=== PATIENT | female | born 1985 | race Caucasian/White ===

== ENCOUNTER 2022-03-08 13:31 | Emergency (ER) | payer MEDICAID, SELFPAY ==
[2022-03-08 13:32] VITALS: BP 132/88; PULSE 105; RESP 14; TEMP 36.7; O2SAT 97; BMI 25.9
[2022-03-08 14:05] LABS: Bacteria 0 SEEN /hpf (None Seen); Mucous, Urine 0 SEEN /hpf (<or=2+); Red Blood Cells-Urine 0 SEEN /hpf (0-5); Squamous Epithelial Cells - UA 0 SEEN /hpf (5-10); White Blood Cells 0 SEEN /hpf (0-5)
[2022-03-08 14:08] LABS: Color, Urine Yellow (Yellow); Glucose, Dipstick Normal (Normal); Ketone-Dipstick Negative (Negative); Leukocyte Esterase-Dipstick Negative /ul (Negative); Nitrite-Dipstick Negative (Negative); Occult Blood-Urine Negative /ul (Negative); Protein-Dipstick Negative (Negative); Urine Bilirubin Dipstick Negative (Negative); Urine Clarity Clear (Clear); Urine Urobilinogen Normal (Normal); Urine pH 6.5 (5.0 - 8.0)
--- NOTE | 2022-03-08 14:16 | ED.RN ---
PT STATES THEY CAN'T WAIT THIS LONG AND ALREADY HAVE A APPT WITH THE PCP TOMORROW.
== END 2022-03-08 14:14 | disposition left against medical advice (07) ==
LOC: ED 14:23
PROVIDERS: PCP Internal Medicine
DX: Z53.21 Procedure and treatment not carried out due to patient leaving prior to being seen by health care provider (principal)
CPT/HCPCS: 81001; 87428

== ENCOUNTER → 2022-03-09 | Outpatient (CLI) | payer MEDICAID, SELFPAY ==
[2022-03-09 11:06] LABS: Bacteria 0 SEEN /hpf (None Seen); Mucous, Urine 0 SEEN /hpf (<or=2+); Red Blood Cells-Urine 0 SEEN /hpf (0-5); Squamous Epithelial Cells - UA 0 SEEN /hpf (5-10); White Blood Cells 0 SEEN /hpf (0-5)
[2022-03-09 12:52] LABS: Color, Urine Yellow (Yellow); Glucose, Dipstick Normal (Normal); Ketone-Dipstick Negative (Negative); Leukocyte Esterase-Dipstick Negative /ul (Negative); Nitrite-Dipstick Negative (Negative); Occult Blood-Urine Negative /ul (Negative); Protein-Dipstick Negative (Negative); Urine Bilirubin Dipstick Negative (Negative); Urine Clarity Clear (Clear); Urine Urobilinogen Normal (Normal)
[2022-03-09 12:57] LABS: Absolute Lymphocyte Count 2.18 X10^3/uL (0.83-4.51); Absolute Neutrophil Count 4.8 X10^3/uL (2.0-7.7); Basophil# 0.06 X10^3/uL; Basophil% 0.8 % (0-1); Eosinophil# 0.06 X10^3/uL; Eosinophils% 0.8 % (0-5); Hematocrit 40.8 % (37-47); Hemoglobin 12.9 g/dL (12.0-15.0); Lymphocyte # 2.18 X10^3/ul (0.83-4.51); Lymphocyte % 28.8 % (19-41); Mean Corp Hgb Conc 31.6 g/dL (32-36); Mean Corpuscular Hgb 29.5 pg (27.0-32.0); Mean Corpuscular Volume 93.2 fL (81-99); Mean Platelet Vol. 8.9 fl (6.2-12.0); Monocyte# 0.47 X10^3/uL; Monocyte% 6.2 % (0-10); NRBC Flagged by Analyzer 0 % (0-5); Neutrophil # 4.76 X10^3/uL (2.7-7.7); Platelet Count 430 K/mm3 (150-450); RBC Distribution Width CV 12.3 % (11.6-14.6); RBC Distribution Width SD 42.5 fl (35.1-43.9); Red Blood Count 4.38 M/mm3 (4.2-5.4); White Blood Count 7.6 K/mm3 (4.4-11.0)
[2022-03-09 13:34] LABS: AST(SGOT) 16 U/L (15-37); Alanine Aminotransfer ALT/SGPT 25 U/L (13-56); Albumin, Serum 3.7 g/dL (3.2-5.0); Alkaline Phosphatase 64 U/L (45-117); Anion Gap 6 (5-15); BUN 9 mg/dL (7-18); Calcium,Total 8.7 mg/dL (8.5-10.1); Chloride 104 mmol/L (98-107); Creatinine, Serum 0.56 mg/dL (0.55-1.02); EST Glomerular Filtration Rate 130 mL/min (>60); Est Glom Filt Rate - Afr Amer 157 mL/min (>60); Globulin 3.7 g/dL (2.2-4.2); Glucose 119 mg/dL (74-106); Potassium 3.9 mmol/L (3.5-5.1); Protein, Total 7.4 g/dL (6.4-8.2); Sodium Level 137 mmol/L (136-145)
== END | disposition home or self-care (01) ==
LOC: BIMLAB 10:14
PROVIDERS: PCP Internal Medicine; Referring Provider Physician Assistant; Visit Provider Physician Assistant
DX: K21.9 Gastro-esophageal reflux disease without esophagitis (principal); R30.0 Dysuria
CPT/HCPCS: 36415; 80053; 81001; 85025; 87086; 87088

== ENCOUNTER → 2022-06-02 | Outpatient (CLI) | payer MEDICAID, SELFPAY ==
[2022-06-02 12:42] LABS: Erythrocyte Sedimentation Rate 5 mm/hr (0-30)
[2022-06-02 12:43] LABS: Absolute Lymphocyte Count 2.52 X10^3/uL (0.83-4.51); Basophil# 0.07 X10^3/uL; Basophil% 1.1 % (0-1); Eosinophil# 0.13 X10^3/uL; Eosinophils% 2.1 % (0-5); Hematocrit 38.1 % (37-47); Hemoglobin 12.6 g/dL (12.0-15.0); Lymphocyte # 2.52 X10^3/ul (0.83-4.51); Lymphocyte % 40.7 % (19-41); Mean Corp Hgb Conc 33.1 g/dL (32-36); Mean Corpuscular Hgb 30.1 pg (27.0-32.0); Mean Corpuscular Volume 90.9 fL (81-99); Mean Platelet Vol. 9.5 fl (6.2-12.0); Monocyte# 0.44 X10^3/uL; Monocyte% 7.1 % (0-10); NRBC Flagged by Analyzer 0 % (0-5); Neutrophil # 3.02 X10^3/uL (2.7-7.7); Neutrophil % 48.8 % (47-70); Platelet Count 391 K/mm3 (150-450); RBC Distribution Width CV 12.9 % (11.6-14.6); RBC Distribution Width SD 42.5 fl (35.1-43.9); Red Blood Count 4.19 M/mm3 (4.2-5.4); White Blood Count 6.2 K/mm3 (4.4-11.0)
[2022-06-02 12:57] LABS: Vitamin D,25 Hydroxy 126.4 ng/mL
[2022-06-02 13:13] LABS: AST(SGOT) 17 U/L (15-37); Alanine Aminotransfer ALT/SGPT 39 U/L (13-56); Alkaline Phosphatase 69 U/L (45-117); Anion Gap 9 (5-15); BUN 9 mg/dL (7-18); BUN/Creat Ratio 18.6 RATIO (10-20); CRP 6.24 mg/L (0.0-3.0); Calcium,Total 9.1 mg/dL (8.5-10.1); Chloride 98 mmol/L (98-107); Creatinine, Serum 0.48 mg/dL (0.55-1.02); EST Glomerular Filtration Rate 154 mL/min (>60); Est Glom Filt Rate - Afr Amer 187 mL/min (>60); Glucose 86 mg/dL (74-106); Potassium 3.6 mmol/L (3.5-5.1); Sodium Level 133 mmol/L (136-145); Thyroid Stim Hormone (TSH) 0.85 uIU/mL (0.358-3.74)
[2022-06-02 13:28] LABS: Carbamazepine (Tegretol) 10.2 ug/mL (4.0-12.0)
[2022-06-03 13:08] LABS: Anti-Centromere B Ab <0.2 AI (0.0-0.9); Anti-Chromatin <0.2 AI (0.0-0.9); Anti-Jo <0.2 AI (0.0-0.9); Anti-Scleroderma-70 AB <0.2 AI (0.0-0.9); RNP Ab 0.2 AI (0.0-0.9); SJOGREN'S Anti-SS-A test < 0.2 AI (0.0-0.9); SJOGREN'S Anti-SS-B test < 0.2 AI (0.0-0.9); Smith Ab <0.2 AI (0.0-0.9)
[2022-06-03 14:58] LABS: ANTINUCLEAR ANTIBODIES DIRECT Negative (Negative); Anti-dsDNA Ab 8 IU/mL (0-9)
[2022-06-07 16:36] LABS: CCP IgG Antibodies 3 units (0-19)
== END | disposition home or self-care (01) ==
LOC: BIMLAB 10:43
PROVIDERS: PCP Internal Medicine; Visit Provider Internal Medicine
DX: Z51.81 Encounter for therapeutic drug level monitoring (principal); Z79.899 Other long term (current) drug therapy; E55.9 Vitamin D deficiency, unspecified; M25.9 Joint disorder, unspecified
CPT/HCPCS: 36415; 80053; 80156; 82306; 84443; 85025; 85652; 86038; 86140; 86200; 86225; 86235

== ENCOUNTER → 2022-06-20 | Outpatient (CLI) | payer MEDICAID, SELFPAY ==
[2022-06-23 05:07] LABS: Chlamydia By Nucleic Acid AMP Negative (Negative); Gonococcus By Nucleic Acid AMP Negative (Negative)
[2022-06-28 21:07] LABS: HPV APTIMA, High Risk Negative (Negative)
== END | disposition home or self-care (01) ==
PROVIDERS: PCP Internal Medicine; Referring Provider Registered Nurse; Visit Provider Registered Nurse
DX: Z12.4 Encounter for screening for malignant neoplasm of cervix (principal); N89.8 Other specified noninflammatory disorders of vagina
CPT/HCPCS: 87070; 87205; 87491; 87591; 87624; 88175; G0145

== ENCOUNTER 2022-08-09 15:00 | Outpatient (RCR) | payer MEDICAID, SELFPAY ==
--- NOTE | 2022-07-04 13:39 | HP.OTEVAL ---
Patient's Visit Information AMBER BARRETT is a 36 year old F, referred to Occupational Therapy by Dr. Marty Villanueva MD, with a diagnosis of left wrist pain. Date of Evaluation: 07/04/22 Occupational Therapist: ANA Vences/Stanton, CHT - Subjective This 36 year old female was seen for OT eval with dx of left wrist pain. Pt states May of 2021 she suffered a fall down her stairs and broke her left wrist. Pt states she went to ER and 5-6 days following was seen by Loc Ortiz and had soft splinting done. Pt states she was in soft splinting (not a cast 6 weeks). Pt states she had a young child and did not undergo any therapy following removal of soft splint. Pt states when she put weight on her left hand to push up from the floor or other surfaces/or support herself. pt states would like to know what she can do to prevent pain with getting up off the floor etc. pt does not work and has a 3 year old dtr. so if she can not do what she needs done it does not get done. pt is right handed. - ADLs Kitchen: Chop with knife, Open jars, Lift gallon of milk, Lift saucepan, Take dish out of oven, Load/unload zinc furnace charger Household: Vacuum, Sweep/mop, Laundry Yard: Mow lawn Comments: self propelled mower - sore Comments: pt states carrying groceries is the most difficult. when carrying her dtr left wrist does hurt as well. - Pain left wrist 2 Pain Intensity Range: 5, 6 - ROM Forearm: right/left WNL (reports pulling in left radial side of wrist with pron. Wrist: right 75/65 left 65/40 ROM Comments: right RD 15* UD 30*. left RD 15* UD 30* - Strength Wrist: right 50# left 55# Mushroom Sorter Grader: right 12# left 12# Lateral Pinch: right 10# left 10# Tripod Pinch: right 6# left 6# - Sensation Thumb: right 2.83 left 2.83 Index: right 2.83 left 2.83 Middle: right 2.83 left 2.83 Ring: right 2.83 left 2.83 Little: right 2.83 left 2.83 Sensation Comments: tingling due to positive CTS testing in the past 2018. today reports tingling at times LF and RF - Special Tests Quiles Scaphoid Shift: negative CMC Grind: negative Thumb/Index Pinch: negative - Quick DASH-Disab of Arm,Shoulder& Hand Quick DASH Score: 38.6350 - Goals Goal:: pt will demo left wrist ROM increase by 20* to increase pts ind. with ADLs and IADls by d/c Goal:: pt will report pain no greater than 2/10 with use of left hand with daily tasks by d.c Goal:: pt will demo understanding of wrist stabilization ex to avoid excessive stress on wrist ligament structures by D/C. pt will demo wrist ergo with lifting tasks to alleviate pain with ADls and IADls by d.c Goal:: pt will demo understanding on using brace at night while sleeping and during heavy lifting tasks by d/c - Rehabilitation General Assessment: pt demo with a decrease in left wrist ROM compared to unaffected side as well as pain with wt bearing. this therapists did not feel click or pop with ROM. noted pt did feel better with light traction. pt demo with pain and limited ROM limiting pts ind. with ADLs and IADLS. Pt would benefit from skilled OT services 2x week for 4 weeks. Therapy will ed. pt on dx, work ergo. and ROM to pts tolerance. pt demo understanding and agree to POC. Rehabilitation Potential: Good - Anticipated Interventions A/AAROM/PROM, Strengthening, Modalities, Joint Protection/Energy Conservation, Ergonomic Education, Education re assistive Equipment, Education re Diagnosis - Visit Plan Frequency: 1-2x /Week Duration: 4 Weeks General Plan: pt to initiate wearing wrist brace at night and with heavy lift tasks. Pt to initiate short arch ROM to prevent ligament stress. will initiate wrist stabilization ex. ed. pt on wrist ergo and adaptive means to prevent carpal pain. TEXT: Thank you for the opportunity to evaluate your patient. For Medicare and Medicare HMO plans, please review the plan of care and approve it. It will need to be FAXED BACK to us at [phone] for Medicare purposes. Please let me know if there are questions or concerns regarding this plan of care. Physician Signature: Date:
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
--- NOTE | 2022-10-27 10:42 | HP.OTDCNRP_ITS ---
Patient Information Patient Information: AMBER BARRETT was seen in my office for initial evaluation on 07/04/22. The following Plan of Care was established for this patient: POC Established Initial Frequency: 1-2x /Week Initial Duration: 4 Weeks Plan: Continue POC: Anticipated Interventions Anticipated Interventions: A/AAROM/PROM, Strengthening, Modalities, Joint Protec tion/Energy Conservation, Ergonomic Education, Education re assistive Equipment and Education re Diagnosis Last Seen Last Seen: This patient was last seen in our office 08/09/22. Pertinent comments regarding their Occupational therapy will appear below: pt was seen for 3/5 scheduled apts. one cancellation and one no show- No further apts are scheduled at this time and due to time lapse in services pt is d/c. At this point I will be discontinuing this patient from occupational therapy. I would be happy to see this patient again in the future if found appropriate by the physician. Thank you! Katalina Fischer, OTR/L, CHT
== END 2022-08-09 19:00 | disposition home or self-care (01) ==
LOC: OT 15:00
PROVIDERS: PCP Internal Medicine; Referring Provider Orthopaedic Surgery Sports Medicine; Visit Provider Orthopaedic Surgery Sports Medicine
DX: M25.532 Pain in left wrist (principal); M50.30 Other cervical disc degeneration, unspecified cervical region; M53.84 Other specified dorsopathies, thoracic region; Z87.828 Personal history of other (healed) physical injury and trauma
CPT/HCPCS: 97110; 97161; 97166

== ENCOUNTER → 2022-09-13 | Outpatient (CLI) | payer MEDICAID, SELFPAY ==
[2022-09-13 14:02] LABS: Bacteria 0 SEEN /hpf (None Seen); Mucous, Urine 0 SEEN /hpf (<or=2+); Red Blood Cells-Urine 0 SEEN /hpf (0-5); White Blood Cells 0 SEEN /hpf (0-5)
[2022-09-13 14:33] LABS: Color, Urine Yellow (Yellow); Glucose, Dipstick Normal (Normal); Ketone-Dipstick Negative (Negative); Leukocyte Esterase-Dipstick 25 /ul (Negative); Nitrite-Dipstick Negative (Negative); Occult Blood-Urine 10 /ul (Negative); Protein-Dipstick Negative (Negative); Urine Bilirubin Dipstick Negative (Negative); Urine Clarity Clear (Clear); Urine Urobilinogen Normal (Normal)
[2022-09-13 14:44] LABS: Squamous Epithelial Cells - UA 0-5 SEEN /hpf (5-10)
== END | disposition home or self-care (01) ==
LOC: LAB 13:55
PROVIDERS: PCP Internal Medicine; Referring Provider Registered Nurse; Visit Provider Registered Nurse
DX: R30.0 Dysuria (principal)
CPT/HCPCS: 81001; 87086; 87088

== ENCOUNTER 2022-10-01 12:13 | Emergency (ER) | payer MEDICAID, SELFPAY ==
[2022-10-01 12:14] VITALS: BP 124/80; PULSE 84; RESP 16; TEMP 36.9; O2SAT 98; BMI 25.0
--- NOTE | 2022-10-01 12:39 | EDS_ITS ---
HPI HPI - Female History of Present Illness Chief Complaint: Female C/O Informant: patient Pain Pain: Positive for Vaginal Pain Onset: Yesterday Context: Gradual Onset Narrative Narrative: Patient presents with vaginal pain and itching for the past 2 days. She has not noted significant discharge. She denies urinary symptoms. Patient was seen earlier this month by [facility] for annual pelvic exam. Although prescription for Loestrin was written at that time she has not yet started that medication. [facility] Medical History Hx of carpal tunnel syndrome Hx of gallstones Hx of gastroesophageal reflux (GERD) Hx of osteoarthritis Left wrist pain Unspecified mood [affective] disorder Home Medications coenzyme Q10 10 mg capsule 10 mg PO DAILY #30 caps 11/18/21 [Rx Last Taken Unknown] ferrous sulfate 325 mg (65 mg iron) tablet (Feosol) 325 mg PO DAILY 11/18/21 [History Last Taken Unknown] ascorbic acid (vitamin C) 1,000 mg tablet 1 g PO DAILY #30 tabs 03/02/22 [Rx Last Taken Unknown] Lactobacillus acidophilus-Bifidobac.animalis 15.5 billion cell capsule (Zelac) 1 cap PO DAILY #30 caps 03/23/22 [Rx Last Taken Unknown] transparent dressings 4 X 4 3/4 #50 ea 03/31/22 [Rx Last Taken Unknown] atomoxetine 40 mg capsule (Strattera) 40 mg PO BID 04/19/22 [History Last Taken Unknown] hydroxyzine HCl 50 mg tablet 50 mg PO QHS 04/19/22 [History Last Taken Unknown] lurasidone 80 mg tablet (Latuda) 80 mg PO DAILY 04/19/22 [History Last Taken Unknown] guaifenesin 600 mg tablet, extended release 12 hr 600 mg PO Q12H PRN cough #20 tabs 05/02/22 [Rx Last Taken Unknown] fluticasone propionate 50 mcg/actuation nasal spray,suspension (Flonase Allergy Relief) 1 spray intranasal QHS #16 grams 05/05/22 [Rx Last Taken Unknown] carbamazepine 400 mg tablet,extended release,12 hr (Tegretol XR) 400 mg PO TID 06/02/22 [History Last Taken Unknown] ergocalciferol (vitamin D2) 1,250 mcg (50,000 unit) capsule 50,000 unit PO QWEEK 06/02/22 [History Last Taken Unknown] paroxetine HCl 37.5 mg tablet,extended release 24 hr (Paxil CR) 25 mg PO DAILY 06/02/22 [History Last Taken Unknown] norethindrone acetate 1 mg-ethinyl estradiol 20 mcg tablet (Loestrin) 1 tab PO DAILY #63 tabs 06/20/22 [Rx Last Taken Unknown] ahnbturkhd-MK-pgnbeqryugyhc 6.25 mg-15 mg-325 mg capsule (Nighttime Cold-Flu) 1 cap PO QHS PRN cold symptoms #10 caps 06/28/22 [Rx Last Taken Unknown] omeprazole 20 mg capsule,delayed release 20 mg PO BID #60 caps 07/07/22 [Rx Last Taken Unknown] methylcellulose (laxative) 500 mg tablet (Fiber Laxative (methylcellulose)) 500 mg PO DAILY #30 tabs 07/11/22 [Rx Last Taken Unknown] lactic acid 1.8 %-citric ac 1 %-potassium bitartate 0.4 % vaginal gel (Phexxi) 1 appful vaginal PER PKG DIR #60 grams 07/14/22 [Rx Last Taken Unknown] promethazine 12.5 mg tablet 12.5 mg PO TID PRN nausea and vomiting #10 tabs 08/15/22 [Rx Last Taken Unknown] nicotine 14 mg/24 hr daily transdermal patch 1 patch transdermal DAILY #28 ea 08/26/22 [Rx Last Taken Unknown] calcium carbonate 200 mg calcium (500 mg) chewable tablet (Antacid (calcium carbonate)) 200 mg PO BID PRN dyspepsia #60 tabs 09/05/22 [Rx Last Taken Unknown] multivitamin with minerals-folic acid 200 mcg chewable tablet (Women's Multivitamin Gummies) 1 tab PO DAILY #30 tabs 09/07/22 [Rx Last Taken Unknown] acetaminophen 500 mg capsule 1,000 mg (2 x 500 mg) PO BID PRN pain #120 caps 09/12/22 [Rx Last Taken Unknown] phenazopyridine 100 mg tablet (Pyridium) 100 mg PO TID #14 tabs 09/14/22 [Rx Last Taken Unknown] fluconazole 150 mg tablet (Diflucan) 150 mg PO DAILY #1 TAB 10/01/22 [Rx Last Taken Unknown] metronidazole 500 mg tablet 500 mg PO BID 7 days #14 tabs 10/01/22 [Rx Last Taken Unknown] Allergy/AdvReac Type Severity Reaction Status Date / Time amoxicillin Allergy Other Verified 06/20/22 13:06 sulfamethoxazole Allergy Other Verified 06/20/22 13:06 [From Bactrim] Corticosteroids AdvReac Mild ANXIETY Verified 10/01/22 12:16 (Glucocorticoids) Quinolones AdvReac Mild FATIGUE Verified 10/01/22 12:18 Family History Grandmother Arthritis Mother Multiple sclerosis Surgical History History of carpal tunnel release Hx of cholecystectomy Social History household members: children housing: apartment current occupational status: unemployed sexually active: No Smoking Status: Current every day smoker tobacco type: cigarettes Electronic Cigarette Use: not used alcohol intake: never substance use type: does not use what type of physical activity do you participate in: none seatbelt use: always do you feel safe at home: Yes ROS ROS ED Constitutional Constitutional ED: Denies chills or fever(s) Eyes Eyes: Denies change in vision ENT ENT ED: Denies rhinorrhea or sore throat Cardiovascular Cardiovascular: Denies chest pain Respiratory/Chest Respiratory/Chest: Denies cough or dyspnea Gastrointestinal Gastrointestinal: Denies abdominal pain, diarrhea, nausea or vomiting Genitourinary Genitourinary ED: Reports other Details: Vaginal pain and itching ; Denies difficulty urinating or dysuria Musculoskeletal Musculoskeletal: Denies back pain or extremity pain Integumentary Denies Abrasions or rash Neurologic Neurologic: Denies headache(s) or weakness Allergic/Immunologic Allergic/Immunologic ED: Denies lip swelling or urticaria EXAM Physical Exam Const Vital Signs: 10/01/22 12:14 Temperature 98.4 F Temperature Source Temporal Pulse Rate 84 Respiratory Rate 16 Blood Pressure 124/80 H Blood Pressure Mean 94 Pulse Ox 98 Oxygen Delivery Method Room Air Positive well nourished and well developed General Appearance ED: well developed HEENT Reports normocephalic and head/scalp atraumatic Eyes PERRL and EOMs intact bilaterally Neck supple Chest Wall inspection of chest normal and palpation of chest normal Resp normal respiratory effort and clear to auscultation bilaterally Cardio regular rate and regular rhythm GI normal to inspection, nondistended, normoactive bowel sounds Palpation: soft Narrative: Examination reveals no external lesions. Speculum examination reveals thick yellow discharge. I do not see obvious yeast at this time. No significant tenderness of the cervix. Extremity normal to inspection Neuro oriented x3 and no sensory deficits noted Sensorium / Orientation: alert Motor Exam: strength 5/5 throughout Psych mental status grossly normal Skin no rashes or lesions noted MDM MDM MDM Narrative Medical decision making narrative: Patient is adamant that she does not have an STD. Urinalysis was sent along with urine test. Urinalysis reveals 10-25 white cells but 0 bacteria. test is negative. With pelvic examination revealing yellow discharge I will cover her with 7 days of Flagyl for bacterial vaginosis. She will then be given a dose of Diflucan following this. Return instructions were provided. Lab Data Labs: Laboratory Results - last 24 hr 10/01/22 12:48 Urine Color Yellow Urine Clarity Sl. Cloudy Urine pH 6.0 Ur Specific [place] 1.015 Urine Protein 15 H Urine Glucose (UA) Normal Urine Ketones 5 H Urine Occult Blood 10 H Urine Nitrite Negative Urine Bilirubin Negative Urine Urobilinogen Normal Ur Leukocyte Esterase 100 H Urine RBC 0-5 SEEN Urine WBC 10-25 SEEN Ur Squamous Epith Cells 0-5 SEEN Urine Bacteria 0 SEEN Urine Mucus 0 SEEN Urine Test Negative Discharge Plan Triage Chief Complaint: Female C/O ED Provider: Mirtha Rajan Dx/Rx/DC Orders Clinical Impression: Bacterial vaginosis Instructions: ED Bacterial Vaginosis (BV) Prescriptions: New metronidazole 500 mg tablet 500 mg PO BID 7 Days Qty: 14 0RF fluconazole [Diflucan] 150 mg tablet 150 mg PO DAILY Qty: 1 0RF Rx Instructions: Take at completion of antibiotic course No Action ferrous sulfate [Feosol] 325 mg (65 mg iron) tablet 325 mg PO DAILY coenzyme Q10 10 mg capsule 10 mg PO DAILY Qty: 30 0RF ascorbic acid (vitamin C) 1,000 mg tablet 1 g PO DAILY Qty: 30 5RF norethindrone ac-eth estradiol [Loestrin 03/25 (21)] 1-20 mg-mcg tablet 1 tab PO DAILY Qty: 63 4RF atomoxetine [Strattera] 40 mg capsule 40 mg PO BID hydroxyzine HCl 50 mg tablet 50 mg PO QHS lurasidone [Latuda] 80 mg tablet 80 mg PO DAILY Rx Instructions: must administer with food (at least 350 calories) carbamazepine [Tegretol XR] 400 mg tablet extended release 12 hr 400 mg PO TID paroxetine HCl [Paxil CR] 37.5 mg tablet extended release 24 hr 25 mg PO DAILY fluticasone propionate [Flonase Allergy Relief] 50 mcg/actuation spray,suspension 1 spray intranasal QHS Qty: 16 0RF Rx Instructions: administer into each nostril ergocalciferol (vitamin D2) 1,250 mcg (50,000 unit) capsule 50,000 unit PO QWEEK Zelac 15.5 billion cell capsule 1 cap PO DAILY Qty: 30 2RF (DME) transparent dressings 4 X 4 3/4 bandage See Rx Instructions .Route Qty: 50 2RF Rx Instructions: Change daily guaifenesin 600 mg tablet extended release 12hr 600 mg PO Q12H PRN (Reason: cough) Qty: 20 0RF Nighttime Cold-Flu 6.25-15-325 mg capsule 1 cap PO QHS PRN (Reason: cold symptoms) Qty: 10 0RF omeprazole 20 mg capsule,delayed release(DR/EC) 20 mg PO BID Qty: 60 2RF Fiber Laxative(methylcellulos) 500 mg tablet 500 mg PO DAILY Qty: 30 0RF Phexxi 1.8-1-0.4 % gel 1 appful vaginal PER PKG DIR Qty: 60 3RF Rx Instructions: insert 1 applicatorful vaginally within 1 hour before each act of vaginal intercourse promethazine 12.5 mg tablet 12.5 mg PO TID PRN (Reason: nausea and vomiting) Qty: 10 0RF Rx Instructions: 2 doses during day; last dose no later than 4 hr before bedtime nicotine 14 mg/24 hr patch 24 hour 1 patch transdermal DAILY Qty: 28 1RF calcium carbonate [Antacid (calcium carbonate)] 200 mg calcium (500 mg) tablet,chewable 200 mg PO BID PRN (Reason: dyspepsia) Qty: 60 0RF Women's Multivitamin Gummies 200 mcg tablet,chewable 1 tab PO DAILY Qty: 30 1RF acetaminophen 500 mg capsule 1,000 mg PO BID PRN (Reason: pain) Qty: 120 0RF phenazopyridine [Pyridium] 100 mg tablet 100 mg PO TID Qty: 14 0RF Primary Care Provider: More Denson Referrals: More Denson MD [Primary Care Provider] - Nida Burrell CNM [Med Staff - [facility]] - 10-14 Days if not better Disposition Disposition: Home, Self Care
[2022-10-01 12:52] LABS: Bacteria 0 SEEN /hpf (None Seen); Mucous, Urine 0 SEEN /hpf (<or=2+)
[2022-10-01 12:57] LABS: Color, Urine Yellow (Yellow); Glucose, Dipstick Normal (Normal); Ketone-Dipstick 5 mg/dl (Negative); Leukocyte Esterase-Dipstick 100 /ul (Negative); Nitrite-Dipstick Negative (Negative); Occult Blood-Urine 10 /ul (Negative); Protein-Dipstick 15 mg/dl (Negative); Specific Gravity, Urine 1.015 (1.002-1.030); Urine Bilirubin Dipstick Negative (Negative); Urine Clarity Sl. Cloudy (Clear); Urine Urobilinogen Normal (Normal)
[2022-10-01 13:06] LABS: Internal QC Validated? YES +Cl - CLEAR BKGD; Red Blood Cells-Urine 0-5 SEEN /hpf (0-5); Squamous Epithelial Cells - UA 0-5 SEEN /hpf (5-10); White Blood Cells 10-25 SEEN /hpf (0-5)
[2022-10-01 13:07] LABS: Pregnancy, Urine Negative Negative
[2022-10-01 13:27] VITALS: RESP 16
== END 2022-10-01 13:29 | disposition home or self-care (01) ==
PROVIDERS: Emergency Provider Emergency Medicine; PCP Internal Medicine; Visit Provider Emergency Medicine
DX: N76.0 Acute vaginitis (principal); F17.210 Nicotine dependence, cigarettes, uncomplicated
CPT/HCPCS: 81001; 81025; 99282

== ENCOUNTER → 2022-10-31 | Outpatient (CLI) | payer MEDICAID, SELFPAY ==
--- NOTE | 2022-10-31 12:54 | MRI_ITS ---
EXAM: MR Spine Cervical W/O Contrast HISTORY: pain, h/o fall down steps 1 yr ago TECHNIQUE: MR Spine Cervical W/O Contrast COMPARISON: XR cervical spine June 27, 2022. LIMITATIONS: None. FINDINGS: Slight anterior wedge deformity of C5 is similar to the prior exam. No acute fracture. No gross disc protrusion. No central canal stenosis. Signal within the spinal cord is normal. 4 mm nodule is suspected in the left lobe of the thyroid gland. MRI/Spine Cervical (Routine) IMPRESSION: No significant abnormality. Electronically Signed: Jordin Soriano MD at 6:02 EDT ,
--- NOTE | 2022-10-31 12:54 | MRI_ITS ---
EXAM: MR Spine Thoracic W/O Contrast HISTORY: pain, h/o fall down steps 1 yr ago TECHNIQUE: MR Spine Thoracic W/O Contrast COMPARISON: XR thoracic spine June 27, 2022. LIMITATIONS: None. FINDINGS: No acute fracture identified. No gross disc protrusion or central canal stenosis. Signal within the spinal cord is normal. Hemangioma in the T6 vertebral body. The common bile duct is mildly dilated measuring 6 to 7 mm. A 2 cm nodule in the left adrenal gland is suspected. MRI/Spine Thoracic (Routine) IMPRESSION: No significant abnormality of the thoracic spine. Suspected 2 cm left adrenal nodule. Mild dilatation of the common bile duct. Nonemergent CT abdomen and pelvis is recommended to evaluate the adrenal nodule and common bile duct. Electronically Signed: Jordin Soriano MD at 5:49 EDT ,
== END | disposition home or self-care (01) ==
PROVIDERS: PCP Internal Medicine; Referring Provider Orthopaedic Surgery; Visit Provider Orthopaedic Surgery
DX: M53.84 Other specified dorsopathies, thoracic region (principal); M50.30 Other cervical disc degeneration, unspecified cervical region
CPT/HCPCS: 72141; 72146

== ENCOUNTER → 2022-11-23 | Outpatient (CLI) | payer MEDICAID, SELFPAY ==
--- NOTE | 2022-11-23 12:33 | US_ITS ---
ACR Level 3 findings have been noted. An addendum which confirms receipt of the report will follow. EXAM: US SOFT TISSUES HEAD AND NECK, THYROID CLINICAL INDICATION: thyroid nodule TECHNIQUE: Greyscale and color doppler imaging was performed of the thyroid gland. COMPARISON: MRI cervical spine, 10/31/2022. FINDINGS: LEFT THYROID LOBE: 4 mm left thyroid nodule. This nodule is of uncertain composition due to calcification, is of indeterminate echogenicity, pqgcj-ajrg-npkz, ill-defined, contains microcalcifications and is peripherally calcified. TI-RADS points: 6. TI-RADS category: TR4. This nodule is moderately suspicious but no FNA or follow-up is necessary given the small size of this nodule. The left thyroid lobe measures 4.6 x 1.9 x 1.7 cm. 6 mm left thyroid nodule. This nodule is mixed cystic and solid, very hypoechoic, iorgj-utyc-xwvr, ill-defined and contains no echogenic foci. TI-RADS points: 4. TI-RADS category: TR4. This nodule is moderately suspicious but no FNA or follow-up is necessary given the small size of this nodule. 7 mm left thyroid nodule. This nodule is solid or almost completely solid, hyperechoic or isoechoic, elnsp-mmlp-epna, ill-defined and contains no echogenic foci. TI-RADS points: 3. TI-RADS category: TR3. This nodule is mildly suspicious but no FNA or follow-up is necessary given the small size of this nodule. RIGHT THYROID LOBE: There is a 1.6 cm right thyroid lobe nodule. It may be 2 adjacent nodules. This nodule is solid or almost completely solid, hyperechoic or isoechoic, tlree-rogt-fjeg, is lobulated or irregular, contains microcalcifications and contains punctate echogenic foci. TI-RADS points: 9. TI-RADS category: TR5. This nodule is highly suspicious. Recommend FNA evaluation. 5 mm right thyroid nodule. This nodule is of uncertain composition due to calcification, is of indeterminate echogenicity, bkfkz-iulq-tbdg, ill-defined, contains microcalcifications and is peripherally calcified. TI-RADS points: 6. TI-RADS category: TR4. This nodule is moderately suspicious but no FNA or follow-up is necessary given the small size of this nodule. There is a 6 mm nodule which is either exophytic from or distinct from the thyroid posteriorly in the right lobe. This nodule is solid or almost completely solid, hypoechoic, rslyp-xxao-vpee, smoothly marginated and contains no echogenic foci. TI-RADS points: 4. TI-RADS category: TR4. This nodule is moderately suspicious but no FNA or follow-up is necessary given the small size of this nodule. It is possible that this is a parathyroid adenoma. Correlate clinically and follow-up as necessary. The right thyroid lobe measures 4.9 x 1.7 x 1.9 cm. ISTHMUS: The thyroid isthmus measures 0.3 cm. No thyroid nodules are present. US/Thyroid IMPRESSION: 1. There is a 1.6 cm right thyroid lobe nodule. It may be 2 adjacent nodules. This nodule is solid or almost completely solid, hyperechoic or isoechoic, pwkkb-eder-vzjn, is lobulated or irregular, contains microcalcifications and contains punctate echogenic foci. TI-RADS points: 9. TI-RADS category: TR5. This nodule is highly suspicious. Recommend FNA evaluation. 2. There is a 6 mm nodule which is either exophytic from or distinct from the thyroid posteriorly in the right lobe. This nodule is solid or almost completely solid, hypoechoic, nwktr-kucg-kbur, smoothly marginated and contains no echogenic foci. TI-RADS points: 4. TI-RADS category: TR4. This nodule is moderately suspicious but no FNA or follow-up is necessary given the small size of this nodule. It is possible that this is a parathyroid adenoma. Correlate clinically and follow-up as necessary. 3. Other nodules including the body report with either based on size or characteristics do not require FNA or follow-up. Electronically Signed: Harvey Banda DO at 20:38 EDT ,
== END | disposition home or self-care (01) ==
PROVIDERS: PCP Internal Medicine; Referring Provider Internal Medicine; Visit Provider Internal Medicine
DX: E04.1 Nontoxic single thyroid nodule (principal)
CPT/HCPCS: 76536

== ENCOUNTER → 2022-11-29 | Outpatient (CLI) | payer MEDICAID, SELFPAY ==
--- NOTE | 2022-11-29 08:33 | CT_ITS ---
STUDY: CT ABDOMEN AND PELVIS WITH AND WITHOUT CONTRAST REASON FOR EXAM: Female, 37 years old. Adrenal nodule. RADIATION DOSAGE (If Supplied By Facility): CTDIvol = ( 21.23 ) mGy, DLP = ( 2489.93 ) mGycm TECHNIQUE: Transaxial images were obtained from the dome of the diaphragm to the symphysis pubis without oral contrast. 100ML ISOVUE 300 was administered. Sagittal and coronal images were reconstructed. Individualized dose optimization techniques were used for this CT. COMPARISON: None. FINDINGS: The visualized lung bases are unremarkable. The visualized portions of the heart are within normal limits. There is decreased attenuation of the liver consistent with steatosis. There are surgical clips in the gallbladder fossa consistent with a prior cholecystectomy. Normal spleen. Normal pancreas. There is a small, circumscribed, smooth, low attenuation left adrenal mass, consistent with an adrenal adenoma. This measures 1.7 cm. Normal right adrenal gland. Normal right kidney. Normal left kidney. Normal visualized stomach. Normal small intestine. Normal colon. The appendix is visualized and appears normal. Normal abdominal aorta. Normal inferior vena cava. Normal retroperitoneum. Normal urinary bladder. Normal abdominal wall. Normal osseous structures. CT/CT Abd/Pelvis W/WO Contrast IMPRESSION: Fatty infiltration of the liver. 1.7 cm well-defined hypodense nodule in the left adrenal gland suggestive of a adrenal adenoma. Status post cholecystectomy. Electronically Signed: Prasanna Braun MD at 12:57 EDT ,
== END | disposition home or self-care (01) ==
LOC: CT 08:26
PROVIDERS: PCP Internal Medicine; Referring Provider Internal Medicine; Visit Provider Internal Medicine
DX: E27.8 Other specified disorders of adrenal gland (principal)
CPT/HCPCS: 74178; Q9967

== ENCOUNTER → 2022-12-09 | Outpatient (CLI) | payer MEDICAID, SELFPAY ==
--- NOTE | 2022-12-09 | FLU_PTH ---
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 U#:[id number] AGE/SX: 37/F ROOM: RE12/09/[address]: Dr. Anastacio Alcala MD : 1985 BED: DIS: 12/09/2022 SPEC #: [id number] RECD: 12/09/22 17:03 STATUS: BRYAN CHICA #: [id number] THA: 12/09/22 00:[address]: Anastacio Alcala DEPT: CYTOLOGY RECD BY: Sandeep Henry ENTERED: 12/12/22 09:28 SP TYPE: Fluid OTHR DR: Dr. More Denson MD Tissues: A - Thyroid gland, NOS B - Thyroid gland, NOS C - Thyroid gland, NOS D - Thyroid gland, NOS Procedures: Special Stain Group II Surgery Specimen Level IV Cytospin Fluid HEADER OPERATION: Fine needle aspiration, isthmic and left mid pole thyroid nodule PRE-OP DIAGNOSIS: Left mid pole and isthmic nodule TISSUE SUBMITTED: A - FNA left thyroid nodule fluid, B - FNA left thyroid nodule x4 slides, C - FNA isthmic nodule fluid, D - FNA isthmic nodule x4 slides DIAGNOSIS CYTOLOGY A. Fine needle aspiration, left thyroid nodule (cytospin and cell block): Papillary thyroid carcinoma ([place] Category ). See comment. B. Fine needle aspiration, left thyroid nodule (smears): Papillary thyroid carcinoma ([place] Category ). See comment. C. Fine needle aspiration, isthmic nodule (cytospin and cell block): Papillary thyroid carcinoma ([place] Category ). See comment. D. Fine needle aspiration, isthmic nodule (smears): Papillary thyroid carcinoma ([place] Category ). See comment. AM:juana 12/13/2022 COMMENT A. Multi-gene next-generation sequencing panel ([facility]) is recommended for this lesion. This recommendation was communicated to the physician's office. The [place] System for thyroid diagnostic categorization was used in the evaluation of this case. CYTOLOGY STUDY Slides are reviewed. CYTOLOGY GROSS A - Received is 20 ml of red cloudy fluid labeled with the patient's name and and designated per the requisition as left thyroid nodule. Submitted for cytology preparation including cell block. B - Received are four smears labeled with the patient's name and designated per the requisition as left thyroid nodule. Submitted for staining. C - Received is 50 ml of red cloudy fluid labeled with the patient's name and and designated per the requisition as isthmic nodule. Submitted for cytology preparation including cell block. D - Received are four smears labeled with the patient's name and designated per the requisition as isthmic nodule. Submitted for staining. / juana 12/12/2022 TC:0 CPT: 24213 x6, 09663 x3
== END | disposition home or self-care (01) ==
PROVIDERS: PCP Internal Medicine; Visit Provider Surgery
DX: C73 Malignant neoplasm of thyroid gland (principal)
CPT/HCPCS: 88108; 88305; 88313

== ENCOUNTER → 2022-12-16 | Outpatient (CLI) | payer MEDICAID, SELFPAY ==
--- NOTE | 2022-12-16 12:24 | US_ITS ---
INDICATION: thryoid cancer -- looking for lymph node mets EXAMINATION: Ultrasound US Head/Neck Soft Tissue TECHNIQUE: Perkins scale and color doppler imaging was performed of the thyroid gland. COMPARISON: Prior study dated: 11/23/2022 FINDINGS: Left: There are 2.3 x 1.0 x 1.4 cm and 1.3 x 1.0 x 1.0 cm level Ib lymph nodes. There is a 1.0 x 0.5 x 0.4 cm zone 3 lymph node. There is a 0.9 x 0.5 x 0.3 cm zone 3 lymph node. Right: There is a 1.1 x 0.9 x 0.8 cm zone Ib lymph node. There are 1.6 x 1.3 x 0.5 cm and 1.4 x 0.4 x 1.3 cm zone 2 lymph nodes. US/Head/Neck Soft Tissue IMPRESSION: * Prominent left level Ib lymph node measuring 1.0 cm short axis. This lymph node would be amenable to ultrasound-guided FNA. * There is a borderline enlarged level 1B lymph node measuring 1.0 cm short axis with 0.4 cm cortex. Attention on follow-up. * There are additional lymph nodes not meeting size criteria for pathologic enlargement. Electronically Signed: Elie Brown MD at 16:33 EDT ,
== END | disposition home or self-care (01) ==
LOC: US 12:18
PROVIDERS: PCP Internal Medicine; Referring Provider Internal Medicine; Visit Provider Surgery
DX: C73 Malignant neoplasm of thyroid gland (principal)
CPT/HCPCS: 76536

== ENCOUNTER → 2022-12-28 | Outpatient (CLI) | payer MEDICAID, SELFPAY ==
--- NOTE | 2022-12-27 11:00 | FLU_PTH ---
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 Anastacio Alcala MD : 1985 BED: DIS: 12/28/2022 SPEC #: [id number] RECD: 12/28/22 12:34 STATUS: BRYAN RETasia #: [id number] THA: 12/27/22 11:[address]: Anastacio Alcala DEPT: CYTOLOGY RECD BY: Brittany Ramirez ENTERED: 12/29/22 06:08 SP TYPE: Fluid OTHR DR: Dr. More Denson MD Tissues: A - Lymph node, NOS B - Lymph node, NOS Procedures: Special Stain Group II Surgery Specimen Level IV Cytospin Fluid Cytology Other HEADER OPERATION: Fine needle aspiration left lymph node PRE-OP DIAGNOSIS: Left lymph node TISSUE SUBMITTED: A - Left lymph node fluid, B - Left lymph node x4 slides DIAGNOSIS CYTOLOGY A. Left lymph node fluid, fine needle aspiration (cytospin and cell block): Negative for malignant cells. See comment. B. Left lymph node, fine needle aspiration (smears): Negative for malignant cells. See comment. TIEN:juana 12/29/2022 COMMENT A & B. The specimens consist of predominantly small lymphocytes. Please make reference to previous specimen ([id number]) FNA, left thyroid nodule, FNA, isthmic nodule, FNA with diagnosis of papillary thyroid carcinoma. Correlation with clinical, radiologic findings and appropriate follow up are necessary. Case has been reviewed in consultation with Dr. Quick who concurs with the above diagnosis. IDC:AM CYTOLOGY STUDY Slides are reviewed. CYTOLOGY GROSS A - Received is 30 ml of red fluid labeled with the patient's name and and designated per the requisition as left lymph node. Submitted for cytology preparation including cell block. B - Received are four smears labeled with the patient's name and designated per the requisition as left lymph node. Submitted for staining. / juana 12/28/2022 TC:5 CPT: 61656 x2, 74396
== END | disposition home or self-care (01) ==
LOC: LABSPEC 12:49
PROVIDERS: PCP Internal Medicine; Referring Provider Surgery; Visit Provider Surgery
DX: R59.0 Localized enlarged lymph nodes (principal)
CPT/HCPCS: 88108; 88161; 88305; 88313

== ENCOUNTER → 2023-01-09 | Outpatient (CLI) | payer MEDICAID, SELFPAY ==
[2023-01-09 08:31] LABS: Mucous, Urine 0 SEEN /hpf (<or=2+)
[2023-01-09 12:31] LABS: Color, Urine Yellow (Yellow); Glucose, Dipstick Normal (Normal); Ketone-Dipstick Negative (Negative); Leukocyte Esterase-Dipstick 25 /ul (Negative); Nitrite-Dipstick Negative (Negative); Occult Blood-Urine 10 /ul (Negative); Protein-Dipstick Negative (Negative); Urine Bilirubin Dipstick Negative (Negative); Urine Clarity Sl. Cloudy (Clear); Urine Urobilinogen Normal (Normal); Urine pH 6.5 (5.0 - 8.0)
[2023-01-09 12:39] LABS: Bacteria 1+ /hpf (None Seen); Red Blood Cells-Urine 0-5 SEEN /hpf (0-5); Squamous Epithelial Cells - UA 0-5 SEEN /hpf (5-10); White Blood Cells 0-5 SEEN /hpf (0-5)
== END | disposition home or self-care (01) ==
LOC: LABSPEC 08:21
PROVIDERS: PCP Internal Medicine; Referring Provider Internal Medicine; Visit Provider Internal Medicine
DX: R30.0 Dysuria (principal)
CPT/HCPCS: 81001; 87086; 87088

== ENCOUNTER 2023-02-10 11:22 | Observation (INO) | payer MEDICAID, SELFPAY ==
[2023-02-10] VITALS (14 sets, daily range): BP systolic 86–135; BP diastolic 57–89; PULSE 90–126; RESP 14–20; TEMP 36.5–37.3; O2SAT 92–98; BMI 26.9
--- NOTE | 2023-02-10 | IMM_PTH ---
PATIENT: AMBER BARRETT LOC: [facility] U#:[id number] AGE/SX: 37/F ROOM: MA318 RE02/10/[address]: Dr. Anastacio Alcala MD : 1985 BED: 1 DIS: 02/11/2023 SPEC #: [id number] RECD: 02/13/23 14:17 STATUS: BRYAN REQ #: [id number] THA: 02/10/23 00:[address]: Anastacio Alcala DEPT: IMMUNOHISTOCHEMISTRY RECD BY: Lori Lopez ENTERED: 02/13/23 14:19 SP TYPE: IMMUNO OTHR DR: Dr. More Denson MD Tissues: Thyroid gland, NOS Procedures: HBME (initial) CD56 (add) CK19 (add) GAL-3 (add) HBME (add) PHYSICIAN & INSTITUTION [place] [id number] SPECIMEN INFORMATION: Tissue Source: Thyroid Clinical Info: Thyroid cancer, left cervical lymphadenopathy Specimen Number: [id number] #1, 4 & 7 CPT code: 14736, 22572 x12 METHODOLOGY: Deparaffinized sections of prefer/formalin-fixed tissue or PAP/DQ stained slides are incubated with monoclonal/polyclonal antibodies/oligonucleotide probes. Localization is made via biotin free immunoperoxidase method. Appropriate controls are performed and reacted as expected. Results on target cell population are indicated in the following table: RESULTS: ANTIBODY / CLONE RESULT Block 1 HBME1 (HBME-1) positive CK19 (A53-B/A2.26) positive GAL3 (9C4) negative CD56 (123C3.D5) positive Block 4 HBME1 (HBME-1) positive CK19 (A53-B/A2.26) positive GAL3 (9C4) positive CD56 (123C3.D5) negative Block 7 HBME1 (HBME-1) positive CK19 (A53-B/A2.26) positive GAL3 (9C4) positive CD56 (123C3.D5) negative These tests were developed and their performance characteristics determined by [facility]. They may not have been cleared or approved by the [place]. Food and Drug Administration. The FDA has determined that such clearance or approval is not necessary. The above immunohistochemical/dualISH markers are ordered and reviewed by the Pathologist. INTERPRETATION: Thyroid, total thyroidectomy: Papillary thyroid carcinoma (block 4 & 7). Adenomatoid nodules (block 1). Juan 02/14/2023 Case has been reviewed in consultation with Dr. Quick who concurs with the above diagnosis. IDC:AM
[2023-02-10 06:33] LABS: Internal QC Validated? YES +Cl - CLEAR BKGD; Pregnancy, Urine Negative Negative
[2023-02-10] MEDS: Lactated Ringers 1,000 ML 15 ML IV ×2 (07:01→11:10)
--- NOTE | 2023-02-10 07:01 | PCM.HP.BLA ---
History and Physical Date of Admission: 02/10/23 Date of Service: 12/28/22 MR#: [id number] Acct: [id number] Name: AMBER BARRETT Rep #: [id number] : 1985 Provider: Dr. Anastacio Alcala MD Age/Sex: 37/F Location: [facility] Status: Signed Intake Vital Signs 12/10/2307:45 Height 5 ft 4 in Weight: 156 lb BMI 26.7 BP 137/91 H Blood Pressure Location Lt brachial Position Sitting Respiration 17 Pulse 101 H Pulse Source Monitor Temp 97.5 F L Temp Source Temporal Pulse Oximetry (%) 100 Oxygen Delivery Method room air Intake Visit Reasons: REVIEW THYROID U/S Chief Complaint: thyroid nodules Allergies amoxicillin Allergy (Verified 12/28/22 10:43) Othersulfamethoxazole [From Bactrim] Allergy (Verified 12/28/22 10:43) OtherCorticosteroids (Glucocorticoids) Adverse Reaction (Mild, Verified 12/28/22 10:43) ANXIETYQuinolones Adverse Reaction (Mild, Verified 12/28/22 10:43) FATIGUE Medications coenzyme Q10 10 mg capsule 10 mg PO DAILY #30 caps 11/18/21 [Rx Confirmed 12/28/22] ferrous sulfate 325 mg (65 mg iron) tablet (Feosol) 325 mg PO DAILY 11/18/21 [History Confirmed 12/28/22] ascorbic acid (vitamin C) 1,000 mg tablet 1 g PO DAILY #30 tabs 03/02/22 [Rx Confirmed 12/28/22] Lactobacillus acidophilus-Bifidobac.animalis 15.5 billion cell capsule (Zelac) 1 cap PO DAILY #30 caps 03/23/22 [Rx Confirmed 12/28/22] transparent dressings 4 X 4 3/4 #50 ea 03/31/22 [Rx Confirmed 12/28/22] atomoxetine 40 mg capsule (Strattera) 40 mg PO BID 04/19/22 [History Confirmed 12/28/22] hydroxyzine HCl 50 mg tablet 50 mg PO QHS 04/19/22 [History Confirmed 12/28/22] lurasidone 80 mg tablet (Latuda) 80 mg PO DAILY 04/19/22 [History Confirmed 12/28/22] guaifenesin 600 mg tablet, extended release 12 hr 600 mg PO Q12H PRN cough #20 tabs 05/02/22 [Rx Confirmed 12/28/22] fluticasone propionate 50 mcg/actuation nasal spray,suspension (Flonase Allergy Relief) 1 spray intranasal QHS #16 grams 05/05/22 [Rx Confirmed 12/28/22] paroxetine HCl 37.5 mg tablet,extended release 24 hr (Paxil CR) 25 mg PO DAILY 06/02/22 [History Confirmed 12/28/22] methylcellulose (laxative) 500 mg tablet (Fiber Laxative (methylcellulose)) 500 mg PO DAILY #30 tabs 07/11/22 [Rx Confirmed 12/28/22] lactic acid 1.8 %-citric ac 1 %-potassium bitartate 0.4 % vaginal gel (Phexxi) 1 appful vaginal PER PKG DIR #60 grams 07/14/22 [Rx Confirmed 12/28/22] calcium carbonate 200 mg calcium (500 mg) chewable tablet (Antacid (calcium carbonate)) 200 mg PO BID PRN dyspepsia #60 tabs 09/05/22 [Rx Confirmed 12/28/22] multivitamin with minerals-folic acid 200 mcg chewable tablet (Women's Multivitamin Gummies) 1 tab PO DAILY #30 tabs 09/07/22 [Rx Confirmed 12/28/22] phenazopyridine 100 mg tablet (Pyridium) 100 mg PO TID #14 tabs 09/14/22 [Rx Confirmed 12/28/22] fluconazole 150 mg tablet (Diflucan) 150 mg PO DAILY #1 TAB 10/01/22 [Rx Confirmed 12/28/22] metronidazole 500 mg tablet 500 mg PO BID 7 days #14 tabs 10/01/22 [Rx Confirmed 12/28/22] omeprazole 20 mg capsule,delayed release 20 mg PO BID #60 caps 11/08/22 [Rx Confirmed 12/28/22] carbamazepine 400 mg tablet,extended release,12 hr (Tegretol XR) 200 mg PO TID 11/09/22 [History Confirmed 12/28/22] syhoxobpgn-QP-ckkkpdylqacbr 6.25 mg-15 mg-325 mg capsule (Nighttime Cold-Flu) 1 cap PO QHS PRN cold symptoms #10 caps 11/09/22 [Rx Confirmed 12/28/22] dexamethasone 1 mg tablet 1 mg PO ONCE #1 TAB 11/29/22 [Rx Confirmed 12/28/22] promethazine 12.5 mg tablet 12.5 mg PO TID PRN nausea and vomiting #90 tabs 12/05/22 [Rx Confirmed 12/28/22] acetaminophen 500 mg capsule 1,000 mg (2 x 500 mg) PO BID PRN pain #120 caps 12/20/22 [Rx Confirmed 12/28/22] nicotine 7 mg/24 hr daily transdermal patch 1 patch transdermal DAILY #14 ea 12/26/22 [Rx Confirmed 12/28/22] PFSH Medical History Hx of carpal tunnel syndrome Hx of gallstones Hx of gastroesophageal reflux (GERD) Hx of osteoarthritis Left wrist pain Thyroid cancer Unspecified mood [affective] disorder Surgical History History of carpal tunnel release Hx of cholecystectomy Family History Grandmother ArthritisMother Multiple sclerosis Social History household members: children housing: apartment current occupational status: unemployed sexually active: No Smoking Status: Former smoker Electronic Cigarette Use: not used alcohol intake: never substance use type: does not use what type of physical activity do you participate in: none seatbelt use: always do you feel safe at home: Yes Female Reproductive History Menstrual Ab induced: 1 HPI HPI HPI: Patient is a 37-year-old female who presents for evaluation of newly diagnosed thyroid nodules and diagnosis of thyroid cancer after initial consultation visit 12/09/2022. They are referred for surgical consultation from Dr. Denson. In the interim patient completed a soft tissue ultrasound at my request for lymph node mapping purposes and I telephoned her the results that show a prominent level 1B lymph node on the left side which radiology recommended for biopsy. Following patient's last biopsy she had some significant tenderness, but states that this improved with time. She denies any other health issues but complains of progressive fatigue and declares that she would like her thyroid dealt with this soon as possible. Below is recapitulated from patient's initial consultation visit for ease of review: This was discovered incidentally for work-up of chronic pain during a cervical MRI and was followed up formally with thyroid ultrasound. She does remark of some awareness of a enlarged lymph node in her left upper neck and confirms some recent upper respiratory tract infections. They do not experience difficulty with swallowing. They do not complain of a new cough. They do not appreciate new voice changes. They do not have a history of snoring/sleep apnea. Additionally, their weight has been slightly increasing, but they readily admit to eating more as they are trying to deal with the stress of the recent relationship break-up. There is a history of recent fatigue which patient describes as terrible. She states this has been attributed to her diagnosis of fibromyalgia and she also attributes the role to her ingestion of sugar which leaves her feeling poorly. They do have a history of both heat and cold intolerance which she states seems to be somewhat new as of the last couple months. Other symptoms include: Some sweating that seems to go along with her heat intolerance and she questions may be related to some of her psych medications. They do not have a family history of thyroid disorders or endocrinopathies. There is no history of prior radiation exposure. Previous work-up has included thyroid ultrasound. This study was performed on 11/23/2022 and showed a right thyroid lobe measuring 4.9 x 1.7 x 1.9 cm. Within this lobe radiology identified a nodule measuring 1.6 cm in greatest dimension and was rated a TI-RADS 5 highly suspicious. The left thyroid lobe measured 4.6 x 1.9 x 1.7 cm. Within this lobe radiology identified multiple subcentimeter nodules generally rated TI-RADS 3 or 4. An FNA has not been performed. Other tests include: [TSH, T3, T4,etc ] Exam Const General: cooperative and anxious Orientation: alert, awake and oriented x3 Neck Other: Patient with stable neck exam on palpation. With ultrasound I identify patient's prominent left level 1B lymph node, however, the dimensions on the structure are somewhat smaller than that obtained with radiology. Still in the sonographic picture appeared indisputable based on the features of the lymph node as well as the surrounding anatomy. Office Procedures Fine Needle Aspiration Provider Documentation Details: Indication: Left suspicious cervical lymph node (level 1B) After obtaining patient consent and conducting a timeout amongst those present, the procedure was commenced by locating the suspicious node in the submandibular region of the left upper neck using ultrasound. Careful planning was made as patient's lymph node was flanked on both sides by vascular structures as confirmed by color Doppler. Superficially, the skin was cleaned with an alcohol swab and a wheal of local anesthetic was created after instilling 2 ml 1% lidocaine. Then, under ultrasound guidance, multiple passes were made into the lymph node using a 25-gauge needle. Once an adequate specimen was detected within the hub of the needle and bottom of the syringe, this was handed off the field. A second pass was made in a similar manner using a 22-gauge needle. This specimen, also, was passed off the field for cytopathologic evaluation. External pressure was applied to the neck to assist with hemostasis. A quick examination was made with ultrasound to exclude any evidence of extravasation or hematoma formation. Then the surface of the neck was cleaned, dried, and a bandage was applied. Patient was gradually returned to the sitting position and after short period of monitoring was dismissed. Wound care instructions and expectations regarding pathologic processing were discussed prior to dismissal. 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 Soft tissue ultrasound was obtained for lymph node mapping purposes and radiology identified a prominent 2.3 cm level 1B lymph node on the left. I shared with patient that this would seem to be highly atypical and considered a skip metastasis given that radiology did not identify anything suspicious for levels 2 through 4 or level 6. It was also patient's left-sided nodule that was smaller of the 2 nodules identified and biopsied at the last visit. She does have a recent history of some upper respiratory illness and flu. In my independent review of patient's imaging the lymph node in question has an oblong appearance with a fatty hilum, but since radiology indicated that they had a suspicion for this lymph node and patient was recently diagnosed with thyroid cancer, I did recommend proceeding with biopsy of this lymph node using an FNA technique. Patient was receptive of this recommendation and the procedure proceeded in an uncomplicated fashion during today's visit. Additionally, I took some time to describe the procedure for a total thyroidectomy and the procedure?specific risks of recurrent laryngeal nerve injury and postoperative hypoparathyroidism. This discussion was facilitated by hand drawings of these structures. Lastly, I did share with patient that if her lymph node or to return is positive then I would recommend referral to a tertiary facility that routinely performs lateral and more complex neck dissections. She expressed understanding of all this information and simply states she wishes to be underway as soon as possible. Plan: Follow-up cytopathology for lymph node biopsy below for final treatment plans are made (2) Left cervical lymphadenopathy: Status: Acute Comment: Patient with prominent left level 1B which radiology marked for consideration of biopsy on recent soft tissue ultrasound. They also noted a nearby lymph node with a prominent cortical layer but did not recommend biopsy. Both of these lymph nodes were identified in my independent ultrasound exam, however, the final dimensions of the former lesion did not exactly match those obtained by radiology. Still, I was confident in the identification of this node based on the leak sonographic features of the lymph node as well as the surrounding anatomy and extended the recommendation to pursue biopsy to the patient and patient consented. Thus the procedure was undertaken in uncomplicated fashion during today's visit. As above, patient is aware that if this ends up being positive I will recommend referral to a tertiary center routinely doing neck dissections, however, if negative I would look for an expeditious route to the operating room for total thyroidectomy with intraoperative nerve monitoring. Plan: Follow-up cytopathology and discuss implications with patient once resulted I have examined the patient and the H&P has been reviewed. There are no clinical changes since date of exam. Procedure and post procedure expectations were reviewed. Specifically we discussed needing to provide her with a couple of short prescriptions for thyroid hormone and supplemental calcium. Otherwise Ms. Barrett denies any questions related today's procedure. Consents were signed. Will plan to proceed to the operating room for total thyroidectomy with indication multifocal papillary thyroid carcinoma.
--- NOTE | 2023-02-10 07:30 | THYROID_PTH ---
PATIENT: AMBER BARRETT LOC: [facility] U#:[id number] AGE/SX: 37/F ROOM: IA318 RE02/10/[address]: Dr. Anastacio Alcala MD : 1985 BED: 1 DIS: 02/11/2023 SPEC #: [id number] RECD: 02/10/23 11:37 STATUS: BRYAN RETasia #: [id number] THA: 02/10/23 07:[address]: Anastacio Alcala DEPT: SURGICAL PATHOLOGY RECD BY: Natasha Muhammad ENTERED: 02/10/23 12:26 SP TYPE: THYROID OTHR DR: Dr. More Denson MD Tissues: Thyroid gland, NOS Procedures: Surgery Specimen Level V HEADER OPERATION: Thyroidectomy with IONM PRE-OP DIAGNOSIS: Thyroid cancer, left cervical lymphadenopathy TISSUE SUBMITTED: Thyroid - stitch kolb right superior pole MICROSCOPIC DIAGNOSIS Thyroid, total thyroidectomy: Papillary thyroid carcinoma x2. See cancer summary in the comment section. SJ:juana 02/13/2023 COMMENT THYROID CANCER SUMMARY Procedure: Total thyroidectomy Tumor Focality: Multifocal Tumor Site: left lobe and isthmus Tumor Size: Isthmus 1.5 x 1.0 cm left lobe and 0.7 cm in greatest dimension (measured microscopically). Histologic Type: Isthmus: Papillary carcinoma, classic (usual, conventional) Left lobe: Papillary carcinoma, mixed papillary and follicular variant. Margins: Margins are uninvolved by invasive carcinoma. Angioinvasion: Not identified Lymphatic Invasion: Not identified Perineural Invasion: Not identified Extrathyroidal Extension: Not identified Regional Lymph Nodes: No lymph nodes submitted or found. Ancillary Studies: Please see IHC ([id number]) Additional Pathologic Findings: - Multinodular goiter with adenomatoid nodules and with focal calcifications. - Chronic inflammation. Clinical History: Please make reference to previous specimens ([id number]) FNA, left thyroid nodule and FNA, isthmic nodule with diagnosis of papillary thyroid carcinoma and ([id number]) left lymph node fluid, FNA with diagnosis of negative for malignant cells. PATHOLOGIC STAGE: pT1b(m) pNx pMx The above summary is in compliance with [employer] [place] [employer] (CAP) Cancer Protocols Checklist and [place] [employer] Committee on Cancer (AJCC), Staging Manual, 8th Ed. . Case has been reviewed in consultation with Dr. Quick who concurs with the above diagnosis. IDC:AM MICROSCOPIC DESCRIPTION Slides are reviewed. GROSS DESCRIPTION Received in fixative is one container labeled with the patient's name and designated thyroid. The specimen consists of a thyroidectomy specimen weighing 16 gm. The right lobe measures 4.5 x 3.0 x 1.2 cm. The isthmus measures 2.0 x 1.5 x 1.0 cm. The left lobe measures 4.3 x 2.0 x 1.3 cm. The specimen is differentially inked as follows: right lobe - blue, left lobe - green, isthmus - red and entire posterior surface of the gland - black. Serial sections of the right lobe reveal a single white-schulz nodule measuring 0.3 cm in greatest dimension. Serial sections of the left lobe reveal a light schulz-white nodule measuring 0.6 cm in greatest dimension. Serial sections of isthmus reveal schulz nodule measuring 1.0 cm in the greatest dimension. The remainder of the cut surfaces of the thyroid gland reveal a beefy, red cut appearance. The specimen is totally submitted in ten cassettes as follows: 1-4 - right lobe with right lobe nodule represented in cassette 1, 5 & 6 - isthmus with isthmic nodule represented in cassette 5, 710??left lobe of thyroid with left lobe nodule represented in cassette 7. / AM:juana 02/10/2023 TC:0 [facility]: [id number]
[2023-02-10] MEDS: Bupivacaine 0.25% 30 ML Vial (11:05)
--- NOTE | 2023-02-10 11:16 | OP.PCM_ITS ---
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 Post-Operative Diagnosis: Same Surgery/Procedure Performed:: Total thyroidectomy with intraoperative nerve monitoring Description of Surgical Findings:: - grossly-intact right inferior, and left superior and inferior parathyroid glands - visually and audibly-intact recurrent laryngeal nerves bilaterally Surgeon: Anastacio Alcala affiliate manager: Zion Montenegro Type of Anesthesia: General/Supplemental Anesthesiologist: Andres Espinosa Specimen's removed: Total thyroid with stitch marking right superior pole Estimated Blood Loss (mL): 20 Description of Procedure: After appropriate identification in the preoperative holding area, the patient was brought to the operating room where she was positioned supine with arms tucked taking care to pad the ulnar nerve bilaterally. Induction of general endotracheal anesthetic was begun and a NIMS tube was placed under glidescope view to confirm coaptation with the vocal cords anteriorly. Tube was then secured and the patient was positioned with a shoulder roll so that her head was in extension but supported. The Nims electrodes were placed and connected to the monitor. We had appropriate resistance showing on the monitor and tapping at the level of the cricoid produce a graphical representation of the impulse on the monitor. Patient's neck was then prepped and draped in usual sterile fashion and a formal timeout was conducted with those present. The lowest skin fold to the sternal notch was selected for incision site (this resided approximately 2.5 fingerbreadths cephalad to the notch). Local anesthetic was instilled and a incision was extended for 2 cm on either side of midline. Electrocautery was used to deepen this incision through the level of the platysma. Subplatysmal flaps were raised with the use of electrocautery and blunt dissection. The strap muscles were then divided along the medial raphe bringing us down to the level of the thyroid. Capsular attachments to the thyroid were divided with the use of LigaSure or bluntly dissected. Retractors were placed providing visualization of the superior pole of the right lobe of the thyroid. The vessels of the superior pole were sequentially ligated with the use of the LigaSure device. As we moved towards the thyroid gland away from the pole vessels, we remained vigilant for, but did not visualize the superior parathyroid gland. We then moved inferiorly and divided those polar vessels with LigaSure. Here the patient's cancer was rather obvious as it appeared like a firm whitish nodule in the lower pole. Some of the strap muscles remained adherent to the capsule and given the patient's diagnosis I elected to leave these adherent rather than try to tease them away with dissection. These fibers were divided with the use of LigaSure. The inferior parathyroid gland was grossly visualized and preserved with division of the inferior pole vessels. With the poles freed, the thyroid was mobilized medially by bluntly the remaining strap muscle fibers from the thyroid capsule and using LigaSure to divide the middle thyroid vein. Blunt dissection parallel to the presumed course of the recurrent laryngeal nerve was used to expose the tracheoesophageal groove. Here I encountered a positive signal for the right recurrent laryngeal nerve. However, I was not able to readily visualize the nerve secondary to a number of small vessels in the region of the ligament of Purcell as well as some fibrofatty tissue that appear to be covering the nerve. I made several attempts at trying to gently, bluntly dissect within this fibrofatty tissue, but the proximity to the abundant minute vasculature led to oozing that interfered with visualization. Therefore I resolved to simply map the course of the nerve with our monitor/probe and then dissect the thyroid attachments to the trachea, inferiorly, and the thyroid cartilage, superiorly, so that the thyroid remained attached only in the region of the nerves insertion within the cricothyroid joint. I then determine the maximal anterior extent of the nerve signal and was able to dissect several attachments of the thyroid to the thyroid cartilage and placed these within a 4-0 silk ligature. After tying this ligature the nerve signal was rechecked and found to be intact. Therefore the tissue was sharply divided. Once the right thyroid lobe was elevated at least 2 to 3 mm anterior to the insertion point, electrocautery was used to remove the isthmus from the anterior surface of the trachea. There was a slight cephalad extension of what appeared to be a small pyramidal lobe when the isthmus was examined superiorly so this was dissected from the anterior surface of the thyroid cartilage using electrocautery and divided with LigaSure. We then moved to removal of the left thyroid lobe with a similar technique taking care to remove the strap muscles from their capsular attachments to the lobe. The superior pole vessels were taken in like fashion with use of LigaSure energy. The inferior pole vessels and middle thyroid vein were also divided in this fashion. Along the posterior aspect of the superior pole there was some adherent adipose tissue and a schulz structure that appeared to represent the left superior pole parathyroid. Based on this gross identification, this packet of tissue-including the parathyroid was removed from the superior pole capsule with fine blunt dissection. The parathyroid appeared well vascularized following the separation. As the thyroid was medialized and removed from the surgical bed, vasa nervosa were seen along recurrent laryngeal nerve and it provided us with an excellent signal on our nerve monitor. Additional fine blunt dissection was used to remove the remaining thyroid attachments to the trachea at the ligament of Purcell and this thyroid tissue was divided with the use of LigaSure energy device. Again, once we were 2 to 3 mm away from the area of the nerve insertion, the gland was removed from the trachea with the use of electrocautery. Our final specimen was marked with a 3-0 Vicryl stitch through the right upper pole. It was inspected for any inadvertent inclusion of parathyroid tissue, but finding none, it was passed off the field for pathologic processing. Both surgical cavities were inspected for hemostasis. Closer to the nerve on the left there was some additional oozing and Surgicel hemostatic agent was placed bilaterally while pressure was applied. Once this pressure was relieved, the surgical cavity was again inspected and still there was bleeding so I carefully traced the course of the nerve and was able to confirm that its insertion point was disparate enough from the source of bleeding to apply a second silk ligature which was done using a fine right angle clamp. With this complete we found hemostasis to be intact. Additionally, I confirmed that the right recurrent laryngeal nerve was visually and audibly intact with our monitor. I grossly confirmed the presence of a right inferior, left inferior, and left superior parathyroid gland. Small swatches of Surgicel were left adjacent the trachea bilaterally. Satisfied with this result, the strap muscles were closed with a running 3-0 Vicryl stitch leaving a small gap at the inferior aspect of the suture line. The platysmal flaps were closed with interrupted 3-0 Vicryl. Some additional local anesthetic was infiltrated throughout the dermis and the skin was closed in a subcuticular fashion using 4-0 Monocryl. Steri-Strips were applied. Telfa and Tegaderm were used as a dressing. The patient was then awakened from anesthetic without event and was taken to PACU for ongoing recovery. Complications none Admit VTE Documentation VTE Mechan Device Prophylaxis: SCD's Procedures Endocrine CF Procedures [id number]: [id number] Removal of thyroid
[2023-02-10 12:20] LABS: PTHIN 65.4 pg/mL (18.4-80.1)
[2023-02-10] MEDS: 0.9% Normal Saline (1000mL) 1,000 ML 125 ML IV ×2 (14:08→21:43)
[2023-02-10] MEDS: Acetaminophen 500 MG Tablet PO ×2 (14:11→22:09)
[2023-02-10] MEDS: Calcium Carb/Vitamin D 1 TABLET Tablet PO ×2 (14:12→16:22)
[2023-02-10] MEDS: BENZOCAINE/MENTHOL 1 LOZENGE MUCOUS MEM (14:15)
[2023-02-10] MEDS: HYDROmorphone 0.5 MG/0.5 ML SYRINGE IV ×2 (16:22→21:40)
[2023-02-10] MEDS: Ketorolac 15 MG/ML Vial IV (17:35)
[2023-02-10] MEDS: carBAMazepine 200 MG TAB.SR.12H PO (21:42)
[2023-02-10] MEDS: hydrOXYzine PAM 25 MG Capsule 50 MG PO (21:43)
[2023-02-10] MEDS: Fluticasone 0.05% 1 SPRAY NASAL.SRY NASAL (21:46)
[2023-02-10] MEDS: ATOMOXETINE HCL 40 MG CAPSULE PO (21:48)
[2023-02-10] MEDS: Ondansetron 4 MG/2 ML Vial IV (22:08)
[2023-02-10] MEDS: MELATONIN 10 MG TABLET PO (22:09)
[2023-02-10] MEDS: Mirtazapine 15 MG Tablet PO (22:09)
[2023-02-10] MEDS: Omeprazole 20 MG Capsule PO (22:10)
[2023-02-10] MEDS: LURASIDONE HCL 60 MG TABLET PO (22:22)
[2023-02-11 02:59] VITALS: BP 110/71; PULSE 98; RESP 16; TEMP 36.9; O2SAT 98
[2023-02-11] MEDS: HYDROmorphone 0.5 MG/0.5 ML SYRINGE IV ×2 (03:02→06:12)
[2023-02-11] MEDS: BENZOCAINE/MENTHOL 1 LOZENGE MUCOUS MEM (03:03)
[2023-02-11] MEDS: Levothyroxine 112 MCG Tablet PO (05:53)
[2023-02-11] MEDS: 0.9% Normal Saline (1000mL) 1,000 ML 125 ML IV (05:53)
[2023-02-11] MEDS: Acetaminophen 500 MG Tablet PO (05:53)
[2023-02-11 05:57] VITALS: BP 111/74; PULSE 99; RESP 18; TEMP 36.9; O2SAT 92
--- NOTE | 2023-02-11 08:21 | DS.PCM_ITS ---
Providers Date of Admission: 02/10/23 Primary Care Physician: Dr. More Denson MD Reason For Visit: Thyroidectomy with IONM Medications at Discharge Home Medications coenzyme Q10 10 mg capsule 10 mg PO DAILY #30 caps 11/18/21 ferrous sulfate 325 mg (65 mg iron) tablet (Feosol) 325 mg PO DAILY 11/18/21 ascorbic acid (vitamin C) 1,000 mg tablet 1 g PO DAILY #30 tabs 03/02/22 Lactobacillus acidophilus-Bifidobac.animalis 15.5 billion cell capsule (Zelac) 1 cap PO DAILY #30 caps 03/23/22 atomoxetine 40 mg capsule (Strattera) 40 mg PO BID 04/19/22 hydroxyzine HCl 50 mg tablet 50 mg PO QHS 04/19/22 lurasidone 80 mg tablet (Latuda) 60 mg PO DAILY 04/19/22 guaifenesin 600 mg tablet, extended release 12 hr 600 mg PO Q12H PRN cough #20 tabs 05/02/22 fluticasone propionate 50 mcg/actuation nasal spray,suspension (Flonase Allergy Relief) 1 spray intranasal QHS #16 grams 05/05/22 paroxetine HCl 37.5 mg tablet,extended release 24 hr (Paxil CR) 25 mg PO DAILY 06/02/22 lactic acid 1.8 %-citric ac 1 %-potassium bitartate 0.4 % vaginal gel (Phexxi) 1 appful vaginal PER PKG DIR #60 grams 07/14/22 calcium carbonate 200 mg calcium (500 mg) chewable tablet (Antacid (calcium carbonate)) 200 mg PO BID PRN dyspepsia #60 tabs 09/05/22 multivitamin with minerals-folic acid 200 mcg chewable tablet (Women's Multivitamin Gummies) 1 tab PO DAILY #30 tabs 09/07/22 fluconazole 150 mg tablet (Diflucan) 150 mg PO DAILY #1 TAB 10/01/22 omeprazole 20 mg capsule,delayed release 20 mg PO BID #60 caps 11/08/22 carbamazepine 400 mg tablet,extended release,12 hr (Tegretol XR) 200 mg PO TID 11/09/22 dexamethasone 1 mg tablet 1 mg PO ONCE #1 TAB 11/29/22 lactobacillus combo #5 150 mg (2 billion cell) tablet,delayed release (Provella) 150 mg PO PRN 01/27/23 lamotrigine 100 mg tablet,extended release 24 hr (Lamictal XR) 100 mg PO DAILY 01/27/23 methylcellulose (laxative) 500 mg tablet (Fiber Laxative (methylcellulose)) 500 mg PO PRN 01/27/23 mirtazapine 15 mg tablet 15 mg PO QHS 01/27/23 naltrexone 50 mg tablet 50 mg PO BID 01/27/23 tizanidine 4 mg tablet 4 mg PO QHS 01/27/23 nicotine 7 mg/24 hr daily transdermal patch 1 patch transdermal DAILY #14 ea 01/30/23 melatonin 10 mg capsule 10 mg PO QHS 02/02/23 ondansetron 4 mg disintegrating tablet 4 mg PO 1500 nausea and vomiting 02/02/23 acetaminophen 500 mg capsule 1,000 mg (2 x 500 mg) PO BID PRN pain #120 caps 02/08/23 calcium carbonate 500 mg-vitamin D3 5 mcg (200 unit) tablet (Oyster Shell Calcium-Vitamin D3) 1 tab PO TIDCM 30 days #90 tabs 02/11/23 levothyroxine 112 mcg tablet 112 mcg PO DAILY 5 weeks #35 tabs 02/11/23 oxycodone 5 mg tablet 5 mg PO Q6H PRN PRN Pain Score 6-10 3 days #14 tabs 02/11/23 Hospital Course Operations - (Total thyroidectomy 15 Jul 2022) Summary of Care Provided Hospital Course: Patient is a 37-year-old female who was preoperatively diagnosed with multifocal papillary thyroid carcinoma and recommended total thyroidectomy. Procedure was undertaken in uncomplicated fashion on 02/10/2023. She was admitted routinely for observational stay and monitoring of her calcium. She had some difficulty with pain control postoperatively as well?likely owing to her pre-existing diagnoses and her pre-existing use of opioid antagonists for GI?related issues. Postoperative day 1 patient states that she has had some improvements in her somatic pain complaints and has done well with that and initial diet advance. She denies any evidence of paresthesias. Labs this morning demonstrate some hypocalcemia so we will continue her current calcium supplementation from home as well as add 1 tablet of Os-Demetrius 3 times daily. She is instructed to take a Tums if she experiences paresthesias at home and notify us immediately. She is also being counseled on the proper use of levothyroxine. Lastly, due to her persistent pain complaints we will prescribe a short course of oxycodone and patient is instructed to hold off her naltrexone use while she requires this additional pain medication. Additional instructions revolving around wound care and follow-up were reviewed. Patient expresses comfort with these instructions. Therefore she is discharged to home in improved condition on postoperative day 1. Physical Exam Const alert, oriented x3 and no apparent distress General Appearance: cooperative Neck Neck Narrative: Postoperative dressing is clean dry and intact. Wound is appropriate and liz- incisional soft tissues remain soft without evidence of underlying hematoma formation. Patient does have some tenderness with palpation. Weight / BMI Weight Weight: 157 lb 3.033 oz Body Mass Index (BMI) 26.9 ABG / Lab / Microbiology Data Laboratory: Laboratory Results - last 24 hr 02/10/23 11:33: PTH Intact 65.4 Meaningful Use Info Meaningful Use Diagnoses (Choose all that apply): None applicable Discharge Plan Admission Admit Date/Time: 02/10/23 11:22 Primary Reason for Your Visit: Thyroid cancer Attending Provider: Anastacio Alcala Primary Care Provider: More Denson Discharge Orders/Prescriptions Prescriptions: New calcium carbonate-vitamin D3 [Oyster Shell Calcium-Vit D3] 500 mg-5 mcg (200 unit) Tablet 1 tab PO TIDCM 30 Days Qty: 90 0RF levothyroxine 112 mcg Tablet 112 mcg PO DAILY 35 Days Qty: 35 0RF oxycodone 5 mg Tablet 5 mg PO Q6H PRN PRN (Reason: Pain Score 6-10) 3 Days Qty: 14 0RF Rx Instructions: remind pt to hold naltrexone while taking Continued ferrous sulfate [Feosol] 325 mg (65 mg iron) tablet 325 mg PO DAILY coenzyme Q10 10 mg capsule 10 mg PO DAILY Qty: 30 0RF ascorbic acid (vitamin C) 1,000 mg tablet 1 g PO DAILY Qty: 30 5RF atomoxetine [Strattera] 40 mg capsule 40 mg PO BID Patient Comments: Name Brand Only hydroxyzine HCl 50 mg tablet 50 mg PO QHS lurasidone [Latuda] 80 mg tablet 60 mg PO DAILY Patient Comments: Brand Name only Rx Instructions: must administer with food (at least 350 calories) paroxetine HCl [Paxil CR] 37.5 mg tablet extended release 24 hr 25 mg PO DAILY carbamazepine [Tegretol XR] 400 mg tablet extended release 12 hr 200 mg PO TID Patient Comments: Name Brand only fluticasone propionate [Flonase Allergy Relief] 50 mcg/actuation spray,suspension 1 spray intranasal QHS Qty: 16 0RF Rx Instructions: administer into each nostril lamotrigine [Lamictal XR] 100 mg tablet extended release 24hr 100 mg PO DAILY Patient Comments: Brand name only naltrexone 50 mg tablet 50 mg PO BID Patient Comments: Take 1 tablet by mouth twice a day tizanidine 4 mg tablet 4 mg PO QHS Patient Comments: TAKE ONE TABLET BY MOUTH NIGHTLY AT BEDTIME mirtazapine 15 mg tablet 15 mg PO QHS Fiber Laxative(methylcellulos) 500 mg tablet 500 mg PO PRN Provella 150 mg (2 billion cell) tablet,delayed release (DR/EC) 150 mg PO PRN melatonin 10 mg capsule 10 mg PO QHS ondansetron 4 mg tablet,disintegrating 4 mg PO 1500 fluconazole [Diflucan] 150 mg tablet 150 mg PO DAILY Qty: 1 0RF Rx Instructions: Take at completion of antibiotic course Zelac 15.5 billion cell capsule 1 cap PO DAILY Qty: 30 2RF guaifenesin 600 mg tablet extended release 12hr 600 mg PO Q12H PRN (Reason: cough) Qty: 20 0RF Patient Comments: as needed Phexxi 1.8-1-0.4 % gel 1 appful vaginal PER PKG DIR Qty: 60 3RF Rx Instructions: insert 1 applicatorful vaginally within 1 hour before each act of vaginal intercourse calcium carbonate [Antacid (calcium carbonate)] 200 mg calcium (500 mg) tablet,chewable 200 mg PO BID PRN (Reason: dyspepsia) Qty: 60 0RF Women's Multivitamin Gummies 200 mcg tablet,chewable 1 tab PO DAILY Qty: 30 1RF omeprazole 20 mg capsule,delayed release(DR/EC) 20 mg PO BID Qty: 60 2RF dexamethasone 1 mg tablet 1 mg PO ONCE Qty: 1 0RF Rx Instructions: take between 11pm-12am the night prior to labs. nicotine 7 mg/24 hr patch 24 hour 1 patch transdermal DAILY Qty: 14 1RF acetaminophen 500 mg capsule 1,000 mg PO BID PRN (Reason: pain) Qty: 120 0RF Referrals / Follow Up: More Denson MD [Primary Care Provider] - Anastacio Alcala MD [Med Staff - Active Staff] - Disposition Disposition (needs filled in before D/C Order can be placed): Home, Self Care
--- NOTE | 2023-02-11 08:21 | DCINST_ITS ---
Discharge Instructions Diet Discharge Diet: No restrictions (Will recommend a soft diet) Activity Discharge Activity: May Not Drive (While it remains difficult to check blind spots quickly) May shower in (days): 1 Ice area for (Minutes): 20 Lifting Restrictions: No lifting greater than 15 pounds for 2 weeks after surgery Dressing / Incision Call your doctor if your incision/area has: Continuous Slow Oozing, Sudden Increased Bleeding, Increased Pain/ Swelling, Increased Redness and Swelling at the incision site Call your doctor if you observe: Numbness or Tingling (If experiencing the surrounding fingertips or mouth please take a regular strength Tums and notify surgery) Remove Dressing in: 1 day (Please leave Steri-Strips intact until they fall off spontaneously or are taken off at your follow-up visit) Cleanse incision/area with: Soap & Water Follow Up Care Please Follow Up With: Anastacio Alcala MD When: 10-14 days postop Test Results: Test results from this visit will be discussed in further detail at your follow- up appointment, if applicable. Discharge Plan Admission Admit Date/Time: 02/10/23 11:22 Primary Reason for Your Visit: Thyroid cancer Attending Provider: Anastacio Alcala Primary Care Provider: More Denson Discharge Orders/Prescriptions Prescriptions: New calcium carbonate-vitamin D3 [Oyster Shell Calcium-Vit D3] 500 mg-5 mcg (200 unit) Tablet 1 tab PO TIDCM 30 Days Qty: 90 0RF levothyroxine 112 mcg Tablet 112 mcg PO DAILY 35 Days Qty: 35 0RF oxycodone 5 mg Tablet 5 mg PO Q6H PRN PRN (Reason: Pain Score 6-10) 3 Days Qty: 14 0RF Rx Instructions: remind pt to hold naltrexone while taking Continued ferrous sulfate [Feosol] 325 mg (65 mg iron) tablet 325 mg PO DAILY coenzyme Q10 10 mg capsule 10 mg PO DAILY Qty: 30 0RF ascorbic acid (vitamin C) 1,000 mg tablet 1 g PO DAILY Qty: 30 5RF atomoxetine [Strattera] 40 mg capsule 40 mg PO BID Patient Comments: Name Brand Only hydroxyzine HCl 50 mg tablet 50 mg PO QHS lurasidone [Latuda] 80 mg tablet 60 mg PO DAILY Patient Comments: Brand Name only Rx Instructions: must administer with food (at least 350 calories) paroxetine HCl [Paxil CR] 37.5 mg tablet extended release 24 hr 25 mg PO DAILY carbamazepine [Tegretol XR] 400 mg tablet extended release 12 hr 200 mg PO TID Patient Comments: Name Brand only fluticasone propionate [Flonase Allergy Relief] 50 mcg/actuation spray,suspension 1 spray intranasal QHS Qty: 16 0RF Rx Instructions: administer into each nostril lamotrigine [Lamictal XR] 100 mg tablet extended release 24hr 100 mg PO DAILY Patient Comments: Brand name only naltrexone 50 mg tablet 50 mg PO BID Patient Comments: Take 1 tablet by mouth twice a day tizanidine 4 mg tablet 4 mg PO QHS Patient Comments: TAKE ONE TABLET BY MOUTH NIGHTLY AT BEDTIME mirtazapine 15 mg tablet 15 mg PO QHS Fiber Laxative(methylcellulos) 500 mg tablet 500 mg PO PRN Provella 150 mg (2 billion cell) tablet,delayed release (DR/EC) 150 mg PO PRN melatonin 10 mg capsule 10 mg PO QHS ondansetron 4 mg tablet,disintegrating 4 mg PO 1500 fluconazole [Diflucan] 150 mg tablet 150 mg PO DAILY Qty: 1 0RF Rx Instructions: Take at completion of antibiotic course Zelac 15.5 billion cell capsule 1 cap PO DAILY Qty: 30 2RF guaifenesin 600 mg tablet extended release 12hr 600 mg PO Q12H PRN (Reason: cough) Qty: 20 0RF Patient Comments: as needed Phexxi 1.8-1-0.4 % gel 1 appful vaginal PER PKG DIR Qty: 60 3RF Rx Instructions: insert 1 applicatorful vaginally within 1 hour before each act of vaginal intercourse calcium carbonate [Antacid (calcium carbonate)] 200 mg calcium (500 mg) tablet,chewable 200 mg PO BID PRN (Reason: dyspepsia) Qty: 60 0RF Women's Multivitamin Gummies 200 mcg tablet,chewable 1 tab PO DAILY Qty: 30 1RF omeprazole 20 mg capsule,delayed release(DR/EC) 20 mg PO BID Qty: 60 2RF dexamethasone 1 mg tablet 1 mg PO ONCE Qty: 1 0RF Rx Instructions: take between 11pm-12am the night prior to labs. nicotine 7 mg/24 hr patch 24 hour 1 patch transdermal DAILY Qty: 14 1RF acetaminophen 500 mg capsule 1,000 mg PO BID PRN (Reason: pain) Qty: 120 0RF Referrals / Follow Up: More Denson MD [Primary Care Provider] - Anastacio Alcala MD [Med Staff - Active Staff] - Disposition Disposition (needs filled in before D/C Order can be placed): Home, Self Care
[2023-02-11 08:30] LABS: Calcium,Total 7.6 mg/dL (8.5-10.1)
[2023-02-11] MEDS: oxyCODONE 5 MG Tablet PO (09:28)
[2023-02-11] MEDS: Calcium Carb/Vitamin D 1 TABLET Tablet PO ×2 (09:28→11:26)
[2023-02-11 09:47] VITALS: BP 113/75; PULSE 103; RESP 14; TEMP 36.7; O2SAT 98
[2023-02-13 08:49] LABS: PTHIN 59.8 pg/mL (18.4-80.1)
== END 2023-02-11 12:41 | disposition home or self-care (01) ==
LOC: SDC 11:42 → MS3 02-11 10:18
PROVIDERS: Anesthesiology; Admitting Provider Surgery; PCP Internal Medicine; Referring Provider Surgery; Visit Provider Surgery
PROC: (CPT 60252; principal; 2023-02-10 07:15)
DX: C73 Malignant neoplasm of thyroid gland (principal); M79.7 Fibromyalgia; R59.0 Localized enlarged lymph nodes; Z87.891 Personal history of nicotine dependence; Z79.899 Other long term (current) drug therapy; K21.9 Gastro-esophageal reflux disease without esophagitis; R06.02 Shortness of breath; Z86.14 Personal history of Methicillin resistant Staphylococcus aureus infection; F41.9 Anxiety disorder, unspecified; F32.A Depression, unspecified
CPT/HCPCS: 60252; 00320; 81025; 82310; 83970; 88307; 88341; 88342; 96361; 96374; 96375; 96376; 99221; A4648; J7030; J7120; G0378; J2405

== ENCOUNTER → 2023-02-28 | Outpatient (CLI) | payer MEDICAID, SELFPAY ==
[2023-02-28 16:03] LABS: Calcium,Total 9.2 mg/dL (8.5-10.1)
[2023-03-01 09:26] LABS: PTHIN 32.2 pg/mL (18.4-80.1)
== END | disposition home or self-care (01) ==
PROVIDERS: PCP Internal Medicine; Referring Provider Surgery; Visit Provider Surgery
DX: E89.0 Postprocedural hypothyroidism (principal)
CPT/HCPCS: 36415; 82310; 83970

== ENCOUNTER → 2023-03-14 | Outpatient (CLI) | payer MEDICAID, SELFPAY ==
--- OUTSIDE RECORDS SUMMARY | 2023-03-14 11:28 | XMS RPT_ITS | CCD ---
Author Name Unknown Address [address] [place] [address] Organization [facility] Team Providers Care Surgical Technologist Name Role Phone NED PERRY Attending Unavailable Laurie Jaffe MD Unavailable [phone] Moga NEON SIGN SERVICER-DISK SHARPENER, Crystal Unavailable Suman ROBERSON, Shahzad Unavailable Ellen Rodas MD Unavailable Pron NEON SIGN SERVICER-DISK SHARPENER, Consuelo Unavailable [phone] Bill Ambriz MD Unavailable [phone] Alice ROBERSON, Christiano Tucker Unavailable Protano OTR/L, Yolis Unavailable [phone] Lasha Carias MD Unavailable [phone] Oneal ROBERSON, Donna Unavailable Lambert TREVINO, Elaine Unavailable [phone] Charanjit Richter MD Unavailable [phone] Eleuterio ROBERSON, Tigre Unavailable PHYSICIAN, NONE Primary Care Physician Unavailab Laurie Espana MD Unavailable [phone] Moga NEON SIGN SERVICER-DISK SHARPENER, Crystal Unavailable Suman ROBERSON, Shahzad Unavailable Ellen Rodas MD Unavailable Pron NEON SIGN SERVICER-DISK SHARPENER, Consuelo Unavailable [phone] Katina ROBERSON, Bill Unavailable [phone] Alice ROBERSON, Christiano Tucker Unavailable Protano OTR/L, Yolis Unavailable Aretha ROBERSON, Lasha PizanoRaudel Unavailable Oneal ROBERSON, Donna Unavailable Lambert BHATTIW, Elaine Unavailable Neelam ROBERSON, Charanjit Unavailable Eleuterio ROBERSON, Tigre Unavailable Ike ROBERSON, Yessica Primary Care Provider Ike ROBERSON, Yessica Primary Care Provider Ike ROBERSON, Yessica Primary Care Provider PROVIDER, UNKNOWN Attending Unavailable PROVIDER, UNKNOWN Admitting Unavailable PATIENT, SELF Referring Unavailable Ike ROBERSON, Yessica Primary Care Provider IKE YESSICA Attending Unavailable IKE YESSICA Primary Care Unavailable IKE, YESSICA Attending Unavailable IKE, YESSICA Attending Unavailable IKE YESSICA Primary Care Unavailable Allergies Allergy Classification Reported Allergen(s) Allergy Type Date of Onset Reaction(s) Facility (6 sources) Benzodiazepines; Translations: [BENZODIAZEPINES ] Propensity to adverse reactions to drug (disorder) 7 Headache [facility] Repository (1 source) Corticosteroids; Translations: [CORTICOSTEROIDS (GLUCOCORTICOIDS )] Propensity to adverse reactions to drug (disorder) 7 [facility] (1 source) Fluconazole; Translations: [FLUCONAZOLE] Drug Allergy 7 [facility] (13 sources) Quinolones (Antibiotic); Translations: [QUINOLONES] Propensity to adverse reactions to drug (disorder) 7 [facility] (12 sources) Corticosteroids; Translations: [CORTICOSTEROIDS ] Propensity to adverse reactions to drug 7 Headache [facility] (5 sources) Other (Review Comments!); Translations: [OTHER (REVIEW COMMENTS!)] Propensity to adverse reactions to drug [address] [facility] (7 sources) Amoxicillin Drug Allergy 3 [facility] Medications Current Medications Medication Drug Class(es) Dates Sig (Normalized) Sig (Original) acetaminophen 500 mg oral tablet (12 sources) Start: 06-23-2022 take 1 tablet by mouth every six hours as needed for pain and pain and headache and fever Acetaminophen Extra Strength 500 MG tablet Take 1 tablet (500 mg) by mouth every 6 hours as needed for mild pain (1-3), moderate pain (4-6), headaches or fever. 90 tablet 1 06/23/2022 Active Completed/Discontinued Medications Medication Drug Class(es) Dates Sig (Normalized) Sig (Original) acetaminophen 325 mg / phenylephrine hydrochloride 5 mg oral tablet (10 sources) alpha-1 Adrenergic Agonist Start: 07-29-2022 End: 01-11-2023 take 1 tablet by mouth twice daily as needed for headache Phenylephrine-Acet aminophen 5-325 MG tablet One tablet po bid prn headache 60 tablet 1 07/29/2022 01/11/2023 Discontinued (Therapy completed) benzonatate 100 mg oral capsule (6 sources) Non-narcotic Antitussive Start: 04-01-2022 End: 01-10-2023 take 2 capsules by mouth three times daily as needed for cough benzonatate (Tessalon) 100 MG capsule TAKE TWO CAPSULES BY MOUTH THREE TIMES DAILY NEEDED FOR cough 0 04/01/2022 01/10/2023 Discontinued (Therapy completed) cephalexin 500 mg oral capsule (6 sources) Cephalosporin Antibacterial Start: 06-08-2022 End: 01-10-2023 take 1 capsule by mouth twice daily cephalexin (Keflex) 500 MG capsule Take 500 mg by mouth 2 times daily. 0 06/08/2022 01/10/2023 Discontinued (Ineffective) famotidine 20 mg oral tablet (1 source) Histamine-2 Receptor Antagonist Start: 07-13-2021 End: 06-16-2022 take 1 tablet by mouth every twenty-four hours as needed famotidine (Pepcid) 20 MG tablet Take 20 mg by mouth Daily as needed. 0 07/13/2021 06/16/2022 Discontinued (Ineffective) 12 hr guaiFENesin 600 mg extended release oral tablet (6 sources) Start: 05-04-2022 End: 01-10-2023 take 1 tablet by mouth every twelve hours as needed for cough Mucinex 600 MG 12 hr tablet TAKE ONE TABLET BY MOUTH EVERY 12 HOURS NEEDED for cough 0 05/04/2022 01/10/2023 Discontinued (Ineffective) lansoprazole 30 mg delayed release oral capsule (5 sources) Proton Pump Inhibitor Start: 02-15-2021 End: 06-16-2022 lansoprazole (Prevacid) [address] capsule Take by mouth daily. 0 02/15/2021 06/16/2022 Discontinued (Ineffective) pantoprazole 40 mg delayed release oral tablet (1 source) Proton Pump Inhibitor Start: 04-19-2022 End: 06-16-2022 take 1 tablet by mouth once daily pantoprazole (ProtoNix) 40 MG EC tablet Take 40 mg by mouth daily. 0 04/19/2022 06/16/2022 Discontinued (Ineffective) petrolatum 0.41 mg/mg topical ointment (7 sources) Start: 04-08-2022 End: 01-11-2023 mineral oil-hydrophilic petrolatum (Aquaphor) ointment apply topically TO bilateral HANDS AND fingers DAILY 0 04/08/2022 01/11/2023 Discontinued (Therapy completed) varenicline 1 mg oral tablet (5 sources) Partial Cholinergic Nicotinic Agonist Start: 07-19-2022 End: 01-11-2023 take 1 tablet by mouth twice daily varenicline (Chantix) 1 MG tablet Take 1 tablet (1 mg) by mouth 2 times daily. Take with full glass of water. 60 tablet 1 07/19/2022 01/11/2023 Discontinued (Ineffective) zinc gluconate 50 mg oral tablet (1 source) Start: 03-02-2022 End: 06-16-2022 zinc gluconate 50 MG tablet Take 50 mg by mouth. 0 03/02/2022 06/16/2022 Discontinued (Therapy completed) Problems Active Problems Problem Classification Problem Date Documented Date Episodic/Chronic Adjustment disorders (12 sources) Reactive depression (situational); Translations: [Adjustment disorder with depressed mood] Onset: 09-26-2017 09-26-2017 Chronic Anxiety disorders (6 sources) Other specified anxiety disorders; Translations: [Anxiety] Onset: 08-26-2017 02-11-2019 Chronic Attention-deficit, conduct, and disruptive behavior disorders (4 sources) Attention deficit hyperactivity disorder, combined type; Translations: [Attention-deficit hyperactivity disorder, combined type] Onset: 12-04-2020 12-04-2020 Chronic Esophageal disorders (11 sources) Gastroesophageal reflux disease without esophagitis; Translations: [Gastro-esophageal reflux disease without esophagitis] Onset: 09-20-2018 02-18-2019 Chronic Fracture of upper limb (2 sources) Closed fracture of distal end of radius; Translations: [Unspecified fracture of the lower end of unspecified radius, initial encounter for closed fracture] Onset: 05-28-2021 Episodic Hemorrhage during ; abruptio placenta; placenta previa (1 source) Threatened ; Translations: [Threatened ] Onset: 06-09-2018 Episodic Nausea and vomiting (2 sources) Nausea; Translations: [Nausea] Onset: 08-26-2017 01-11-2023 Episodic Other connective tissue disease (1 source) Fibromyalgia; Translations: [Fibromyalgia] 11-16-2022 Episodic Other nervous system disorders (4 sources) Median neuropathy; 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, bilateral upper limbs] Onset: 12-27-2019 12-27-2019 Chronic Other non-traumatic joint disorders (1 source) Multiple joint pain; Translations: [Pain in unspecified joint] 11-16-2022 Episodic Other non-traumatic joint disorders (2 sources) Pain in unspecified ankle and joints of unspecified foot; Translations: [Pain in unspecified ankle and joints of unspecified foot] Onset: 11-16-2022 Episodic Residual codes; unclassified (1 source) Less than 8 weeks gestation of ; Translations: [Less than 8 weeks gestation of ] Onset: 06-09-2018 Unclassified (1 source) NO SHOW Past or Other Problems Problem Classification Problem Date Documented Da te Episodic/Chronic Cardiac dysrhythmias (4 sources) Tachycardia; Translations: [Tachycardia, unspecified] Onset: 12-27-2019 12-27-2019 Episodic Deficiency and other anemia (4 sources) Iron deficiency anemia; Translations: [Iron deficiency anemia, unspecified] Onset: 04-17-2018 04-17-2018 Episodic Esophageal disorders (4 sources) Pain in esophagus; Translations: [Esophageal pain] Onset: 05-14-2018 05-14-2018 Episodic Malaise and fatigue (5 sources) Weakness; Translations: [Fatigue] Onset: 08-26-2017 09-12-2017 Episodic Other complications of ; puerperium affecting management of mother (4 sources) Third stage hemorrhage; Translations: [Third-stage hemorrhage] Onset: 02-11-2019 02-11-2019 Episodic Other complications of (4 sources) High risk ; Translations: [Supervision of high risk , unspecified, unspecified trimester] Onset: 07-02-2018 09-18-2018 Episodic Other connective tissue disease (4 sources) Tendonitis of left wrist; Translations: [Other enthesopathies, not elsewhere classified] Onset: 10-30-2018 10-30-2018 Episodic Other connective tissue disease (4 sources) Tendonitis of right wrist; Translations: [Other enthesopathies, not elsewhere classified] Onset: 11-15-2019 11-15-2019 Episodic Other non-traumatic joint disorders (4 sources) Bilateral wrist pain; Translations: [Pain in right wrist] Onset: 09-20-2018 09-20-2018 Episodic Other and delivery including normal (8 sources) Patient encounter status; Translations: [Encounter for supervision of normal , unspecified, unspecified trimester] Onset: 10-25-2018 02-03-2019 Episodic Polyhydramnios and other problems of amniotic cavity (4 sources) Chorioamnionitis; Translations: [Chorioamnionitis, unspecified trimester, not applicable or unspecified] Onset: 02-11-2019 02-11-2019 Episodic Results Test Name Value Interpretation Reference Range Facil ity Vital Signs Date Time Vital Sign Value Performing Clinician Greeri lity 06-16-2022 10:54-0400 Body height 162.6 cm Yessica Ramires MD Work Phone: [facility] [employer] 06-16-2022 10:54-0400 Body mass index (BMI) [Ratio] 24.72 kg/m2 Yessica Ramires MD Work Phone: [employer] 06-16-2022 10:54-0400 Body weight 65.32 kg Yessica Ramires MD Work Phone: [facility] [employer] 06-16-2022 10:54-0400 Diastolic blood pressure 60 mm[Hg] Yessica Ramires MD Work Phone: [facility] [employer] 06-16-2022 10:54-0400 Heart rate 109 /min Yessica Ramires MD Work Phone: [facility] [employer] 06-16-2022 10:54-0400 SaO2% (BldA) [Mass fraction] 98 % Yessica Ramires MD Work Phone: [facility] [employer] 06-16-2022 10:54-0400 Systolic blood pressure 112 mm[Hg] Yessica Ramires MD Work Phone: [facility] [employer] 05-28-2021 20:43-0400 Body height 162.[address] KAVITA VAUGHAN MD [facility] 05-28-2021 20:43-0400 Body temperature 97.88 [degF] DR KAVITA VAUGHAN MD [facility] 05-28-2021 20:43-0400 Body weight 81.[address] KAVITA VAUGHAN MD [facility] 05-28-2021 20:43-0400 Diastolic blood pressure 77 mm[Hg] DR KAVITA VAUGHAN MD [facility] 05-28-2021 20:43-0400 Heart rate 87 /min DR KAVITA VAUGHAN MD [facility] 05-28-2021 20:43-0400 Respiratory rate 18 /min DR KAVITA VAUGHAN MD [facility] 05-28-2021 20:43-0400 Systolic blood pressure 131 mm[Hg] DR KAVITA VAUGHAN MD [facility] Encounters Encounter Date Encounter Type Care Provider Facility Start: 01-11-2023 End: 01-11-2023 ambulatory YESSICA RAMIRES [facility] Start: 01-11-2023 End: 01-11-2023 Office outpatient visit 15 minutes Yessica Ramires MD Work Phone: [facility] Procedures Date Procedure Procedure Detail Performing Clinician Start: 03-11-2019 Microscopic observat ion [Identifier] in Cervix by Cyto stain Hanna Qureshi NEON SIGN SERVICER-DISK SHARPENER Work Phone: Start: 06-09-2018 Antibody screen NED LIRIANO Plan of Treatment Date Care Activity Detail Author Start: 2036 Shingles (RZV) Vaccine (1 of 2) Shingles (RZV) Vaccine (1 of 2) [facility] Start: 11-15-2028 DTaP/Tdap/Td Vaccines (2 - Td or Tdap) DTaP/Tdap/Td Vaccines (2 - Td or Tdap) [facility] Start: 11-15-2028 [facility] Start: 01-11-2023 End: 01-12-2024 CBC W Auto Differential panel - Blood CBC auto differential Lab Routine Nausea Expected: 01/11/2023 (Approximate), Expires: 01/12/2024 [facility] Work Phone: Immunizations Immunization Date Immunization Notes Care Provider Jov[facility] 02-17-2022 influenza virus vacc ine, unspecified formulation Yessica Ramires MD Work Phone: [facility] 12-06-2018 influenza, injectabl e, quadrivalent, preservative free Hanna Qureshi NEON SIGN SERVICER-DISK SHARPENER Work Phone: [facility] 12-06-2018 influenza virus vacc ine, unspecified formulation Hanna Qureshi NEON SIGN SERVICER-DISK SHARPENER Work Phone: [facility] 11-15-2018 tetanus toxoid, redu evelyn diphtheria toxoid, and acellular pertussis vaccine, adsorbed Hanna Qureshi NEON SIGN SERVICER-DISK SHARPENER Work Phone: [facility] Payers Date Payer Category Payer Medicaid [id number] 2021 Medicaid [id number] 2021 Medicaid [id number] 1985 Unknown [id number] Social History Date Type Detail Facility Start: 07-02-2018 End: 06-16-2022 Tobacco smoking status [facility] Work Phone: Start: 07-02-2018 Tobacco use and exposure Former smokeless tobacco user [facility] End: 05-03-2017 History of tobacco use User of smokeless tobacco [facility] Start: 03-18-2021 End: 06-16-2022 Alcohol intake Ex-drinker (finding) [facility] Start: 09-18-2018 History SDOH Alcohol Comment sober since 06/19/15 [facility] Start: 02-15-2021 History SDOH Housing Unable to Pay 3 [facility] Start: 02-15-2021 History SDOH Housing Places Lived 1 [facility] Start: 1985 Sex Assigned At Not on file [facility] Start: 05-28-2021 Never smoked t obacco (finding) [facility] Sex Assigned At Female [facility] End: 02-03-2022 History of tobacco use Current smoker [facility] End: 02-03-2022 History of tobacco use Cigarette Smoker [facility] Start: 06-16-2022 Cigarettes smoked current (pack per day) - Reported 0.5 [facility] Start: 06-16-2022 Tobacco use and exposure Smokeless tobacco non-user [facility] Start: 06-06-2022 End: 06-16-2022 Exposure to SARS-CoV-2 (event) Not sure [facility] Start: 06-16-2022 Tobacco use panel [facility] Clinical Notes 02-14-2021 to 01-11-2023 Yessica Ramires MD - 01/11/2023 11:40 AM Francis Ramires MD - 11/16/2022 11:40 AM EDTTelephone Encounter - Yessica Ramires MD - 08/02/2022 1:20 PM EDT Note Date & Type Note Facility 01-11-2023 History of Present illness Narrative Images from the original note were not included. [facility] [address] [facility] [address] Dept: [phone] Dept Loc: [phone] Reason for Visit: nausea Assessment and Plan 1. Nausea - CBC auto differential - Comprehensive metabolic panel - TSH I advised patient that I do recommend blood work to be done. Patient states that this time she will most likely be changing providers due to her location and her not being able to come in for appointments or getting blood work I advised patient that I do recommend she get blood work doing checkup. As well as she takes medications but need to be monitored. I did go ahead and write her prescription for Zofran to be used as needed. I do not advise to be taken every day. I do recommend further work-up at this time patient does decline she states she wants to see another provider current treatment plan is effective, no change in therapy, orders and follow up as documented in EMR, lab results reviewed with patient, repeat labs ordered prior to next appointment, reviewed compliance with lifestyle measures, reviewed diet, exercise and weight control, reviewed medications and side effects in detail Return visit in 3 months. Subjective HPI this is a 37-year-old female patient who has a history of nausea she states from taking carbamazepine as well as Latuda. She states she gets nausea every day since she takes the medication and her psychiatrist told her to talk to her primary care regarding this. She has not had any recent blood work she states she lives very far away from the hospital and she is unable to get any blood work done at this time she would like to possibly see a provider closer to where she lives that she is able to get more testing. She has nausea she states long-term with vomiting as soon as she takes her carbamazepine. No diarrhea. No specific abdominal pain fever chills that she is complaining about. Review of Systems Constitutional: Negative. Negative for activity change, appetite change and fever. HENT: Negative. Negative for congestion. Eyes: Negative. Negative for discharge. Respiratory: Negative. Negative for chest tightness. Cardiovascular: Negative. Gastrointestinal: Positive for nausea. Endocrine: Negative. Negative for cold intolerance. Genitourinary: Negative for difficulty urinating. Musculoskeletal: Negative. Neurological: Negative. Negative for dizziness, facial asymmetry and headaches. Hematological: Negative. Allergies Allergen Reactions Corticosteroids Headache Anxiety Amoxicillin Quinolones Anxiety Outpatient Medications Prior to Visit Medication Sig Dispense Refill Acetaminophen Extra Strength 500 MG tablet Take 1 tablet (500 mg) by mouth every 6 hours as needed for mild pain (1-3), moderate pain (4-6), headaches or fever. 90 tablet 1 Ascorbic Acid (vitamin C) 1000 MG tablet Take 1,000 mg by mouth daily. azelaic acid (Finacea) 15 % gel Apply thin layer to full face TWICE DAILY carBAMazepine XR (TEGretol XR) 400 MG 12 hr tablet Take 400 mg by mouth 3 times daily. cefdinir (Omnicef) 300 MG capsule TAKE ONE CAPSULE BY MOUTH TWICE DAILY FOR 5 DAYS coenzyme Q-10 (Q-SORB) 100 MG capsule Take 1 capsule by mouth daily. emollient (Vanicream) cream Apply a thin layer to hands and body if needed FeroSul 325 (65 Fe) MG tablet Take 1 tablet by mouth daily. fluticasone (Cutivate) 0.05 % cream Apply to hands twice daily if needed for itching Hyaluronate Sodium (Sodium Hyaluronate) powder hydrOXYzine pamoate (Vistaril) 50 MG capsule TAKE ONE CAPSULE BY MOUTH ONCE DAILY NEEDED ibuprofen 400 MG tablet take 1 tablet by mouth three times a day with food if needed Lactobacillus (Acidophilus Probiotic) 100 MG capsule Take 1 capsule by mouth daily. Latuda 40 MG tablet Take 1 tablet by mouth in the morning and 1 tablet in the evening. loratadine (Claritin) 10 MG tablet Take 1 tablet (10 mg) by mouth daily. 90 tablet 0 Magnesium Citrate 100 MG tablet Take 1 tablet by mouth in the morning. 90 tablet 1 Melatonin Maximum Strength 5 MG tablet TAKE 1 OR 2 TABLETS BY MOUTH AT BEDTIME meloxicam (Mobic) 7.5 MG tablet Take 7.5 mg by mouth 2 times daily. Miconazole 3 200 MG vaginal suppository insert 1 suppository vaginally once daily at bedtime for 3 days Multiple Vitamins-Minerals (Multivitamin Gummies Womens) chewable tablet Chew 1 each daily. 90 tablet 3 naproxen (Naprosyn) 500 MG tablet Take 500 mg by mouth 2 times daily as needed. nicotine (Nicoderm, Step 3) 7 MG/24HR patch Apply 1 patch to skin daily as directed omeprazole (PriLOSEC) [address] capsule Take 20 mg by mouth 2 times daily. PARoxetine CR (Paxil-CR) 25 MG 24 hr tablet Take 25 mg by mouth daily. Probiotic Product capsule Soap & Cleansers (cetaphil) facial cleanser Apply 10 mL topically in the morning. Strattera 40 MG capsule Take 40 mg by mouth 2 times daily. sucralfate (Carafate) 1 g tablet Take 1 g by mouth Daily as needed. sulfacetamide sodium-sulfur (Avar) 10-5 % liquid cleanser Wash face every other day sulfacetamide suspension (Klaron) 10 % lotion topical Cleanse face thoroughly daily tacrolimus (Protopic) 0.1 % ointment triamcinolone (Kenalog) 0.1 % cream Triple Antibiotic Plus 1 % ointment apply to HEELS twice a day urea (Carmol) 40 % cream Apply topically daily. to affected area mineral oil-hydrophilic petrolatum (Aquaphor) ointment apply topically TO bilateral HANDS AND fingers DAILY ondansetron ODT (Zofran-ODT) 4 MG disintegrating tablet TAKE ONE TABLET BY MOUTH EVERY 8 HOURS NEEDED FOR NAUSEA AND VOMITING Phenylephrine-Acetaminophen (Tylenol Sinus+Headache) 5-325 MG tablet One po bid for 10 days 20 tablet 0 Phenylephrine-Acetaminophen 5-325 MG tablet One tablet po bid prn headache 60 tablet 1 varenicline (Chantix) 1 MG tablet Take 1 tablet (1 mg) by mouth 2 times daily. Take with full glass of water. 60 tablet 1 No facility-administered medications prior to visit. There is no problem list on file for this patient. Past Medical History: Diagnosis Date Acid reflux ADHD Complex posttraumatic stress disorder Fibromyalgia Social History Tobacco Use Smoking status: Former Packs/day: 0.50 Years: 15.00 Additional pack years: 0.00 Total pack years: 7.50 Types: Cigarettes Quit date: 02/2022 Years since quittin.9 Smokeless tobacco: Never Substance Use Topics Alcohol use: Not Currently Past Surgical History: Procedure Laterality Date CHOLECYSTECTOMY 2012 No family history on file. Health Maintenance Topic Date Due Hepatitis B Vaccines (1 of 3 - 3-dose series) Never done HIV Screening Never done MMR Vaccines (1 of 1 - Standard series) Never done Varicella Vaccines (1 of 2 - 2-dose childhood series) Never done COVID-19 Vaccine (1) Never done Pneumococcal Vaccine: Pediatrics (0 to 5 Years) and At-Risk Patients (6 to 64 Years) (1 - PCV) Never done Depression Screening Never done Hepatitis C Screening Never done Zoster Vaccines (1 of 2) Never done Cervical Cancer Screening Never done Influenza Vaccine (1) 11/04/2022 DTaP/Tdap/Td Vaccines (2 - Td or Tdap) 11/15/2028 HIB Vaccines Aged Out IPV Vaccines Aged Out Hepatitis A Vaccines Aged Out Meningococcal Vaccine Aged Out Rotavirus Vaccines Aged Out HPV Vaccines Aged Out Objective There were no vitals taken for this visit. Physical Exam Data Reviewed and Summarized Labs: No results found for: WBC , HGB , HCT , PLT , TSH , PSA , INR , GLUF No results found for: NA , K , CL , CO2 , BUN , CREATININE , GLUCOSE , CALCIUM , PROT , BILITOT , ALKPHOS , AST , ALT , LABGLOM , AGRATIO , GLOB @GLUCOSELAB@ No results found for: CHLPL , CHOL No results found for: TRIG No results found for: HDL No results found for: LDLCALC No results found for: VLDL No results found for: CHOLHDLRATIO Imaging/Testing: No image results found. Yessica Ramires MD documented in this encounter [facility] 11-16-2022 History of Present illness Narrative Images from the original note were not included. [facility] [address] [place] [address] [address] [facility] [address] Dept: [phone] Dept Loc: [phone] Reason for Visit: arthralgia Patient was seen today via Telehealth by agreement and consent. I used the following Telehealth technology: Audio and video capabilities. Patient location: Patient Location: Home. This patient encounter is appropriate and reasonable under the circumstances: . The patient has been advised of the potential risks and limitations of this mode of treatment (including but not limited to the absence of in-person examination) and has agreed to be treated in a remote fashion in spite of them. Any and all of the patient's/patient's family's questions on this issue have been answered and I have made no promises or guarantees to the patient. The patient has also been advised to contact this office for worsening conditions or problems, and seek emergency medical treatment and/or call 911 if the patient deems either necessary. The patient stated that they are currently in the [facility]. If the patient is a minor, permission has been obtained by the parent or guardian for the patient to receive medical care at this visit. Assessment and Plan 1. Fibromyalgia - EIT[facility] - Sedimentation rate, automated - Rheumatoid factor - CBC auto differential - Comprehensive metabolic panel - [facility] Rheumatology 2. Arthralgia of multiple sites, bilateral - [facility] - Sedimentation rate, automated - Rheumatoid factor - CBC auto differential - Comprehensive metabolic panel - [facility] Rheumatology current treatment plan is effective, no change in therapy, orders and follow up as documented in EMR, lab results reviewed with patient, repeat labs ordered prior to next appointment, reviewed compliance with lifestyle measures, reviewed diet, exercise and weight control, reviewed medications and side effects in detail Return visit in 3 months. Subjective HPI this is a 37-year-old female patient with multiple medical problems. Patient has a history of arthralgias. She currently was diagnosed she states at 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 She states that she gets joint pain in multiple joints. She has had years of neck shoulder arm pains. Review of Systems Constitutional: Negative. Negative for activity change, appetite change and fever. HENT: Negative. Negative for congestion. Eyes: Negative. Negative for discharge. Respiratory: Negative. Negative for chest tightness. Cardiovascular: Negative. Gastrointestinal: Negative. Endocrine: Negative. Negative for cold intolerance. Genitourinary: Negative for difficulty urinating. Musculoskeletal: Positive for arthralgias. Neurological: Negative. Negative for dizziness, facial asymmetry and headaches. Hematological: Negative. Allergies Allergen Reactions Corticosteroids Headache Anxiety Amoxicillin Quinolones Anxiety Outpatient Medications Prior to Visit Medication Sig Dispense Refill Acetaminophen Extra Strength 500 MG tablet Take 1 tablet (500 mg) by mouth every 6 hours as needed for mild pain (1-3), moderate pain (4-6), headaches or fever. 90 tablet 1 Ascorbic Acid (vitamin C) 1000 MG tablet Take 1,000 mg by mouth daily. azelaic acid (Finacea) 15 % gel Apply thin layer to full face TWICE DAILY benzonatate (Tessalon) 100 MG capsule TAKE TWO CAPSULES BY MOUTH THREE TIMES DAILY NEEDED FOR cough carBAMazepine XR (TEGretol XR) 400 MG 12 hr tablet Take 400 mg by mouth 3 times daily. cefdinir (Omnicef) 300 MG capsule TAKE ONE CAPSULE BY MOUTH TWICE DAILY FOR 5 DAYS cephalexin (Keflex) 500 MG capsule Take 500 mg by mouth 2 times daily. coenzyme Q-10 (Q-SORB) 100 MG capsule Take 1 capsule by mouth daily. emollient (Vanicream) cream Apply a thin layer to hands and body if needed FeroSul 325 (65 Fe) MG tablet Take 1 tablet by mouth daily. fluticasone (Cutivate) 0.05 % cream Apply to hands twice daily if needed for itching Hyaluronate Sodium (Sodium Hyaluronate) powder hydrOXYzine pamoate (Vistaril) 50 MG capsule TAKE ONE CAPSULE BY MOUTH ONCE DAILY NEEDED ibuprofen 400 MG tablet take 1 tablet by mouth three times a day with food if needed Lactobacillus (Acidophilus Probiotic) 100 MG capsule Take 1 capsule by mouth daily. Latuda 40 MG tablet Take 1 tablet by mouth in the morning and 1 tablet in the evening. loratadine (Claritin) 10 MG tablet Take 1 tablet (10 mg) by mouth daily. 90 tablet 0 Magnesium Citrate 100 MG tablet Take 1 tablet by mouth in the morning. 90 tablet 1 Melatonin Maximum Strength 5 MG tablet TAKE 1 OR 2 TABLETS BY MOUTH AT BEDTIME meloxicam (Mobic) 7.5 MG tablet Take 7.5 mg by mouth 2 times daily. Miconazole 3 200 MG vaginal suppository insert 1 suppository vaginally once daily at bedtime for 3 days mineral oil-hydrophilic petrolatum (Aquaphor) ointment apply topically TO bilateral HANDS AND fingers DAILY Mucinex 600 MG 12 hr tablet TAKE ONE TABLET BY MOUTH EVERY 12 HOURS NEEDED for cough Multiple Vitamins-Minerals (Multivitamin Gummies Womens) chewable tablet Chew 1 each daily. 90 tablet 3 naproxen (Naprosyn) 500 MG tablet Take 500 mg by mouth 2 times daily as needed. nicotine (Nicoderm, Step 3) 7 MG/24HR patch Apply 1 patch to skin daily as directed omeprazole (PriLOSEC) [address] capsule Take 20 mg by mouth 2 times daily. ondansetron ODT (Zofran-ODT) 4 MG disintegrating tablet TAKE ONE TABLET BY MOUTH EVERY 8 HOURS NEEDED FOR NAUSEA AND VOMITING PARoxetine CR (Paxil-CR) 25 MG 24 hr tablet Take 25 mg by mouth daily. Phenylephrine-Acetaminophen (Tylenol Sinus+Headache) 5-325 MG tablet One po bid for 10 days 20 tablet 0 Phenylephrine-Acetaminophen 5-325 MG tablet One tablet po bid prn headache 60 tablet 1 Probiotic Product capsule Soap & Cleansers (cetaphil) facial cleanser Apply 10 mL topically in the morning. Strattera 40 MG capsule Take 40 mg by mouth 2 times daily. sucralfate (Carafate) 1 g tablet Take 1 g by mouth Daily as needed. sulfacetamide sodium-sulfur (Avar) 10-5 % liquid cleanser Wash face every other day sulfacetamide suspension (Klaron) 10 % lotion topical Cleanse face thoroughly daily tacrolimus (Protopic) 0.1 % ointment triamcinolone (Kenalog) 0.1 % cream Triple Antibiotic Plus 1 % ointment apply to HEELS twice a day urea (Carmol) 40 % cream Apply topically daily. to affected area varenicline (Chantix) 1 MG tablet Take 1 tablet (1 mg) by mouth 2 times daily. Take with full glass of water. 60 tablet 1 No facility-administered medications prior to visit. There is no problem list on file for this patient. Past Medical History: Diagnosis Date Acid reflux ADHD Complex posttraumatic stress disorder Fibromyalgia Social History Tobacco Use Smoking status: Former Packs/day: 0.50 Years: 15.00 Pack years: 7.50 Types: Cigarettes Quit date: 02/2022 Years since quittin.7 Smokeless tobacco: Never Substance Use Topics Alcohol use: Not Currently Past Surgical History: Procedure Laterality Date CHOLECYSTECTOMY 2012 No family history on file. Health Maintenance Topic Date Due Hepatitis B Vaccines (1 of 3 - 3-dose series) Never done HIV Screening Never done COVID-19 Vaccine (1) Never done MMR Vaccines (1 of 1 - Standard series) Never done Varicella Vaccines (1 of 2 - 2-dose childhood series) Never done Pneumococcal Vaccine: Pediatrics (0 to 5 Years) and At-Risk Patients (6 to 64 Years) (1 - PCV) Never done Depression Screening Never done Hepatitis C Screening Never done Zoster Vaccines (1 of 2) Never done Cervical Cancer Screening Never done Influenza Vaccine (1) 11/04/2022 DTaP/Tdap/Td Vaccines (2 - Td or Tdap) 11/15/2028 HIB Vaccines Aged Out IPV Vaccines Aged Out Hepatitis A Vaccines Aged Out Meningococcal Vaccine Aged Out Rotavirus Vaccines Aged Out HPV Vaccines Aged Out Objective There were no vitals taken for this visit. Physical Exam Data Reviewed and Summarized Labs: No results found for: WBC, HGB, HCT, PLT, TSH, PSA, INR, GLUF No results found for: NA, K, CL, CO2, BUN, CREATININE, GLUCOSE, CALCIUM, PROT, BILITOT, ALKPHOS, AST, ALT, LABGLOM, AGRATIO, GLOB @GLUCOSELAB@ No results found for: CHLPL, CHOL No results found for: TRIG No results found for: HDL No results found for: LDLCALC No results found for: VLDL No results found for: CHOLHDLRATIO Imaging/Testing: No image results found. Yessica Ramires MD documented in this encounter [facility] 08-02-2022 Telephone encounter Note Yes I agree that is fine. Thank you [facility] 08-02-2022 Miscellaneous Notes Yes I agree that is fine. Thank you Images from the original note were not included. S: Pharmacist Janae Berumen spoke with CAC nurse regarding new order of Phenylephrine-Acetaminophen (Tylenol Sinus+Headache) 5-325 MG tablet B: The pharmacist said it was ordered earlier today then canceled and is now reordered. The pharmacist wanted to to be sure she should fill the 2nd order. A: I looked into the patient messages from today. At 1146 there is a message from Dr Ramires: Yessica Ramires MD 11:46 AM Note I spoke to the patient. She states her sinuses are full green nasal discharge. She is getting green nasal discharge. I went ahead sent in Tylenol sinus as well add Zithromax however if she is not feeling any better she will need to schedule appointment.patient aware R: I advised Janae of this message and yes she did order the medication again and is ok to fill. The pharmacist said they come in packs of 24 not 20. I advised her I will make Dr Ramires aware and it should be okay to fill as it comes in a 24 pack. Reason for Disposition Pharmacy calling with prescription question and triager answers question Protocols used: Medication Question [id number] documented in this encounter [facility] 07-29-2022 Telephone encounter Note Images from the original note were not included. S: Pharmacist Janae Berumen spoke with CAC nurse regarding new order of Phenylephrine-Acetaminophen (Tylenol Sinus+Headache) 5-325 MG tablet B: The pharmacist said it was ordered earlier today then canceled and is now reordered. The pharmacist wanted to to be sure she should fill the 2nd order. A: I looked into the patient messages from today. At [address] there is a message from Dr Ramires: Yessica Ramires MD 11:46 AM Note I spoke to the patient. She states her sinuses are full green nasal discharge. She is getting green nasal discharge. I went ahead sent in Tylenol sinus as well add Zithromax however if she is not feeling any better she will need to schedule appointment.patient aware R: I advised Janae of this message and yes she did order the medication again and is ok to fill. The pharmacist said they come in packs of 24 not 20. I advised her I will make Dr Ramires aware and it should be okay to fill as it comes in a 24 pack. Reason for Disposition Pharmacy calling with prescription question and triager answers question Protocols used: Medication Question [id number] [facility] 06-23-2022 Telephone encounter Note Last seen:06/16/22 Scheduled:n/a [facility] 06-23-2022 Miscellaneous Notes Last seen:06/16/22 Scheduled:n/a documented in this encounter [facility] 06-16-2022 History of Present illness Narrative Images from the original note were not included. [facility] [address] [id number] Dept: [phone] Dept Loc: [phone] Reason for Visit: New Patient Assessment and Plan 1. Chronic GERD continue omeprazole 20 mg twice daily I do recommend patient get a scope to further evaluate this. Patient also states she uses Maalox [id number] would like a prescription for this. I would recommend she only take this as needed. - [facility] Gastroenterology 2. Anxiety Patient currently seeing psychiatrist. Who is prescribing medications for patient. Patient and I discussed blood work. Patient states she just got blood work done from another provider. . Medical provider. Patient states she will get the records and give to me for review. current treatment plan is effective, no change in therapy, orders and follow up as documented in EMR, lab results reviewed with patient, repeat labs ordered prior to next appointment, reviewed compliance with lifestyle measures, reviewed diet, exercise and weight control, reviewed medications and side effects in detail Return visit in 3 months. Subjective HPI 36-year-old female patient who is here with her daughter. She states she recently moved. She came for a new physician. Recently she from her daughter's father. She was living with her parent. Now she has moved again. We discussed getting records but at this time she would like us to hold off as she does not want people to know her address. She sees a psychiatrist she states she sees them online. They are currently treating her. She has had no issues with any She states she was recently at the dentist for an infection she is on antibiotics currently for that. She has been having issues with chronic GERD. She has been on multiple medications in the past Prevacid Pepcid. Has never been scoped. Right now she is taking omeprazole she feels like it was working. She has a lot of stress in her life. Review of Systems Constitutional: Negative for activity change, appetite change and chills. HENT: Negative. Respiratory: Negative. Cardiovascular: Negative for chest pain, palpitations and leg swelling. Gastrointestinal: Heart burn Endocrine: Negative. Psychiatric/Behavioral: Negative for agitation, behavioral problems, confusion, decreased concentration and dysphoric mood. The patient is nervous/anxious. Allergies Allergen Reactions Corticosteroids Headache Anxiety Amoxicillin Quinolones Anxiety Outpatient Medications Prior to Visit Medication Sig Dispense Refill Acetaminophen Extra Strength 500 MG tablet TAKE TWO TABLETS BY MOUTH EVERY 8 HOURS NEEDED FOR PAIN Ascorbic Acid (vitamin C) 1000 MG tablet Take 1,000 mg by mouth daily. azelaic acid (Finacea) 15 % gel Apply thin layer to full face TWICE DAILY benzonatate (Tessalon) 100 MG capsule TAKE TWO CAPSULES BY MOUTH THREE TIMES DAILY NEEDED FOR cough carBAMazepine XR (TEGretol XR) 400 MG 12 hr tablet Take 400 mg by mouth 3 times daily. cefdinir (Omnicef) 300 MG capsule TAKE ONE CAPSULE BY MOUTH TWICE DAILY FOR 5 DAYS cephalexin (Keflex) 500 MG capsule Take 500 mg by mouth 2 times daily. coenzyme Q-10 (Q-SORB) 100 MG capsule Take 1 capsule by mouth daily. Cold & Flu Relief Daytime 10-5-325 MG capsule TAKE ONE CAPSULE BY MOUTH EVERY 12 HOURS NEEDED FOR COLD symptoms Cold & Flu Relief Nighttime 15-6.25-325 MG capsule TAKE ONE CAPSULE BY MOUTH AT BEDTIME NEEDED for cold symptoms emollient (Vanicream) cream Apply a thin layer to hands and body if needed FeroSul 325 (65 Fe) MG tablet Take 1 tablet by mouth daily. fexofenadine (Judy) 60 MG tablet Take by mouth every 12 hours. fluticasone (Cutivate) 0.05 % cream Apply to hands twice daily if needed for itching Hyaluronate Sodium (Sodium Hyaluronate) powder hydrOXYzine pamoate (Vistaril) 50 MG capsule TAKE ONE CAPSULE BY MOUTH ONCE DAILY NEEDED ibuprofen 400 MG tablet take 1 tablet by mouth three times a day with food if needed Lactobacillus (Acidophilus Probiotic) 100 MG capsule Take 1 capsule by mouth daily. Latuda 40 MG tablet Take 1 tablet by mouth in the morning and 1 tablet in the evening. loratadine (Claritin) 10 MG tablet Take 10 mg by mouth daily. Magnesium Citrate 100 MG tablet Take by mouth daily. Melatonin Maximum Strength 5 MG tablet TAKE 1 OR 2 TABLETS BY MOUTH AT BEDTIME meloxicam (Mobic) 7.5 MG tablet Take 7.5 mg by mouth 2 times daily. Miconazole 3 200 MG vaginal suppository insert 1 suppository vaginally once daily at bedtime for 3 days mineral oil-hydrophilic petrolatum (Aquaphor) ointment apply topically TO bilateral HANDS AND fingers DAILY Mucinex 600 MG 12 hr tablet TAKE ONE TABLET BY MOUTH EVERY 12 HOURS NEEDED for cough naproxen (Naprosyn) 500 MG tablet Take 500 mg by mouth 2 times daily as needed. nicotine (Nicoderm, Step 3) 7 MG/24HR patch Apply 1 patch to skin daily as directed omeprazole (PriLOSEC) [address] capsule Take 20 mg by mouth 2 times daily. ondansetron ODT (Zofran-ODT) 4 MG disintegrating tablet TAKE ONE TABLET BY MOUTH EVERY 8 HOURS NEEDED FOR NAUSEA AND VOMITING PARoxetine CR (Paxil-CR) 25 MG 24 hr tablet Take 25 mg by mouth daily. Probiotic Product capsule Soap & Cleansers (cetaphil) facial cleanser Apply 10 mL topically in the morning. Strattera 40 MG capsule Take 40 mg by mouth 2 times daily. sucralfate (Carafate) 1 g tablet Take 1 g by mouth Daily as needed. sulfacetamide sodium-sulfur (Avar) 10-5 % liquid cleanser Wash face every other day sulfacetamide suspension (Klaron) 10 % lotion topical Cleanse face thoroughly daily tacrolimus (Protopic) 0.1 % ointment triamcinolone (Kenalog) 0.1 % cream Triple Antibiotic Plus 1 % ointment apply to HEELS twice a day urea (Carmol) 40 % cream Apply topically daily. to affected area famotidine (Pepcid) 20 MG tablet Take 20 mg by mouth Daily as needed. lansoprazole (Prevacid) [address] capsule Take by mouth daily. pantoprazole (ProtoNix) 40 MG EC tablet Take 40 mg by mouth daily. zinc gluconate 50 MG tablet Take 50 mg by mouth. No facility-administered medications prior to visit. There is no problem list on file for this patient. Past Medical History: Diagnosis Date Acid reflux ADHD Complex posttraumatic stress disorder Fibromyalgia Social History Tobacco Use Smoking status: Former Packs/day: 0.50 Years: 15.00 Pack years: 7.50 Types: Cigarettes Quit date: 02/2022 Years since quittin.3 Smokeless tobacco: Never Substance Use Topics Alcohol use: Not Currently Past Surgical History: Procedure Laterality Date CHOLECYSTECTOMY 2012 No family history on file. Health Maintenance Topic Date Due Hepatitis B Vaccines (1 of 3 - 3-dose series) Never done HIV Screening Never done COVID-19 Vaccine (1) Never done MMR Vaccines (1 of 1 - Standard series) Never done Varicella Vaccines (1 of 2 - 2-dose childhood series) Never done Pneumococcal Vaccine: Pediatrics (0 to 5 Years) and At-Risk Patients (6 to 64 Years) (1 - PCV) Never done Hepatitis C Screening Never done Zoster Vaccines (1 of 2) Never done Cervical Cancer Screening Never done DTaP/Tdap/Td Vaccines (2 - Td or Tdap) 11/15/2028 Influenza Vaccine Completed HIB Vaccines Aged Out IPV Vaccines Aged Out Hepatitis A Vaccines Aged Out Meningococcal Vaccine Aged Out Rotavirus Vaccines Aged Out HPV Vaccines Aged Out Objective BP 112/60 Pulse 109 Ht 5' 4 (1.626 m) Wt 144 lb (65.3 kg) SpO2 98% BMI 24.72 kg/m Physical Exam Constitutional: Appearance: Normal appearance. HENT: Head: Normocephalic and atraumatic. Musculoskeletal: Comments: No problems with ambulation Neurological: Mental Status: She is alert and oriented to person, place, and time. Psychiatric: Mood and Affect: Mood normal. Behavior: Behavior normal. Thought Content: Thought content normal. Judgment: Judgment normal. Data Reviewed and Summarized Labs: No results found for: WBC, HGB, HCT, PLT, TSH, PSA, INR, GLUF No results found for: NA, K, CL, CO2, BUN, CREATININE, GLUCOSE, CALCIUM, PROT, BILITOT, ALKPHOS, AST, ALT, LABGLOM, AGRATIO, GLOB @GLUCOSELAB@ No results found for: CHLPL, CHOL No results found for: TRIG No results found for: HDL No results found for: LDLCALC No results found for: VLDL No results found for: CHOLHDLRATIO Imaging/Testing: No image results found. Yessica Ramires MD documented in this encounter [facility] 10-09-2021 Note HNO ID: [id number] Author: Annia Balbuena APRN.[employer] Service: ? Author Type: Nurse Practitioner Type: Progress Notes Filed: 10/09/2021 3:16 PM Note Text: Subjective The history is provided by the patient. No language assistant was used. HPI Aminah Mallory is a 35 year old female who presents today for CC of burning urgency and frequency Positive for Dysuria, Increase in frequency of urination, Urgency, and Vaginal itch or discharge, Negative for Sense of incomplete void, Fevers, Vomiting, Diarrhea, Abdominal pain , Back/Flank pain, and Blood in urine Chance of : No Last intercourse: not sexually active for 3 years declines STD testing Any self-treatment attempted: No Number of previous UTI's in last 6 months:0 Number of previous UTI's in last 12 months: 0 Aggravating Factors: none Alleviating Factors include none with no relief in symptoms. BP 122/80 Pulse 110 Temp 36.5 ?C (97.7 ?F) (Tympanic) Resp 16 Wt 82.6 kg (182 lb 3.2 oz) LMP 02/22/2021 SpO2 99% BMI 31.27 kg/m? Social History Tobacco Use Smoking status: Former Packs/day: 0.10 Years: 15.00 Pack years: 1.50 Types: Cigarettes Smokeless tobacco: Never Vaping Use Vaping Use: Never used Substance Use Topics Alcohol use: No Comment: none Drug use: No PAST MEDICAL HISTORY Diagnosis Date Anxiety 03/15/2006 Back pain Fibromyalgia RELL (generalized anxiety disorder) 06/22/2015 GERD (gastroesophageal reflux disease) Hypertension Insomnia PTSD (post-traumatic stress disorder) 06/22/2015 Tachycardia I have confirmed and edited as necessary, the [facility] Review of Systems Constitutional: Negative for chills and fever. Gastrointestinal: Negative for abdominal pain. Genitourinary: Positive for dysuria and urgency. Negative for flank pain, frequency and hematuria. Vaginal discharge Objective Physical Exam Vitals and nursing note reviewed. Constitutional: Appearance: Normal appearance. Abdominal: General: Bowel sounds are normal. There is no abdominal bruit. Palpations: Abdomen is not rigid. There is no mass or pulsatile mass. Tenderness: There is no abdominal tenderness. There is no guarding or rebound. Negative signs include Jade's sign and McBurney's sign. Neurological: Mental Status: She is alert and oriented to person, place, and time. Psychiatric: Mood and Affect: Affect normal. ASSESSMENT/PLAN: 1. Urinary frequency - ICD9: 788.41, ICD10: R35.0 (primary diagnosis) acute - UA positive for diony esterase and hematuria - Send urine for culture - Begin treatment with Macrobid 100 mg BID for 5 days - Patient education for prevention given - UA DIP, URINE (POC) - URINE CULTURE 2. Acute vaginitis - ICD9: 616.10, ICD10: N76.0 Patient self swab, declined exam, denies exposure to STD's Will call if treatment needed - NATALI / TRICHOMONAS AMPLIFICATION - BACTERIAL VAGINOSIS AMPLIFICATION Diagnosis and treatment plan were discussed and questions were answered to the patient's satisfaction. Pt acknowledged understanding of concepts and follow up plan. Specific signs and symptoms that would indicate the need for higher level of care were discussed in detail warranting prompt ER evaluation. Annia Balbuena APRN.[facility] 06-21-2021 History of Present illness Narrative Rheumatology Note CC: CTS, FMS RecalI: Aminah Mallory is a 35 year old female w FMS, CTS, restless leg 10 years of neck, shoulders, arms; some pains in legs but minor. Tylenol- helps somewhat. Motrin Lyrica and jess in the past helped. Not on now. Dr Carias was giving injections wrists for CTS and dequervain's initially helped but not recently. OSH EMG in past w CTS. Presents w daugther infant Isaac 2 months w her today. Fiance does night feedings. Not working now. Anxiety/deprssion well controlled on paxil. Improved after stopped breast feeding. HPI: Called twice, no answer, unable to leave VM. Has to be rescheduled. As discussed in last mychart, I can't keep refilling her meds without yearly appt. Laurie Jaffe MD Documentation: Mode: Telephone Patient Patient Work Phone: Patient Cell Phone: Preferred phone: [phone] Consent: I confirmed patient understanding of the risks and benefits of telehealth visits and obtained consent to proceed with the telehealth visit. Location of Patient: Home of patient documented in this encounter [facility] 06-16-2021 Miscellaneous Notes This is already approved, cancelling the PA request. PA Approved til November 2021 it is in the media tab Received PA request via [employer]. Scanned into POW. Initiated PA using [employer]. Routing to PA pool. documented in this encounter [facility] 05-29-2021 Hospital Discharge instructions Patient Education 05/28/2021 22:08:16 Radius And Ulna Fracture, No Reduction Required Forearm Fracture You have a break or fracture of both bones in the forearm. The bones are not out of place and will not need to be set. This fracture usually takes 6 to 12 weeks to heal completely. Initial treatment is with a splint or cast. Home care Keep your arm raised to reduce pain and swelling. When sitting or lying down, raise your arm above heart level. You can do this by placing your arm on a pillow that rests on your chest or on a pillow at your side. This is most important during the first 48 hours after injury. Apply an ice pack over the injured area for 15 to 20 minutes every 3 to 6 hours. You should do this for the first 24 to 48 hours. To make a cold pack, put ice cubes in a plastic bag that seals at the top. Wrap the bag in a clean, thin towel or cloth. Never put ice or an ice pack directly on the skin. As the ice melts, be careful that the cast or splint doesn t get wet. You can place the ice pack inside the sling and directly over the splint or cast. Keep using ice packs as needed to ease pain and swelling. Keep the cast or splint completely dry at all times. Bathe with your cast or splint out of the water. Protect it with 2 large plastic bags, one outside of the other, each taped with duct tape at the top end or use rubber bands. If a fiberglass splint or cast gets wet, you can dry it with a inspector hairspring truing on a cool setting. You may use [id number] pain medicine to control pain, unless another pain medicine was prescribed. If you have chronic liver or kidney disease or ever had a stomach ulcer or GI bleeding, talk with your healthcare provider before using these medicines. Follow-up care Follow up with your healthcare provider, or as advised. If a splint was applied, it may be changed to a cast during your follow-up visit. If X-rays were taken, you will be told of any new findings that may affect your care. When to seek medical advice Call your healthcare provider right away if any of the following occur: The plaster cast or splint becomes wet or soft The fiberglass cast or splint remains wet for more than 24 hours Increased tightness, looseness, or pain occurs under the cast or splint Fingers become swollen, cold, blue, numb or tingly The cast or splint develops a bad odor [id number] [employer]. [address] [place] [address]. All rights reserved. This information is not intended as a substitute for professional medical care. Always follow your healthcare professional's instructions. Follow Up Care 05/28/2021 20:43:03 With:LULU COE Address: [address] [place] [address], [address] [place] [address]- [phone] Business (1) When:3-5 days Comments:Keep arm in splint, you may use sling for comfort. Use Tylenol ibuprofen ice for pain. Oxycodone as needed for breakthrough pain. Follow closely with orthopedics. Return if worsening severe pain numbness weakness in the hand or other concerning symptoms. [facility] 03-10-2021 Note HNO ID: [id number] Author: Fátima Cyr PA-C Service: ? Author Type: Physician Concrete Pointer Type: Progress Notes Filed: 03/17/2021 5:56 PM Note Text: Aminah Mallory is a 35 year old who presents with her toddler for her annual gynecologic exam. 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 Possibly began after of her daughter, 3 yr ago she believes. Currently mild pain, can become severe sharp pain - doubled over. Happening nearly daily. Also c/o pain and cramping related to periods and ovulation. Never stopped lactating after giving - self expresses in shower ~ once a week. Tried to breast feed for ~3-4 mos with difficulty, then stopped but still producing milk. Gets breast fullness. Seeing endocrinology. 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 Menses: cycles every 28-30 days and 3 days of flow. cyclic symptoms: breast tenderness, bloating/abdominal swelling, irritability, moodiness, anxiety, pelvic pain Cramping: Yes, moderate Contraception: not currently sexually active (for about 2+ years)- not interested in starting HPV vaccine: No Last Pap: 2019 normal HPV: 2020 negative History of abnormal pap: Yes Last mammogram: never Perform monthly Self Breast Exam: no Family History of Uterine or Ovarian Cancer: no Family History of Breast Cancer: no Sexually active: not currently, History of STDS: HPV, Patient concerns for STD exposure: No., Exercise: physical active but not regularly exercising Calcium/Vitamin D intake: diet sufficient Past medical, surgical, social history, medications and allergies reviewed and updated. PAST MEDICAL HISTORY Diagnosis Date - Anxiety 03/15/2006 - Back pain - Fibromyalgia - RELL (generalized anxiety disorder) 06/22/2015 - GERD (gastroesophageal reflux disease) - Hypertension - Insomnia - PTSD (post-traumatic stress disorder) 06/22/2015 - Tachycardia PAST SURGICAL HISTORY Procedure Laterality Date - CHOLECYSTECTOMY HX - REMOVAL CYST HYGROMA right bicep and neck cyst removed Social History Tobacco Use - Smoking status: Former Smoker Packs/day: 0.10 Years: 15.00 Pack years: 1.50 Types: Cigarettes - Smokeless tobacco: Never Used Vaping Use - Vaping Use: Never used Substance Use Topics - Alcohol use: No Comment: none - Drug use: No Current Outpatient Medications Medication Sig Dispense Refill - pregabalin 165 mg Tb24 Take 3 tablets by mouth once daily. - PARoxetine (PAXIL) 20 mg tablet Take 20 mg by mouth once daily. - buPROPion XL (WELLBUTRIN XL) 150 mg 24 hr tablet Take 150 mg by mouth once daily. - escitalopram oxalate (LEXAPRO) 10 mg tablet Take 10 mg by mouth once daily. (Patient not taking: Reported on 03/10/2021 ) No current facility-administered medications for this visit. ALLERGIES Allergen Reactions - Benzodiazepines Unknown Increase anxiety - Diflucan [Fluconazo* Mental Status Change - Quinolones Mental Status Change - Steroids [Corticost* Other: See Comments Panic attack REVIEW OF SYSTEMS Abdomen: No abdominal pain, vomiting, diarrhea, or constipation. No bloating, early satiety, indigestion, or increased flatulence. (+) frequent nausea, no clear precipitating factors. Bladder: No dysuria, gross hematuria, urinary frequency, urinary urgency; (+) stress incontinence. Breast: No breast lumps, overlying skin changes, redness or skin retraction. (+) galactorrhea EXAM: BP 118/74 Ht 5' 4 (1.626 m) Wt 184 lb (83.5 kg) LMP 02/22/2021 BMI 31.58 kg/m? GENERAL: pleasant, female in no apparent distress HEENT: Normocephalic, atraumatic, mucus membranes moist and no lesions NECK: Supple, full range of motion, no adenopathy and thyroid normal DERMATOLOGY: Normal, non-icteric and non-hirsute, + hyperpigmented symmetric mole noted left side mons- no change per pt BREAST: soft, symmetric, no dominant mass, normal nipple-areolar complex, no lymphadenopathy and no nipple discharge; + tenderness bilaterally CHEST: Clear to auscultation, Normal inspiratory effort, Regular rate and rhythm, No murmurs, clicks, rubs or gallops ABDOMEN: soft and no masses, + mild subjective generalized tenderness PELVIC: external genitalia normal, normal Bartholin's glands, urethra, Bonaparte's glands, no vulvar lesions, no cervical lesions, good vaginal support, physiologic discharge present, normal appearing perineal body and perianal region BIMANUAL: uterus normal size, shape and consistency and no adnexal masses, + mild subjective generalized tenderness uterus, not of adnexa b/l RECTOVAGINAL: deferred. NEURO: alert and oriented x3,exam grossly non-focal EXTREMITIES: normal ASSESSMENT/PLAN: Encounter Diagnosis ICD-10-CM 1. Women's annual routine gynecological examination Z01.419 2. Chronic pelvic pain in female R10.2 CONSULT TO GEARMAN PELVIC PAIN G89.29 US FEMALE PELVIS TRANSVAG 3. Nipple discharge N64.52 Common and less common etiologie (more content not included)... [facility] 02-14-2021 Note PROCEDURE: US BREAST COMPLETE UNILATERAL dated 02/14/2021 3:40 PM ORNAMENTAL PAINTER CLINICAL HISTORY: Female 35 years of age. Right breast pain, rule out abscess;BREAST MASS TECHNIQUE: Ultrasound was performed of the right breast. PREVIOUS STUDIES: None Available FINDINGS: There is no fluid collection. IMPRESSION: No abscess. Electronically signed by: Leonarda Kapadia MD 02/14/2021 7:22 PM ORNAMENTAL PAINTER Technologist: BB Dictated By: LEONARDA KAPADIA MD Signed By: LEONARDA KAPADIA MD Signed Out: 02/14/21 20:22:37 [facility] Evaluation + Plan note No data available for this section [facility] Diagnosis Chronic GERD- Primary Anxiety Anxiety state, unspecified [facility] Diagnosis Fibromyalgia- Primary Unspecified myalgia and myositis Arthralgia of multiple sites, bilateral [facility] Diagnosis Nausea- Primary Nausea alone [facility] Consultation (Routine) - Pending Review Specialty Diagnoses / Procedures Referred By Talon cabezas Referred To Contact Gastroenterology Diagnoses Chronic GERD Procedures [place] OFFICE/OUTPATIENT [facility] 60-74 MINUTES Yessica Ramires MD [address] [place] [id number] [facility] [address] [facility] [address] [place] [address] Referral ID Status Reason Start Date Expiration Date Visits Requested Visits Authorized [id number] Pending Review Specialty Services Required 06/16/2022 06/16/2023 1 1 [facility] Consultation (Routine) - Pending Review Specialty Diagnoses / Procedures Referred By Contfernando cabezas Referred To Contact Rheumatology Diagnoses Fibromyalgia Arthralgia of multiple sites, bilateral Procedures [place] OFFICE/OUTPATIENT [facility] 60-74 MINUTES Yessica Ramires MD [address] [place] [address] [facility] [address] [place] [address] Referral ID Status Reason Start Date Expiration Date Visits Requested Visits Authorized [id number] Pending Review Specialty Services Required 11/16/2022 11/16/2023 1 1 [facility] Summary Purpose Family History No Family History Records FoundNo Family History Records FoundNo Family History Records FoundNo Family History Records FoundNo Family History Records FoundNo Family History Records FoundNo Family History Records Found Advance Directives No Advanced Directives Records FoundLatest Code Status on File Code Status Date Activated Date Inactivated Comments Full Code 02/01/2019 4:58 AM 02/03/2019 2:23 PM Full Code 01/30/2019 8:08 PM 02/01/2019 4:58 AM Additional Source Comments INFORMATION SOURCE (unrecogn ized section and content) DATE CREATED AUTHOR AUTHOR'S ORGANIZ ATION 02/20/2019 [facility] DATE CREATED AUTHOR AUTHOR'S ORGANIZ ATION 02/20/2021 [facility] DATE CREATED AUTHOR AUTHOR'S ORGANIZ ATION 06/13/2021 [facility] DATE CREATED AUTHOR AUTHOR'S ORGANIZ ATION 10/13/2021 [facility] DATE CREATED AUTHOR AUTHOR'S ORGANIZ ATION 11/18/2022 [employer] [facility] DATE CREATED AUTHOR AUTHOR'S ORGANIZ ATION 02/05/2023 [facility] [facility] Care Teams (unrecognized sec tion and content) Surgical Technologist Relationship Specialty Start Date End Date Laurie Jaffe MD [address] [place] [address] Physician Rheumatology 12/10/19 Salena Emmanuel, NEON SIGN SERVICER-DISK SHARPENER [address] [place] [address] [place] [address] TITLE VEHICLE SERVICE ATTENDANT Anesthesiology 12/10/19 Shahzad Will MD [address] [place] [address] [place] [address] Physician Gastroenterology 12/10/19 Ellen Rodas MD [address] [place] [address] Physician Maternal/ Medicine 12/10/19 Consuelo Puente NEON SIGN SERVICER-DISK SHARPENER [address] [place] [address] [place] [address] TITLE VEHICLE SERVICE ATTENDANT Psychiatry 12/10/19 Bill Ambriz MD [address] [place] [address] [place] [address] Physician Neurology 12/10/19 Christiano Jenkins MD [address] [place] [address] Physician Obstetrics/Gynecology 12/10/19 Yolis Fonseca, OTR/L [address] [place] [address] Occupational Therapist Physical Medicine & Rehab/PM&R 12/10/19 Lasha Carias MD [address] [place] [phone] Physician Orthopaedic Hand Service 12/10/19 Donna No MD [address] [place] [address] [place] [address] Physician Neurology 12/10/19 Elaine Verdin LSW [address] [place] [address] [place] [address] Scalp Treatment Specialist Social Work 02/07/20 Charanjit Richter MD [address] [place] [address] [place] [address] Physician Neurology 04/10/20 Tigre Mcclellan MD [address] [place] [address] [place] [address] Physician Endocrinology/Medicine 03/06/21 Surgical Technologist Relationship Specialty Start Date End Date Laurie Jaffe MD [address] [place] [address] Physician Rheumatology 12/10/19 Salena Emmanuel NEON SIGN SERVICER-DISK SHARPENER [address] [place] [address] [place] [address] TITLE VEHICLE SERVICE ATTENDANT Anesthesiology 12/10/19 Shahzad Will MD [address] [place] [address] [place] [address] Physician Gastroenterology 12/10/19 Ellen Rodas MD [address] [place] [address] Physician Maternal/ Medicine 12/10/19 Consuelo Puente NEON SIGN SERVICER-DISK SHARPENER [address] [place] [address] [place] [address] TITLE VEHICLE SERVICE ATTENDANT Psychiatry 12/10/19 Bill Ambriz MD [address] [place] [address] [place] [address] Physician Neurology 12/10/19 Christiano Jenkins MD [address] [place] [address] Physician Obstetrics/Gynecology 12/10/19 Yolis Fonseca, OTR/L [address] [place] [address] Occupational Therapist Physical Medicine & Rehab/PM&R 12/10/19 Lasha Carias MD [address] [place] [phone] Physician Orthopaedic Hand Service 12/10/19 Donna No MD [address] [place] [address] [place] [address] Physician Neurology 12/10/19 Elaine Verdin LSW [address] [place] [address] [place] [address] Scalp Treatment Specialist Social Work 02/07/20 Charanjit Richter MD [address] [place] [address] [place] [address] Physician Neurology 04/10/20 Tigre Mcclellan MD [address] [place] [address] [place] [address] Physician Endocrinology/Medicine 03/06/21 Surgical Technologist Relationship Specialty Start Date End Date Laurie Jaffe MD [address] [place] [address] Physician Rheumatology 12/10/19 Salena Emmanuel, GEOVANNY-DISK SHARPENER [address] [place] [address] [place] [address] TITLE VEHICLE SERVICE ATTENDANT Anesthesiology 12/10/19 Shahzad Will MD [address] [place] [address] [place] [address] Physician Gastroenterology 12/10/19 Ellen Rodas MD [address] [place] [address] Physician Maternal/ Medicine 12/10/19 Consuelo Puente APRN-DISK SHARPENER [address] [place] [address] [place] [address] TITLE VEHICLE SERVICE ATTENDANT Psychiatry 12/10/19 Bill Ambriz MD [address] [place] [address] [place] [address] Physician Neurology 12/10/19 Christiano Jenkins MD [address] [place] [address] Physician Obstetrics/Gynecology 12/10/19 Yolis Fonseca, OTR/L [address] [place] [address] Occupational Therapist Physical Medicine & Rehab/PM&R 12/10/19 Lasha Carias MD [address] [place] [phone] Physician Orthopaedic Hand Service 12/10/19 Donna No MD [address] [place] [address] [place] [address] Physician Neurology 12/10/19 Elaine Verdin LSW [address] [place] [address] [place] [address] Scalp Treatment Specialist Social Work 02/07/20 Charanjit Richter MD [address] [place] [address] [place] [address] Physician Neurology 04/10/20 Tigre Mcclellan MD [address] [place] [address] [place] [address] Physician Endocrinology/Medicine 03/06/21 Surgical Technologist Relationship Specialty Start Date End Date Yessica Ramires MD [address] [place] [address] PCP - General Family Medicine 06/16/22 Surgical Technologist Relationship Specialty Start Date End Date Yessica Ramires MD [address] [place] [address] PCP - General Family Medicine 06/16/22 Surgical Technologist Relationship Specialty Start Date End Date Yessica Ramires MD PCP - General Family Medicine 06/16/22 Surgical Technologist Relationship Specialty Start Date End Date Yessica Ramires MD [address] [place] [address] PCP - General Family Medicine 11/16/22 Surgical Technologist Relationship Specialty Start Date End Date Yessica Ramires MD [address] [place] [address] [address] [place] [address] PCP - General Family Medicine 11/16/22 Surgical Technologist Relationship Specialty Start Date End Date Yessica Ramires MD [address] [facility] [address] [place] [address] PCP - General Family Medicine 11/16/22 Reason for Visit (unrecogniz ed section and content) Reason Comments New Patient Reason Onset Date Comments Med Refill 06/22/2022 Reason Onset Date Comments Medication Question 07/29/2022 FOR RECORDS PERTAINING TO PATIENTS WHO ARE OR HAVE BEEN ENROLLED IN A CHEMICAL DEPENDENCY/SUBSTANCEABUSE PROGRAM, SOME INFORMATION MAY BE OMITTED. This clinical summary was aggregated from multiple sources. Caution should be exercised in using it in the provision of clinical care. This summary normalizes information from multiple sources, and as a consequence, information in this document may materially change the coding, format and clinical context of patient data. In addition, data may be omitted in some cases. CLINICAL DECISIONS SHOULD BE BASED ON THE PRIMARY CLINICAL RECORDS. [facility] [employer] [facility]. provides no warranty or guarantee of the accuracy or completeness of information in this document.
[2023-03-14 11:49] LABS: Free T3 1.1 pg/mL (2.18-3.98)
[2023-03-22 15:07] LABS: Anti-Thyroglobulin AB 3.1 IU/mL (0.0-0.9); Thyroglobulin RIA < 2.0 ng/mL (.)
== END | disposition home or self-care (01) ==
LOC: LAB 10:20
PROVIDERS: Internal Medicine Endocrinology, Diabetes & Metabolism; Surgery; PCP Internal Medicine; Referring Provider Internal Medicine; Visit Provider Internal Medicine
DX: E89.0 Postprocedural hypothyroidism (principal); D35.00 Benign neoplasm of unspecified adrenal gland
CPT/HCPCS: 36415; 82310; 82533; 82627; 84432; 84439; 84443; 84481; 86800; 82626

== ENCOUNTER → 2023-03-29 | Outpatient (CLI) | payer MEDICAID, SELFPAY ==
[2023-03-29 15:18] LABS: T4 Free Direct 0.96 ng/dL (0.76-1.46)
== END | disposition home or self-care (01) ==
LOC: LAB 13:40
PROVIDERS: PCP Internal Medicine; Referring Provider Internal Medicine Endocrinology, Diabetes & Metabolism; Visit Provider Internal Medicine Endocrinology, Diabetes & Metabolism
DX: E89.0 Postprocedural hypothyroidism (principal)
CPT/HCPCS: 36415; 82310; 84439; 84443

== ENCOUNTER → 2023-05-03 | Outpatient (CLI) | payer MEDICAID, SELFPAY ==
--- OUTSIDE RECORDS SUMMARY | 2023-05-03 11:06 | XMS RPT_ITS | CCD ---
Author Name Unknown Address [address] [place] [address] Organization [facility] Care Team Providers Care Catering Staff Member Name Role Phone NED PERRY Attending Unavailable Laurie Jaffe MD Unavailable [phone] Moga SIGN ERECTOR AND REPAIRER-SKATING CARHOP, Crystal Unavailable Suman ROBERSON, Shahzad Unavailable Ellen Rodas MD Unavailable Pron SIGN ERECTOR AND REPAIRER-SKATING CARHOP, Consuelo Unavailable [phone] Bill Ambriz MD Unavailable [phone] Alice ROBERSON, Christiano Tucker Unavailable Protano OTR/L, Yolis Unavailable [phone] Lasha Carias MD Unavailable [phone] Oneal ROBERSON, Donna Unavailable Lambert TREVINO, Elaine Unavailable [phone] Charanjit Richter MD Unavailable [phone] Eleuterio ROBERSON, Tigre Unavailable [phone] PHYSICIAN, NONE Primary Care Physician Unavailab Laurie Espana MD Unavailable [phone] Moga SIGN ERECTOR AND REPAIRER-SKATING CARHOP, Crystal Unavailable [phone] Suman ROBERSON, Shahzad Unavailable Ellen Rodas MD Unavailable Pron SIGN ERECTOR AND REPAIRER-SKATING CARHOP, Consuelo Unavailable [phone] Katina ROBERSON, Bill Unavailable Alice ROBERSON, Christiano Tucker Unavailable Protano OTR/L, Yolis Unavailable Aretha ROBERSON, Lasha PizanoRaudel Unavailable Oneal ROBERSON, Donna Unavailable Lambert BHATTIW, Elaine Unavailable Neelam ROBERSON, Charanjit Unavailable [phone] Eleuterio ROBERSON, Tigre Unavailable Ike ROBERSON, Yessica [...] adverse reactions to drug (disorder) [address] [facility] Repository (1 source) Corticosteroids; Translations: [CORTICOSTEROIDS (GLUCOCORTICOIDS )] Propensity to adverse reactions to drug (disorder) [address] [facility] (1 source) Fluconazole; Translations: [FLUCONAZOLE] Drug Allergy [address] [facility] (13 sources) Quinolones (Antibiotic); Translations: [QUINOLONES] Propensity to adverse reactions to drug (disorder) [address] [facility] (12 sources) Corticosteroids; Translations: [CORTICOSTEROIDS ] Propensity to adverse reactions to drug 7 Headache [facility] (5 sources) Other (Review Comments!); Translations: [OTHER (REVIEW COMMENTS!)] Propensity to adverse reactions to drug 1 Agitation [facility] (7 sources) Amoxicillin Drug Allergy 3 [facility] Medications Current Medications Medication Drug Class(es) Dates [...] 162.6 cm Yessica Ramires MD Work Phone: [facility] 06-16-2022 10:54-0400 Body mass index (BMI) [Ratio] 24.72 kg/m2 Yessica Ramires MD Work Phone: [employer] 06-16-2022 10:54-0400 Body weight 65.32 kg Yessica Ramires MD Work Phone: [facility] 06-16-2022 10:54-0400 Diastolic blood pressure 60 mm[Hg] Yessica Ramires MD Work Phone: [facility] 06-16-2022 10:54-0400 Heart rate 109 /min Yessica Ramires MD Work Phone: [facility] 06-16-2022 10:54-0400 SaO2% (BldA) [Mass fraction] 98 % Yessica Ramires MD Work Phone: [facility] 06-16-2022 10:54-0400 Systolic blood pressure 112 mm[Hg] Yessica Ramires MD Work Phone: [facility] 05-28-2021 20:43-0400 Body height 162.[address] KAVITA VAUGHAN MD [facility] 05-28-2021 20:43-0400 Body temperature 97.88 [degF] DR KAVITA VAUGHAN MD [facility] 05-28-2021 20:43-0400 Body weight 81.[address] KAVITA VAUGHAN MD [facility] 05-28-2021 20:43-0400 Diastolic blood pressure 77 mm[Hg] DR KAVITA VAUGHAN MD [facility] 05-28-2021 20:43-0400 Heart rate 87 /min DR KAVITA VAUGHAN MD [facility] 05-28-2021 20:43-0400 Respiratory rate 18 /min DR KAVITA VAUGHAN MD [facility] 05-28-2021 20:43-0400 Systolic blood pressure 131 mm[Hg] DR KAVITA VAUGHAN MD [facility] Encounters Encounter Date Encounter Type Care Provider Facility Start: 01-11-2023 End: 01-11-2023 ambulatory YESSICA RAMIRES [facility] Start: 01-11-2023 End: 01-11-2023 Office outpatient visit 15 minutes Yessica Ramires MD Work Phone: [facility] Family Medicine Procedures Date Procedure Procedure Detail Performing Clinician Start: 03-11-2019 Microscopic observat ion [Identifier] in Cervix by Cyto stain Hanna Qureshi SIGN ERECTOR AND REPAIRER-SKATING CARHOP Work Phone: Start: 06-09-2018 Antibody screen NED LIRIANO Plan of Treatment Date Care Activity Detail Author Start: 2036 Shingles (RZV) Vaccine (1 of 2) Shingles (RZV) Vaccine (1 of 2) [facility] Start: 11-15-2028 DTaP/Tdap/Td Vaccines (2 - Td or Tdap) DTaP/Tdap/Td Vaccines (2 - Td or Tdap) [facility] Start: 11-15-2028 [facility] Start: 01-11-2023 End: 01-12-2024 CBC W Auto Differential panel - Blood CBC auto differential Lab Routine Nausea Expected: 01/11/2023 (Approximate), Expires: 01/12/2024 [facility] Work Phone: Immunizations Immunization Date Immunization Notes Care Provider Jovani [facility] 02-17-2022 influenza virus vacc ine, unspecified formulation Yessica Ramires MD Work Phone: [facility] 12-06-2018 influenza, injectabl e, quadrivalent, preservative free Hanna Qureshi SIGN ERECTOR AND REPAIRER-SKATING CARHOP Work Phone: [facility] 12-06-2018 influenza virus vacc ine, unspecified formulation Hanna Qureshi SIGN ERECTOR AND REPAIRER-SKATING CARHOP Work Phone: [facility] 11-15-2018 tetanus toxoid, redu evelyn diphtheria toxoid, and acellular pertussis vaccine, adsorbed Hanna Qureshi SIGN ERECTOR AND REPAIRER-SKATING CARHOP Work Phone: [facility] Payers Date Payer Category Payer Medicaid [id number] 2021 Medicaid [id number] 2021 Medicaid [id number] 1985 Unknown [id number] Social History Date Type Detail Facility Start: 07-02-2018 End: 06-16-2022 Tobacco smoking status [facility] Work Phone: Start: 07-02-2018 Tobacco use and [...] Start: 05-28-2021 Never smoked t obacco (finding) [facility] Sex Assigned At Female [facility] End: 02-03-2022 History of tobacco use Current smoker [facility] End: 02-03-2022 History of tobacco use Cigarette Smoker [facility] Start: 06-16-2022 Cigarettes smoked current (pack per day) - Reported 0.5 [facility] Start: 06-16-2022 Tobacco use and exposure Smokeless tobacco non-user [facility] Start: 06-06-2022 End: 06-16-2022 Exposure to SARS-CoV-2 (event) Not sure [facility] Start: 06-16-2022 Tobacco use panel [facility] Clinical Notes 02-14-2021 to 01-11-2023 Yessica Ramires MD - 01/11/2023 11:40 AM Francis Ramires MD - 11/16/2022 11:40 AM EDTTelephone Encounter - Yessica Ramires MD - 08/02/2022 1:20 PM EDT Note Date & Type Note Facility 01-11-2023 History of Present illness Narrative Images from the original note were not included. [facility] [address] [facility] [address] Dept: [phone] Dept Loc: [phone] Reason for Visit: nausea Assessment and Plan [...] Yessica Ramires MD documented in this encounter [facility] 11-16-2022 History of Present illness Narrative Images from the original note were not included. [facility] MED[facility] [address] [place] [address] [address] [facility] [address] Dept: [phone] Dept Loc: [phone] Reason for Visit: arthralgia Patient was seen [...] stated that they are currently in the [facility]. If the patient is a minor, permission has been obtained by the parent or guardian for the patient to receive medical care at this visit. Assessment and Plan 1. Fibromyalgia - EITAN - Sedimentation rate, automated - Rheumatoid factor - CBC auto differential - Comprehensive metabolic panel - [facility] 2. Arthralgia of multiple sites, bilateral - EITAN - Sedimentation rate, automated - Rheumatoid factor - CBC auto differential - Comprehensive metabolic panel - [facility] current treatment plan is effective, no [...] was diagnosed she states at [facility] by radiographic technologist with fibromyalgia she is requesting a radiographic technologist closer to home. She states that she [...] for: CHOLHDLRATIO Imaging/Testing: No image results found. Yessiac Ramires MD documented in this encounter [facility] 08-02-2022 Telephone encounter Note Yes I agree that is fine. Thank you [facility] 08-02-2022 Miscellaneous Notes Yes I agree that [...] triager answers question Protocols used: Medication Question [id number] documented in this encounter [facility] 07-29-2022 Telephone encounter Note Images from the [...] triager answers question Protocols used: Medication Question [id number] [facility] 06-23-2022 Telephone encounter Note Last seen:06/16/22 Scheduled:n/a [facility] 06-23-2022 Miscellaneous Notes Last seen:06/16/22 Scheduled:n/a documented in this encounter [facility] 06-16-2022 History of Present illness Narrative Images from the original note were not included. [facility] [address] [facility] [address] Dept: [phone] Dept Loc: [phone] Reason for Visit: New Patient Assessment and Plan 1. Chronic GERD continue omeprazole 20 mg twice daily I do recommend patient get a scope to further evaluate this. Patient also states she uses Maalox mnvw-isg-vasstrw would like a prescription for this. I would recommend she only take this as needed. - [facility] 2. Anxiety Patient currently seeing psychiatrist. [...] Yessica Ramires MD documented in this encounter [facility] 10-09-2021 Note HNO ID: [id number] Author: Annia Balbuena APRN.SKATING CARHOP Service: ? Author Type: Nurse Practitioner Type: Progress Notes Filed: 10/09/2021 3:16 PM Note Text: Subjective The history is provided by the patient. No english language learner teacher was used. HPI Aminah Mallory is a [...] have confirmed and edited as necessary, the [facility] Review of Systems Constitutional: Negative for [...] detail warranting prompt ER evaluation. Annia Balbuena APRN.[facility] 06-21-2021 History of Present illness Narrative [...] in past w CTS. Presents w daugther Isaac 2 months w her today. Fiance [...] Work Phone: Patient Cell Phone: Preferred phone: [phone] Consent: I confirmed patient understanding of the risks and benefits of telehealth visits and obtained consent to proceed with the telehealth visit. Location of Patient: Home of patient documented in this encounter [facility] 06-16-2021 Miscellaneous Notes This is already approved, cancelling the PA request. PA Approved til November 2021 it is in the media tab Received PA request via [employer]. Scanned into [employer]. Initiated PA using [employer]. Routing to PA pool. documented in this encounter [facility] 05-29-2021 Hospital Discharge instructions Patient Education 05/28/2021 [...] wet, you can dry it with a supervisor hairspring fabrication on a cool setting. You may use opup-bst-qmsmfzz pain medicine to control pain, unless another [...] cast or splint develops a bad odor [phone] [employer]. [address] [place] [address]. All rights reserved. This information is not intended as a substitute for professional medical care. Always follow your healthcare professional's instructions. Follow Up Care 05/28/2021 20:43:03 With:LULU COE Address: [address] [place] [address], [address] [place] [address]- [phone] Business (1) When:3-5 days Comments:Keep arm in splint, you may use sling for comfort. Use Tylenol ibuprofen ice for pain. Oxycodone as needed for breakthrough pain. Follow closely with orthopedics. Return if worsening severe pain numbness weakness in the hand or other concerning symptoms. [facility] 03-10-2021 Note HNO ID: [id number] Author: Fátima Cyr PA-C Service: ? Author Type: Physician Press Breaker Type: Progress Notes Filed: 03/17/2021 5:56 PM Note Text: Aminah Mallory is a 35 year old who presents with her toddler for her annual gynecologic exam. SUPERINTENDENT CUSTODIAN JANITOR complaints: pelvic pain. Possibly began after of [...] external genitalia normal, normal Bartholin's glands, urethra, Woodsdale's glands, no vulvar lesions, no cervical lesions, [...] pelvic pain in female R10.2 CONSULT TO SUPERINTENDENT CUSTODIAN JANITOR PELVIC PAIN G89.29 US FEMALE PELVIS TRANSVAG 3. Nipple discharge N64.52 Common and less common etiologie (more content not included)... [facility] 02-14-2021 Note PROCEDURE: US BREAST COMPLETE UNILATERAL dated 02/14/2021 3:40 PM INSULATOR APPRENTICE CLINICAL HISTORY: Female 35 years of age. Right breast pain, rule out abscess;BREAST MASS TECHNIQUE: Ultrasound was performed of the right breast. PREVIOUS STUDIES: None Available FINDINGS: There is no fluid collection. IMPRESSION: No abscess. Electronically signed by: Leonarda Kapadia MD 02/14/2021 7:22 PM INSULATOR APPRENTICE Technologist: BB Dictated By: LEONARDA KAPADIA MD Signed By: LEONARDA KAPADIA MD Signed Out: 02/14/21 20:22:37 [facility] Evaluation + Plan note No data available for this section [facility] Diagnosis Chronic GERD- Primary Anxiety Anxiety state, unspecified [facility] Fibromyalgia- Primary Unspecified myalgia and myositis Arthralgia of multiple sites, bilateral [facility] Diagnosis Nausea- Primary Nausea alone [facility] Consultation (Routine) - Pending Review Specialty Diagnoses / Procedures Referred By Talon cabezas Referred To Contact Gastroenterology Diagnoses Chronic GERD Procedures NM OFFICE/OUTPATIENT [facility] 60-74 MINUTES Yessica Ramires MD [address] [place] [address] [facility] [address] [facility] [address] [place] [address] Referral ID Status Reason Start Date Expiration Date Visits Requested Visits Authorized [id number] Pending Review Specialty Services Required 06/16/2022 06/16/2023 1 1 [facility] (narrative)* Consultation (Routine) - Pending Review Specialty Diagnoses / Procedures Referred By Contfernando cabezas Referred To Contact Rheumatology Diagnoses Fibromyalgia Arthralgia of multiple sites, bilateral Procedures NM OFFICE/OUTPATIENT [facility] 60-74 MINUTES Yessica Ramires MD [address] [place] [address] [facility] [address] [place] [address] Referral ID Status Reason Start Date Expiration Date Visits Requested Visits Authorized [id number] Pending Review Specialty Services Required 11/16/2022 11/16/2023 [facility] Purpose Family History No Family History [...] DATE CREATED AUTHOR AUTHOR'S ORGANIZ ATION 02/20/2019 [facility] DATE CREATED AUTHOR AUTHOR'S ORGANIZ ATION 02/20/2021 [facility] DATE CREATED AUTHOR AUTHOR'S ORGANIZ ATION 06/13/2021 [facility] ([place]) DATE CREATED AUTHOR AUTHOR'S ORGANIZ ATION 10/13/2021 [facility] DATE CREATED AUTHOR AUTHOR'S ORGANIZ ATION 11/18/2022 [employer] DATE CREATED AUTHOR AUTHOR'S ORGANIZ ATION 02/05/[address] [employer] [facility] [address] [facility] Care Teams (unrecognized sec tion and content) Catering Staff Member Relationship Specialty Start Date End Date Laurie Jaffe MD [address] [place] [address] Physician Rheumatology 12/10/19 Salena Emmanuel, SIGN ERECTOR AND REPAIRER-SKATING CARHOP [address] [place] [address] [place] [address] HOME HOUSEKEEPER Anesthesiology 12/10/19 Shahzad Will MD [address] [place] [address] [place] [address] Physician Gastroenterology 12/10/19 Ellen Rodas MD [address] [place] [address] Physician Maternal/ Medicine 12/10/19 Consuelo Puente SIGN ERECTOR AND REPAIRER-SKATING CARHOP [address] [place] [address] [place] [address] HOME HOUSEKEEPER Psychiatry 12/10/19 Bill Ambriz MD [address] [place] [address] [place] [address] Physician Neurology 12/10/19 Christiano Jenkins MD [address] [place] [address] Physician Obstetrics/Gynecology 12/10/19 Yolis Fonseca, OTR/L [address] [place] [address] Occupational Therapist Physical Medicine & Rehab/PM&R 12/10/19 Lasha Carias MD [address] [place] [phone] Physician Orthopaedic Hand Service 12/10/19 Donna No MD [address] [place] [address] [place] [address] Physician Neurology 12/10/19 Elaine Verdin LSW [address] [place] [address] [place] [address] Admin Assistant Social Work 02/07/20 Charanjit Richter MD [address] [place] [address] [place] [address] Physician Neurology 04/10/20 Tigre Mcclellan MD [address] [place] [address] [place] [address] Physician Endocrinology/Medicine 03/06/21 Catering Staff Member Relationship Specialty Start Date End Date Laurie Jaffe MD [address] [place] [address] Physician Rheumatology 12/10/19 Salena Emmanuel SIGN ERECTOR AND REPAIRER-SKATING CARHOP [address] [place] [address] [place] [address] HOME HOUSEKEEPER Anesthesiology 12/10/19 Shahzad Will MD [address] [place] [address] [place] [address] Physician Gastroenterology 12/10/19 Ellne Rodas MD [address] [place] [address] Physician Maternal/ Medicine 12/10/19 Consuelo Puente SIGN ERECTOR AND REPAIRER-SKATING CARHOP [address] [place] [address] [place] [address] HOME HOUSEKEEPER Psychiatry 12/10/19 Bill Ambriz MD [address] [place] [address] [place] [address] Physician Neurology 12/10/19 Christiano Jenkins MD [address] [place] [address] Physician Obstetrics/Gynecology 12/10/19 Yolis Fonseca, OTR/L [address] [place] [address] Occupational Therapist Physical Medicine & Rehab/PM&R 12/10/19 Lasha Carias MD [address] [place] [phone] Physician Orthopaedic Hand Service 12/10/19 Donna No MD [address] [place] [address] [place] [address] Physician Neurology 12/10/19 Elaine Verdin LSW [address] [place] [address] [place] [address] Admin Assistant Social Work 02/07/20 Charanjit Richter MD [address] [place] [address] [place] [address] Physician Neurology 04/10/20 Tigre Mcclellan MD [address] [place] [address] [place] [address] Physician Endocrinology/Medicine 03/06/21 Catering Staff Member Relationship Specialty Start Date End Date Laurie Jaffe MD [address] [place] [address] Physician Rheumatology 12/10/19 Salena Emmanuel, GEOVANNY-SKATING CARHOP [address] [place] [address] [place] [address] HOME HOUSEKEEPER Anesthesiology 12/10/19 Shahzad Will MD [address] [place] [address] [place] [address] Physician Gastroenterology 12/10/19 Ellen Rodas MD [address] [place] [address] Physician Maternal/ Medicine 12/10/19 Consuelo Puente APRN-SKATING CARHOP [address] [place] [address] [place] [address] HOME HOUSEKEEPER Psychiatry 12/10/19 Bill Ambriz MD [address] [place] [address] [place] [address] Physician Neurology 12/10/19 Christiano Jenkins MD [address] [place] [address] Physician Obstetrics/Gynecology 12/10/19 Yolis Fonseca, OTR/L [address] [place] [address] Occupational Therapist Physical Medicine & Rehab/PM&R 12/10/19 Lasha Carias MD [address] [place] [phone] Physician Orthopaedic Hand Service 12/10/19 Donna No MD [address] [place] [address] [place] [address] Physician Neurology 12/10/19 Elaine Verdin LSW [address] [place] [address] [place] [address] Admin Assistant Social Work 02/07/20 Charanjit Richter MD [address] [place] [address] [place] [address] Physician Neurology 04/10/20 Tigre Mcclellan MD [address] [place] [address] [place] [address] Physician Endocrinology/Medicine 03/06/21 Catering Staff Member Relationship Specialty Start Date End Date Yessica Ramires MD [address] [place] [address] PCP - General Family Medicine 06/16/22 Catering Staff Member Relationship Specialty Start Date End Date Yessica Ramires MD [address] [place] [address] PCP - General Family Medicine 06/16/22 Catering Staff Member Relationship Specialty Start Date End Date Yessica Ramires MD PCP - General Family Medicine 06/16/22 Catering Staff Member Relationship Specialty Start Date End Date Yessica Ramires MD [address] [place] [address] PCP - General Family Medicine 11/16/22 Catering Staff Member Relationship Specialty Start Date End Date Yessica Ramires MD [address] [place] [address] [address] [place] [address] PCP - General Family Medicine 11/16/22 Catering Staff Member Relationship Specialty Start Date End Date Yessica Ramires MD [address] [facility] [address] [place] [address] PCP - General Family Medicine 11/16/22 Reason [...] BE BASED ON THE PRIMARY CLINICAL RECORDS. [facility]. provides no warranty or guarantee of the accuracy or completeness of information in this document.
[2023-05-03 11:41] LABS: ALB/GLOB Ratio 1.1 RATIO (0.9-2.4); AST(SGOT) 20 U/L (15-37); Alanine Aminotransfer ALT/SGPT 21 U/L (13-56); Albumin, Serum 3.9 g/dL (3.2-5.0); Alkaline Phosphatase 61 U/L (45-117); Anion Gap 4 (5-15); BUN 5 mg/dL (7-18); BUN/Creat Ratio 8.4 RATIO (10-20); Calcium,Total 9.2 mg/dL (8.5-10.1); Chloride 104 mmol/L (98-107); Creatinine, Serum 0.59 mg/dL (0.55-1.02); EST Glomerular Filtration Rate 122 mL/min (>60); Est Glom Filt Rate - Afr Amer 147 mL/min (>60); Globulin 3.7 g/dL (2.2-4.2); Glucose 105 mg/dL (74-106); Potassium 4.4 mmol/L (3.5-5.1); Protein, Total 7.6 g/dL (6.4-8.2); Sodium Level 136 mmol/L (136-145); T4 Free Direct 0.87 ng/dL (0.76-1.46)
== END | disposition home or self-care (01) ==
LOC: LAB 09:08
PROVIDERS: Nurse Practitioner Family; PCP Internal Medicine; Referring Provider Internal Medicine Endocrinology, Diabetes & Metabolism; Visit Provider Internal Medicine Endocrinology, Diabetes & Metabolism
DX: E07.9 Disorder of thyroid, unspecified (principal)
CPT/HCPCS: 36415; 80053; 84439; 84443

== ENCOUNTER → 2023-05-24 | Outpatient (CLI) | payer MEDICAID, SELFPAY ==
[2023-05-24 13:19] LABS: Thyroid Stim Hormone (TSH) 9.89 uIU/mL (0.358-3.74)
== END | disposition home or self-care (01) ==
LOC: BIMLAB 09:31
PROVIDERS: PCP Internal Medicine; Referring Provider Internal Medicine; Visit Provider Internal Medicine
DX: E07.9 Disorder of thyroid, unspecified (principal)
CPT/HCPCS: 36415; 84443

== ENCOUNTER → 2023-06-07 | Outpatient (CLI) | payer MEDICAID, SELFPAY ==
[2023-06-07 13:27] LABS: Erythrocyte Sedimentation Rate 10 mm/hr (0-30)
[2023-06-07 13:39] LABS: CRP < 2.90 mg/L (0.0-3.0); Rheumatoid Factor < 10.0 IU/mL (<15)
[2023-06-09 13:08] LABS: ANTINUCLEAR ANTIBODIES DIRECT Negative (Negative)
== END | disposition home or self-care (01) ==
LOC: BIMLAB 11:33
PROVIDERS: PCP Internal Medicine; Referring Provider Internal Medicine; Visit Provider Internal Medicine
DX: L30.9 Dermatitis, unspecified (principal); M25.9 Joint disorder, unspecified; R53.81 Other malaise; R53.83 Other fatigue
CPT/HCPCS: 86225; 86235 ×5; 85652; 86038; 86140; 86431

== ENCOUNTER 2023-06-25 08:50 | Emergency (ER) | payer MEDICAID, SELFPAY ==
[2023-06-25 08:51] VITALS: BP 107/71; PULSE 72; RESP 16; TEMP 36.6; O2SAT 98
[2023-06-25 08:53] VITALS: BP 107/71; PULSE 72; RESP 18; TEMP 36.6; O2SAT 98
--- NOTE | 2023-06-25 09:37 | EX.ED.DYSGE1 ---
HPI History of Present Illness Chief Complaint: Ear Problem Informant: patient Narrative Narrative: Patient presents Monday morning with multiple complaints. She checks her daughter and as well for other issues. Patient states for several weeks she has been having pain in both of her ears but much worse on the left. She has been having some foul-smelling discharge from the left ear and now she is having decreased hearing from that ear as well. No fevers, chills, systemic symptoms. She has also been having a week or more of urinary symptoms that feel like urgency, nocturia, inconsistent dysuria, no hematuria, abdominal pain, back pain, nausea, vomiting, fevers or chills. States she was treated with antibiotics for a sinus infection about a month ago. No recent nasal congestion or cold symptoms. She denies any swimming or getting any liquids in her ears that she can recall but states she uses earplugs and headphones a lot. It is been painful to use ear buds recently and especially in the left ear. [facility] Medical History Adrenal adenoma Anemia Anxiety Back pain Bipolar disorder Cancer Chest pain Depression Dermatitis Fibromyalgia Former smoker Gastric reflux GERD (gastroesophageal reflux disease) History of pain when walking History of steroid therapy Hx of carpal tunnel syndrome Hx of gallstones Hx of gastroesophageal reflux (GERD) Hx of osteoarthritis Injury of back Injury of head and neck Left wrist pain Malaise and fatigue MRSA infection Postoperative primary hypothyroidism Shortness of breath on exertion Thyroid cancer Thyroid disease Unspecified mood [affective] disorder Wears glasses Home Medications ferrous sulfate 325 mg (65 mg iron) tablet (Feosol) 325 mg PO DAILY 11/18/21 [History Last Taken Unknown] Lactobacillus acidophilus-Bifidobac.animalis 15.5 billion cell capsule (Zelac) 1 cap PO DAILY #30 caps 03/23/22 [Rx Last Taken Unknown] atomoxetine 40 mg capsule (Strattera) 40 mg PO BID 04/19/22 [History Last Taken 02/10/23] hydroxyzine HCl 50 mg tablet 50 mg PO QHS 04/19/22 [History Last Taken 02/09/23] lurasidone 80 mg tablet (Latuda) 60 mg PO DAILY 04/19/22 [History Last Taken 02/09/23] paroxetine HCl 37.5 mg tablet,extended release 24 hr (Paxil CR) 25 mg PO DAILY 06/02/22 [History Last Taken 02/10/23] multivitamin with minerals-folic acid 200 mcg chewable tablet (Women's Multivitamin Gummies) 1 tab PO DAILY #30 tabs 09/07/22 [Rx Last Taken Unknown] carbamazepine 400 mg tablet,extended release,12 hr (Tegretol XR) 200 mg PO TID 11/09/22 [History Last Taken 02/10/23] lactobacillus combo #5 150 mg (2 billion cell) tablet,delayed release (Provella) 150 mg PO PRN 01/27/23 [History Last Taken 02/07/23] lamotrigine 100 mg tablet,extended release 24 hr (Lamictal XR) 100 mg PO DAILY 01/27/23 [History Last Taken 02/10/23] methylcellulose (laxative) 500 mg tablet (Fiber Laxative (methylcellulose)) 500 mg PO PRN 01/27/23 [History Last Taken Unknown] tizanidine 4 mg tablet 4 mg PO QHS 01/27/23 [History Last Taken 02/09/23] melatonin 10 mg capsule 10 mg PO QHS 02/02/23 [History Last Taken 02/09/23] docusate sodium 100 mg tablet 100 mg PO BID #20 tabs 02/16/23 [Rx Last Taken Unknown] guaifenesin 600 mg tablet, extended release 12 hr 600 mg PO Q12H PRN cough #20 tabs 03/06/23 [Rx Last Taken Unknown] vitamin E (dl, acetate) 180 mg (400 unit) capsule 180 mg PO DAILY #90 caps 03/27/23 [Rx Last Taken Unknown] calcium carbonate 500 mg-vitamin D3 5 mcg (200 unit) tablet (Oyster Shell Calcium-Vitamin D3) 1 tab PO BID 30 days #180 tabs 04/05/23 [Rx Last Taken Unknown] ondansetron 4 mg disintegrating tablet 4 mg PO Q8H PRN nausea and vomiting #60 tabs 04/05/23 [Rx Last Taken Unknown] neomycin-bacitracn Zn-polymyx 3.5 mg-400 unit-5,000 unit/gram top oint 1 applic topical DAILY apply to scar tissue as directed. #14.2 grams 04/07/23 [Rx Last Taken Unknown] ascorbic acid (vitamin C) 1,000 mg tablet 1 g PO DAILY #90 tabs 04/26/23 [Rx Last Taken Unknown] omeprazole 20 mg capsule,delayed release 20 mg PO BID #180 caps 05/05/23 [Rx Last Taken Unknown] levothyroxine 137 mcg tablet 137 mcg PO DAILY #30 tabs 05/08/23 [Rx Last Taken Unknown] Synthroid 125 mcg tablet (levothyroxine) 125 mcg PO DAILY #30 tabs 05/17/23 [Rx Last Taken Unknown] acetaminophen 500 mg capsule 1,000 mg (2 x 500 mg) PO BID PRN pain #180 caps 06/15/23 [Rx Last Taken Unknown] amoxicillin 875 mg-potassium clavulanate 125 mg tablet 875 mg (0.875 x 875-125 mg) PO Q12H #20 TABLETS 06/25/23 [Rx Last Taken Unknown] dsxqmwna-hfxgenkos-fedhjkyyp 3.5 mg-10,000 unit/mL-1 % ear drops,susp 4 drp LEFT EAR TID 7 days #10 mL 06/25/23 [Rx Last Taken Unknown] Allergy/AdvReac Type Severity Reaction Status Date / Time sulfamethoxazole Allergy Other Verified 06/25/23 08:54 [From Bactrim] Corticosteroids AdvReac Mild ANXIETY Verified 06/25/23 08:54 (Glucocorticoids) Quinolones AdvReac Mild FATIGUE Verified 06/25/23 08:54 Family History Grandmother Arthritis Mother Multiple sclerosis Surgical History History of carpal tunnel release History of thyroidectomy Hx of cholecystectomy Social History household members: children housing: apartment current occupational status: unemployed sexually active: No Smoking Status: Former smoker Electronic Cigarette Use: not used alcohol intake: never substance use type: does not use what type of physical activity do you participate in: none seatbelt use: always do you feel safe at home: Yes ROS ROS ED Constitutional Constitutional ED: Denies chills or fever(s) ENT ENT ED: Reports ear pain bilateral; Denies rhinorrhea or sore throat Gastrointestinal Gastrointestinal: Denies abdominal pain, nausea or vomiting Genitourinary Genitourinary ED: Reports as per HPI, dysuria, nocturia, urinary frequency and urinary urgency; Denies hematuria Musculoskeletal Musculoskeletal: Denies back pain EXAM Physical Exam Const Vital Signs: 06/25/23 08:51 06/25/23 08:53 Temperature 98 F 98 F Temperature Source Temporal Oral Pulse Rate 72 72 Respiratory Rate 16 18 Blood Pressure 107/71 107/71 Blood Pressure Mean 83 83 Pulse Ox 98 98 Oxygen Delivery Method Room Air Room Air Positive well nourished and well developed General Appearance ED: well developed and NAD HEENT Reports moist mucous membranes HEENT Narrative: Oral mucosa moist and normal. Right TM and EAC normal. Left EAC is edematous and erythematous there is no active discharge but there is pain with manipulating the pinna and the tragus. Beyond this, the portions of the TM that I am able to visualize which is almost all of it, shows erythema dulled landmarks, no definite effusion, and no definite perforation. Eyes PERRL and EOMs intact bilaterally Neck no lymphadenopathy and supple Resp normal respiratory effort GI normal to inspection, nondistended, normoactive bowel sounds, non-tender and non-distended Back/Spine no CVA tenderness Neuro oriented x3, CN's II-XII intact bilaterally and no sensory deficits noted Motor Exam: strength 5/5 throughout Skin no rashes or lesions noted and no wounds MDM MDM MDM Narrative Medical decision making narrative: Urinalysis normal, negative. I think reasonable to cover the patient for otitis media and otitis externa given the combination of trouble hearing, pain, and findings compatible with both without risk factors for either. I discussed writing her for these prescriptions, and the patient left prior to receiving discharge instructions. Lab Data Attestation: I reviewed the patient's lab results. Labs: Laboratory Results - last 24 hr 06/25/23 08:41 Urine Color Yellow Urine Clarity Clear Urine pH 8.0 Ur Specific [place] 1.010 Urine Protein Negative Urine Glucose (UA) Normal Urine Ketones Negative Urine Occult Blood Negative Urine Nitrite Negative Urine Bilirubin Negative Urine Urobilinogen Normal Ur Leukocyte Esterase Negative Urine RBC 0 SEEN Urine WBC 0 SEEN Ur Squamous Epith Cells 0-5 SEEN Urine Bacteria 0 SEEN Urine Mucus 0 SEEN Urine Test Negative Discharge Plan Triage Chief Complaint: Ear Problem ED Provider: Isaak Templeton Dx/Rx/DC Orders Clinical Impression: Acute otitis media, left, Acute otitis externa of left ear Instructions: ED Otitis Media Adult Prescriptions: New amoxicillin-pot clavulanate [amoxicillin-pot clavulanate] 875-125 mg tablet 875 mg PO Q12H Qty: 20 0RF pijivaco-xduwhjkbp-AJ 3.5-10,000-1 mg/mL-unit/mL-% drops,suspension 4 drp LEFT EAR TID 7 Days Qty: 10 0RF No Action ferrous sulfate [Feosol] 325 mg (65 mg iron) tablet 325 mg PO DAILY atomoxetine [Strattera] 40 mg capsule 40 mg PO BID Patient Comments: Name Brand Only hydroxyzine HCl 50 mg tablet 50 mg PO QHS lurasidone [Latuda] 80 mg tablet 60 mg PO DAILY Patient Comments: Brand Name only Rx Instructions: must administer with food (at least 350 calories) paroxetine HCl [Paxil CR] 37.5 mg tablet extended release 24 hr 25 mg PO DAILY carbamazepine [Tegretol XR] 400 mg tablet extended release 12 hr 200 mg PO TID Patient Comments: Name Brand only ondansetron 4 mg tablet,disintegrating 4 mg PO Q8H PRN (Reason: nausea and vomiting) Qty: 60 2RF calcium carbonate-vitamin D3 [Oyster Shell Calcium-Vit D3] 500 mg-5 mcg (200 unit) tablet 1 tab PO BID 30 Days Qty: 180 0RF levothyroxine 137 mcg tablet 137 mcg PO DAILY Qty: 30 1RF levothyroxine [Synthroid] 125 mcg tablet 125 mcg PO DAILY Qty: 30 2RF lamotrigine [Lamictal XR] 100 mg tablet extended release 24hr 100 mg PO DAILY Patient Comments: Brand name only tizanidine 4 mg tablet 4 mg PO QHS Patient Comments: TAKE ONE TABLET BY MOUTH NIGHTLY AT BEDTIME Fiber Laxative(methylcellulos) 500 mg tablet 500 mg PO PRN Provella 150 mg (2 billion cell) tablet,delayed release (DR/EC) 150 mg PO PRN melatonin 10 mg capsule 10 mg PO QHS Zelac 15.5 billion cell capsule 1 cap PO DAILY Qty: 30 2RF Women's Multivitamin Gummies 200 mcg tablet,chewable 1 tab PO DAILY Qty: 30 1RF docusate sodium 100 mg tablet 100 mg PO BID Qty: 20 0RF guaifenesin 600 mg tablet extended release 12hr 600 mg PO Q12H PRN (Reason: cough) Qty: 20 0RF Patient Comments: as needed vitamin E (dl, acetate) 180 mg (400 unit) capsule 180 mg PO DAILY Qty: 90 0RF Rx Instructions: Break open and apply one capsule to the skin daily to aid in the healing of scar siebiruz-foyvqzmcrBr-xigbebfgY 3.5mg-400 unit- 5,000 unit/gram ointment 1 applic topical DAILY Qty: 14.2 0RF ascorbic acid (vitamin C) 1,000 mg tablet 1 g PO DAILY Qty: 90 1RF omeprazole 20 mg capsule,delayed release(DR/EC) 20 mg PO BID Qty: 180 1RF acetaminophen 500 mg capsule 1,000 mg PO BID PRN (Reason: pain) Qty: 180 3RF Primary Care Provider: Garrick Lopes Referrals: Garrick Lopes MD [Primary Care Provider] - 3-5 Days if not improving
[2023-06-25 09:45] LABS: Bacteria 0 SEEN /hpf (None Seen); Mucous, Urine 0 SEEN /hpf (<or=2+); Red Blood Cells-Urine 0 SEEN /hpf (0-5); White Blood Cells 0 SEEN /hpf (0-5)
[2023-06-25 09:59] LABS: Color, Urine Yellow (Yellow); Glucose, Dipstick Normal (Normal); Ketone-Dipstick Negative (Negative); Leukocyte Esterase-Dipstick Negative /ul (Negative); Nitrite-Dipstick Negative (Negative); Occult Blood-Urine Negative /ul (Negative); Protein-Dipstick Negative (Negative); Urine Bilirubin Dipstick Negative (Negative); Urine Clarity Clear (Clear); Urine Urobilinogen Normal (Normal)
[2023-06-25 10:19] LABS: Internal QC Validated? YES +Cl - CLEAR BKGD; Pregnancy, Urine Negative Negative; Record Kit Lot#,Urine Preg 718086; Squamous Epithelial Cells - UA 0-5 SEEN /hpf (5-10)
--- NOTE | 2023-06-25 11:15 | ED.RN ---
PATIENT APPROACHES MAIN NURSES STATION STATING SHE FEELS CLAUSTROPHOBIC AND ANXIOUS AND NEEDED TO LEAVE. SHE STATES SHE WILL HAVE TO JUST GET HER DAUGHTER CHECKED OUT AT URGENT CARE FOR HER SYMPTOMS. SHE ASKS IF HER PRESCRIPTIONS WERE SENT. IT WAS EXPLAINED THAT PRESCRIPTIONS ARE GENERALLY SENT ELECTRONICALLY THROUGH THE DISCHARGE PROCESS. SINCE SHE IS NOT CURRENTLY DISCHARGED THEY HAVE NOT BEEN SENT YET. THIS RN SPOKE ABOUT PATIENTS CONCERNS TO DR. WILBURN. PHYSICIAN CURRENTLY MULTITASKING SEEKING SEVERAL ACUTELY ILL PATIENTS. PT IS ASKED TO TO WAIT IN THE HALLWAY BUT GO BACK TO HER ROOM OR THE TRIAGE AREA TO WAIT DUE TO PATIENT CONFIDENTIALITY. PT LEFT AND HEADED TO THE WAITING ROOM. MOTHER THEN LEFT THE WAITING ROOM WITH CHILD BEFORE ANY UPDATE ON PRESCRIPTIONS GIVEN.
--- NOTE | 2023-06-25 11:38 | ED.RN ---
Pt comes out to triage, agitated. States If I would've known it would take this long, I would've just gone to urgent care. Further states it's ridiculous that that she checked in online and was not moved ahead of everyone else, I shouldn't have to wait like these other people. This RN attempted to explain triage process and that acuity level dictates who gets seen first in emergency departments. Pt states I don't care about all that, it's ridiculous that I wasn't in and out. Pt voices she's angry that she and daughter were expected to wait on test results before getting prescriptions and discharge papers. Pt and daughter ambulated out of department.
== END 2023-06-25 11:15 | disposition home or self-care (01) ==
PROVIDERS: Emergency Provider Emergency Medicine; PCP Internal Medicine; Visit Provider Emergency Medicine
DX: H66.93 Otitis media, unspecified, bilateral (principal); Z87.891 Personal history of nicotine dependence; H60.92 Unspecified otitis externa, left ear; K21.9 Gastro-esophageal reflux disease without esophagitis
CPT/HCPCS: 81001; 81025; 99282

== ENCOUNTER → 2023-06-26 | Outpatient (CLI) | payer MEDICAID, SELFPAY | END | disposition home or self-care (01) | LOC: LABSPEC 08:15 | PROVIDERS: PCP Internal Medicine; Visit Provider Nurse Practitioner Family | DX: N39.0 Urinary tract infection, site not specified (principal) | CPT/HCPCS: 87086; 87088 ==

== ENCOUNTER → 2023-07-05 | Outpatient (CLI) | payer MEDICAID, SELFPAY ==
[2023-07-05 10:45] LABS: Mucous, Urine 0 SEEN /hpf (<or=2+); Red Blood Cells-Urine 0 SEEN /hpf (0-5); White Blood Cells 0 SEEN /hpf (0-5)
[2023-07-05 12:30] LABS: Color, Urine Yellow (Yellow); Glucose, Dipstick Normal (Normal); Ketone-Dipstick 5 mg/dl (Negative); Leukocyte Esterase-Dipstick Negative /ul (Negative); Nitrite-Dipstick Negative (Negative); Occult Blood-Urine 10 /ul (Negative); Protein-Dipstick Negative (Negative); Urine Bilirubin Dipstick Negative (Negative); Urine Clarity Clear (Clear); Urine Urobilinogen Normal (Normal)
[2023-07-05 13:09] LABS: Bacteria 1+ /hpf (None Seen); Squamous Epithelial Cells - UA 5-10 SEEN /hpf (5-10)
== END | disposition home or self-care (01) ==
LOC: LABSPEC 10:42
PROVIDERS: PCP Internal Medicine; Visit Provider Internal Medicine
DX: N39.0 Urinary tract infection, site not specified (principal)
CPT/HCPCS: 81001; 87086; 87088

== ENCOUNTER → 2023-10-29 | Outpatient (CLI) | payer MEDICAID, SELFPAY | END | disposition home or self-care (01) | LOC: LABSPEC 13:37 | PROVIDERS: PCP Internal Medicine; Visit Provider Nurse Practitioner | DX: N39.0 Urinary tract infection, site not specified (principal) | CPT/HCPCS: 87086 ==

== ENCOUNTER → 2024-01-09 | Outpatient (CLI) | payer MEDICAID, SELFPAY ==
[2024-01-09 10:49] LABS: ALB/GLOB Ratio 0.9 RATIO (0.9-2.4); AST(SGOT) 19 U/L (15-37); Alanine Aminotransfer ALT/SGPT 24 U/L (13-56); Albumin, Serum 3.4 g/dL (3.2-5.0); Alkaline Phosphatase 68 U/L (45-117); Anion Gap 5 (5-15); BUN 10 mg/dL (7-18); BUN/Creat Ratio 19.5 RATIO (10-20); Calcium,Total 8.5 mg/dL (8.5-10.1); Chloride 106 mmol/L (98-107); Creatinine, Serum 0.51 mg/dL (0.55-1.02); EST Glomerular Filtration Rate 143 mL/min (>60); Est Glom Filt Rate - Afr Amer 174 mL/min (>60); Free T3 2.5 pg/mL (2.18-3.98); Globulin 3.7 g/dL (2.2-4.2); Glucose 95 mg/dL (74-106); Protein, Total 7.1 g/dL (6.4-8.2); Sodium Level 139 mmol/L (136-145); T4 Free Direct 0.79 ng/dL (0.76-1.46); Total Bilirubin < 0.10 mg/dL (0.20-1.00)
[2024-01-10 13:08] LABS: DHEA Sulfate 33.3 ug/dL (57.3-279.2)
== END | disposition home or self-care (01) ==
PROVIDERS: PCP Internal Medicine; Referring Provider Internal Medicine Endocrinology, Diabetes & Metabolism; Visit Provider Internal Medicine Endocrinology, Diabetes & Metabolism
DX: C73 Malignant neoplasm of thyroid gland (principal); D35.00 Benign neoplasm of unspecified adrenal gland; E03.9 Hypothyroidism, unspecified; F90.9 Attention-deficit hyperactivity disorder, unspecified type; E06.3 Autoimmune thyroiditis
CPT/HCPCS: 36415; 80053; 82024; 82533; 82627; 84439; 84443; 84481; 82626

== ENCOUNTER → 2024-02-09 | Outpatient (CLI) | payer MEDICAID, SELFPAY ==
--- NOTE | 2024-02-09 12:40 | US_ITS ---
INDICATION: S/p thyroidectomy -- -- 1 YEAR F/U EXAMINATION: Ultrasound US Thyroid (eg thyroid, parathyroid, parotid) TECHNIQUE: Perkins scale and color doppler imaging was performed of the thyroid gland. COMPARISON: December 16, 2022 FINDINGS: There is evidence of prior total thyroidectomy. No discrete solid or cystic lesions are visualized within the surgical bed. No enlarged lymph nodes are visualized. US/Thyroid IMPRESSION: No discrete solid or cystic nodules or enlarged lymph nodes identified. Electronically Signed: Liliana Guzman MD at 8:19 EST ,
== END | disposition home or self-care (01) ==
PROVIDERS: PCP Internal Medicine; Referring Provider Surgery; Visit Provider Surgery
DX: E89.0 Postprocedural hypothyroidism (principal); E07.9 Disorder of thyroid, unspecified
CPT/HCPCS: 76536

== ENCOUNTER → 2024-03-19 | Outpatient (CLI) | payer MEDICAID, SELFPAY ==
--- NOTE | 2024-03-19 13:08 | US_ITS ---
INDICATION: pain EXAMINATION: Ultrasound US Pelvis Non OB Limited With Transvaginal Imaging TECHNIQUE: Transabdominal and transvaginal (for optimal evaluation of the adnexa) pelvic ultrasound was performed. Grayscale, spectral waveform, and color flow Doppler evaluation of the adnexa. COMPARISON: No relevant prior comparison study available FINDINGS: UTERUS: Anteverted. The uterus measures 7.4 x 4.3 x 3.5 cm. There is no uterine mass. The endometrial stripe measures 12 mm in AP diameter which is within normal limits. There is however an echogenic mass within the endometrial cavity measuring about 2.2 x 1 x 1.3 cm could represent blood clot. Polyp cannot be excluded. RIGHT OVARY: 2.3 x 2.8 x 1.6 cm. Prominent follicle measuring about 1.5 cm. There is normal arterial inflow and venous outflow present in the right ovary. LEFT OVARY: 2.5 x 2 x 1.4 cm. Non-enlarged, normal echogenicity. There is normal arterial inflow and venous outflow present in the left ovary. FREE FLUID: None. US/Pelvic w/ Transvaginal IMPRESSION: Echogenic mass within the endometrial cavity which could represent blood clot. Follow-up examination following menstruation is recommended to exclude endometrial abnormality. Electronically Signed: Scott Mena MD at 12:23 EST ,
== END | disposition home or self-care (01) ==
LOC: US 13:05
PROVIDERS: PCP Internal Medicine; Referring Provider Nurse Practitioner Women's Health; Visit Provider Nurse Practitioner Women's Health
DX: R10.2 Pelvic and perineal pain (principal)

== ENCOUNTER → 2024-05-02 | Outpatient (CLI) | payer MEDICAID, SELFPAY ==
--- NOTE | 2024-05-02 13:32 | US_ITS ---
PROCEDURE: PELVIC W/ TRANSVAGINAL REASON FOR EXAM: Uterine polyp. TECHNIQUE: Transabdominal and transvaginal pelvic ultrasound COMPARISON: Comparison is made with prior study dated March 19, 2024. FINDINGS: Measurements: Uterus: 7.9 cm x 5.3 cm x 4 cm with a volume of 89 mL Endometrial Thickness: 13 mm Right Ovary: 2.9 cm x 1.5 cm x 1.5 cm with a volume of 3.44 mL. Left Ovary: 2.6 cm x 1.8 cm x 1.2 cm with a volume of 3.06 mL. TRANSABDOMINAL: Uterus: Normal size, myometrial echotexture, and contour. Endometrium: There is a 2.1 cm x 1.6 cm x 1.1 cm endometrial polyp. Right ovary: Normal size and echotexture. Left ovary: Normal size and echotexture. No large pelvic mass identified. Transvaginal sonography was performed to better visualize the endometrium. TRANSVAGINAL: Uterus: Anteverted. Normal contour and myometrial echotexture. Endometrium: Endometrium measures 13 mm. There is evidence of a 2.1 cm x 1.6 cm x 1.1 cm polyp. Right ovary: Normal size and echotexture. Left ovary: Normal size and echotexture. Other adnexal findings: None. Cul-de-sac: No free intraperitoneal fluid identified. No tenderness. US/Pelvic w/ Transvaginal IMPRESSION: 2.1 cm x 1.6 cm x 1.0 cm polyp. Reading Location: [id number]
== END | disposition home or self-care (01) ==
LOC: US 13:29
PROVIDERS: PCP Internal Medicine; Referring Provider Nurse Practitioner Women's Health; Visit Provider Nurse Practitioner Women's Health
DX: N84.0 Polyp of corpus uteri (principal)
CPT/HCPCS: 76830; 76856

== ENCOUNTER → 2024-06-11 | Outpatient (CLI) | payer MEDICAID, SELFPAY ==
[2024-06-11 17:18] LABS: Hemoglobin A1c 5.6 % (<=5.6)
[2024-06-11 17:28] LABS: ALB/GLOB Ratio 1.3 RATIO (0.9-2.4); AST(SGOT) 23 U/L (<=31); Alanine Aminotransfer ALT/SGPT 20 U/L (<=34); Albumin, Serum 4.3 g/dL (3.5-5.0); Alkaline Phosphatase 77 U/L (35-104); Anion Gap 13 (5-15); BUN 8 mg/dL (4-19); BUN/Creat Ratio 15.4 RATIO (10-20); Calcium,Total 9.1 mg/dL (7.6-11.0); Carbon Dioxide 25.1 mmol/L (21.0-32.0); Chloride 99 mmol/L (98-108); Cholesterol 272 mg/dL (<=200); Creatinine, Serum 0.49 mg/dL (0.70-1.20); EST Glomerular Filtration Rate 124 (>60); Free T3 2.6 pg/mL (2.18-3.98); Globulin 3.3 g/dL (2.2-4.2); Glucose 83 mg/dL (70-99); High Density Lipoprotein 104 mg/dL; Low Density Lipoprotein Calc. 150 mg/dL; Potassium 3.8 mmol/L (3.3-5.1); Protein, Total 7.6 g/dL (5.9-8.4); Sodium Level 137 mmol/L (133-145); Total Bilirubin 0.27 mg/dL (0.00-1.30); Triglycerides 91 mg/dL; Very Low Density Lipoprotein 18 mg/dL (5-40); Vitamin D,25 Hydroxy 27.2 ng/mL (30-100); cholesterol:hdl ratio screen 2.62
== END | disposition home or self-care (01) ==
LOC: LAB 15:29
PROVIDERS: PCP Internal Medicine; Referring Provider Internal Medicine Endocrinology, Diabetes & Metabolism; Visit Provider Internal Medicine Endocrinology, Diabetes & Metabolism
DX: E03.9 Hypothyroidism, unspecified (principal); C73 Malignant neoplasm of thyroid gland; D35.00 Benign neoplasm of unspecified adrenal gland; F90.9 Attention-deficit hyperactivity disorder, unspecified type; E06.3 Autoimmune thyroiditis
CPT/HCPCS: 36415; 80053; 80061; 82306; 83036; 84439; 84443; 84481

== ENCOUNTER 2024-09-02 15:33 | Emergency (ER) | payer MEDICAID, SELFPAY ==
[2024-09-02 15:34] VITALS: BP 126/74; PULSE 101; RESP 16; TEMP 36.9; O2SAT 97; BMI 32.5
--- NOTE | 2024-09-02 15:58 | EX.ED.DYSGE1 ---
HPI History of Present Illness Chief Complaint: General Illness Informant: patient Onset/Context/Timing Onset: Weeks (2) Context: Gradual Onset Timing: Continuous Quality: Burning Location: Substernal, throat Worsened by: Eating, drinking Relieved by: Nothing Narrative Narrative: Patient presents with chest pain, shortness of breath, and neck tightness that has been getting worse over the past 2 weeks. Patient states it is gradually getting worse. Patient describes it as a burning sensation. Patient states it is in her substernal area and radiates up into her throat. Patient states it is worse with eating and drinking. Patient states nothing makes it better. Patient admits to some lightheadedness and nausea. Patient denies any vomiting. Patient states she has had intermittent black stools over the past 2 weeks. Patient admits to some urinary frequency. Patient also admits to headache and blurry vision. Patient states she was seen in the emergency department earlier today at [facility]. The patient states they did a CT scan and lab work. Patient does not know the results of those. Patient is mainly concerned if this could be from a peptic ulcer. [facility] Medical History Urinary frequency Malaise and fatigue Dermatitis GERD (gastroesophageal reflux disease) Bipolar disorder Adrenal adenoma Wears glasses MRSA infection Cancer Depression Anxiety History of steroid therapy Thyroid disease Anemia Back pain Injury of back Injury of head and neck Gastric reflux Former smoker Shortness of breath on exertion Fibromyalgia History of pain when walking Chest pain Thyroid cancer Left wrist pain Unspecified mood [affective] disorder Hx of gastroesophageal reflux (GERD) Hx of osteoarthritis Hx of gallstones Hx of carpal tunnel syndrome Home Medications ?Medication ?Instructions ?Recorded ?Last Taken ?Type Lactobacillus 1 cap PO DAILY #30 caps 03/23/22 Unknown Rx acidophilus-Bifidobac.animalis 15.5 billion cell capsule (Zelac) atomoxetine 40 mg capsule 40 mg PO BID 04/19/22 02/10/23 History (Strattera) lurasidone 80 mg tablet (Latuda) 60 mg PO DAILY 04/19/22 02/09/23 History multivitamin with minerals-folic 1 tab PO DAILY #30 tabs 09/07/22 Unknown Rx acid 200 mcg chewable tablet (Women's Multivitamin Gummies) carbamazepine 400 mg 200 mg PO TID 11/09/22 02/10/23 History tablet,extended release,12 hr (Tegretol XR) lactobacillus combo #5 150 mg (2 150 mg PO PRN 01/27/23 02/07/23 History billion cell) tablet,delayed release (Provella) lamotrigine 100 mg tablet,extended 100 mg PO DAILY 01/27/23 02/10/23 History release 24 hr (Lamictal XR) methylcellulose (laxative) 500 mg 500 mg PO PRN 01/27/23 Unknown History tablet (Fiber Laxative (methylcellulose)) melatonin 10 mg capsule 10 mg PO QHS 02/02/23 02/09/23 History docusate sodium 100 mg tablet 100 mg PO BID #20 tabs 02/16/23 Unknown Rx guaifenesin 600 mg tablet, 600 mg PO Q12H PRN cough #20 tabs 03/06/23 Unknown Rx extended release 12 hr vitamin E (dl, acetate) 180 mg 180 mg PO DAILY #90 caps 03/27/23 Unknown Rx (400 unit) capsule neomycin-bacitracn Zn-polymyx 3.5 1 applic topical DAILY apply to 04/07/23 Unknown Rx mg-400 unit-5,000 unit/gram top scar tissue as directed. #14.2 oint grams ctrfwxli-gqbztdqoe-eolxqdiyo 3.5 4 drp otic (ear) TID 7 days #10 mL 06/25/23 Unknown Rx mg-10,000 unit/mL-1 % ear drops,susp oxybutynin chloride 5 mg 5 mg PO DAILY #30 tabs 07/05/23 Unknown Rx tablet,extended release 24 hr ondansetron HCl 4 mg tablet 4 mg PO Q8H PRN nausea and 07/18/23 Unknown Rx vomiting #60 tabs ascorbic acid (vitamin C) 1,000 mg 1 g PO DAILY #90 tabs 08/07/23 Unknown Rx tablet triamcinolone acetonide 55 mcg 2 spray intranasal DAILY #16.9 mL 09/21/23 Unknown Rx nasal spray aerosol (Nasacort) phenazopyridine 100 mg tablet 100 mg PO TID PRN pain #30 tabs 10/28/23 Unknown Rx (Pyridium) ferrous sulfate 325 mg (65 mg 325 mg PO Q OTHER DAY #90 tabs 11/08/23 Unknown Rx iron) tablet (Feosol) tizanidine 4 mg tablet 4 mg PO QHS PRN muscle spasticity 01/04/24 Unknown Rx #90 tabs acetaminophen 500 mg capsule 1,000 mg (2 x 500 mg) PO BID PRN 01/08/24 Unknown Rx pain #180 caps nicotine 21 mg/24 hr daily 1 patch transdermal Q24H #28 ea 03/18/24 Unknown Rx transdermal patch benzocaine 15 mg-menthol 3.6 mg 1 emerson mucous membrane Q2H PRN sore 06/20/24 Unknown Rx lozenges (Cepacol Sore Throat throat #16 ea (benzocaine-menthol)) azithromycin 250 mg tablet mg PO 09/02/24 Unknown History calcium 500 mg (as 1 tab PO BID 09/02/24 Unknown History carbonate)-vitamin D3 5 mcg (200 unit) tablet (Oysco 500/D) famotidine 20 mg tablet 20 mg PO QHS 09/02/24 Unknown History hydroxyzine pamoate 50 mg capsule 50 mg PO QHS 09/02/24 Unknown History levothyroxine 137 mcg tablet 137 mcg PO DAILY 09/02/24 Unknown History (Synthroid) omeprazole 40 mg capsule,delayed 40 mg PO DAILY #90 caps 09/02/24 Unknown Rx release sucralfate 1 gram tablet (Carafate) 1 g PO BID #20 tabs 09/02/24 Unknown Rx Allergy/AdvReac Type Severity Reaction Status Date / Time sulfamethoxazole (From Allergy Other Verified 09/02/24 15:34 Bactrim) Corticosteroids AdvReac Mild ANXIETY Verified 09/02/24 15:34 (Glucocorticoids) Quinolones AdvReac Mild FATIGUE Verified 09/02/24 15:34 Family History Grandmother Arthritis Mother Multiple sclerosis Surgical History Status post total thyroidectomy History of thyroidectomy History of carpal tunnel release Hx of cholecystectomy Social History household members: children housing: apartment current occupational status: unemployed sexually active: No Smoking Status: Former smoker Electronic Cigarette Use: not used alcohol intake: never substance use type: does not use what type of physical activity do you participate in: none seatbelt use: always do you feel safe at home: Yes ROS ROS ED Constitutional Constitutional ED: Denies chills or fever(s) Eyes Eyes: Reports blurry vision; Denies diplopia ENT ENT ED: Denies rhinorrhea or sore throat Cardiovascular Cardiovascular: Reports chest pain and palpitations Respiratory/Chest Respiratory/Chest: Reports dyspnea; Denies cough Gastrointestinal Gastrointestinal: Reports melena and nausea; Denies vomiting Genitourinary Genitourinary ED: Reports urinary frequency; Denies dysuria or hematuria Musculoskeletal Musculoskeletal: Reports neck pain; Denies back pain Integumentary Denies abscess or rash Neurologic Neurologic: Reports headache(s); Denies weakness Allergic/Immunologic Allergic/Immunologic ED: Denies mouth swelling or urticaria EXAM Physical Exam Const Vital Signs: 09/02/24 15:34 09/02/24 16:02 09/02/24 17:02 Temperature 98.4 F Temperature Source Oral Pulse Rate 101 H 96 Respiratory Rate 16 20 H Respiratory Effort Normal Non-Labored Respiratory Pattern Normal Blood Pressure 126/74 H 139/86 H Blood Pressure Mean 91 103 Pulse Ox 97 98 Oxygen Delivery Method Room Air Room Air 09/02/24 18:37 Temperature Temperature Source Pulse Rate 82 Respiratory Rate 13 Respiratory Effort Respiratory Pattern Blood Pressure 136/78 H Blood Pressure Mean 97 Pulse Ox 97 Oxygen Delivery Method Room Air Positive well nourished and well developed General Appearance ED: well developed and NAD HEENT Reports moist mucous membranes Neck supple and no JVD Resp normal respiratory effort and clear to auscultation bilaterally Cardio regular rate and regular rhythm GI non-tender and non-distended GI Narrative: Rectal exam showed good sphincter tone. There are no masses palpated. There is a small amount of brown stool. There are no external hemorrhoids noted. Palpation: soft Extremity normal to inspection General Extremety ED: Negative for edema or tenderness General Extremity: Negative for edema Neuro oriented x3, CN's II-XII intact bilaterally and no sensory deficits noted Sensorium / Orientation: alert Motor Exam: strength 5/5 throughout Psych mental status grossly normal MDM MDM MDM Narrative Medical decision making narrative: Differential diagnosis includes cardiac dysrhythmia, cardiac ischemia, bronchitis, gastroesophageal reflux disease, pneumonia, electrolyte abnormality, peptic ulcer disease, pancreatitis, urinary tract infection, hypothyroidism, hyperthyroidism, and anxiety. EKG will be obtained to assess for cardiac dysrhythmia and cardiac ischemia. Chest x-ray will be obtained to assess for pneumonia or bronchitis. CBC will be obtained to assess for leukocytosis and anemia. Basic metabolic profile will be obtained to assess for electrolyte abnormality and renal function. High-sensitivity troponin will be obtained to assess for cardiac ischemia. TSH will be obtained to assess for hyperthyroidism and hypothyroidism. Urinalysis will be obtained to assess for urinary tract production and hematuria. Stool for occult blood will be obtained to assess for occult gastrointestinal bleeding. History & Record Review Additional record(s) reviewed:: Prior outpatient record and Prior labs Lab Data Attestation: I reviewed the patient's lab results. Lab results narrative: CBC was reviewed. There is a mild leukocytosis of 11.7. The remainder was within normal limits. Comprehensive metabolic profile was reviewed and was within normal limits. High-sensitivity troponin was reviewed and was less than 6. Lipase was reviewed and was normal at 32. Serum hCG was reviewed and was negative. Urinalysis was reviewed. There is no evidence of urinary tract infection or hematuria. Stool was positive for occult blood. Labs: Laboratory Results - last 24 hr 09/02/24 09/02/24 16:50 19:14 WBC 11.7 H RBC 4.33 Hgb 12.2 Hct 37.0 MCV 85.5 MCH 28.2 MCHC 33.0 RDW Std Deviation 42.0 RDW Coeff of Alethea 13.4 Plt Count 365 MPV 9.0 Immature Gran % (Auto) 0.600 Neut % (Auto) 75.0 H Lymph % (Auto) 18.3 L King % (Auto) 5.5 Eos % (Auto) 0.1 Baso % (Auto) 0.5 Absolute Neuts (auto) 8.8 H Absolute Lymphs (auto) 2.14 Nucleated RBC % 0 Sodium 137 Potassium 4.0 Chloride 101 Carbon Dioxide 24.9 Anion Gap 12 BUN 9 Creatinine 0.56 L Estim Creat Clear Calc 146.12 Est GFR (MDRD) Non-Af 121 BUN/Creatinine Ratio 16.2 Glucose 89 Calcium 9.3 Total Bilirubin 0.20 AST 19 ALT 14 Alkaline Phosphatase 78 Troponin T High Sens < 6 Total Protein 7.5 Albumin 4.3 Globulin 3.3 Albumin/Globulin Ratio 1.3 Lipase 32 Serum , Qual NEGATIVE Urine Color Straw Urine Clarity Clear Urine pH 6.0 Ur Specific [place] 1.015 Urine Protein Negative Urine Glucose (UA) Normal Urine Ketones Negative Urine Occult Blood 10 H Urine Nitrite Negative Urine Bilirubin Negative Urine Urobilinogen Normal Ur Leukocyte Esterase Negative Urine RBC 0-5 SEEN Urine WBC 0-5 SEEN Ur Squamous Epith Cells 0-5 SEEN Urine Bacteria 0 SEEN Urine Mucus 0 SEEN Radiography Chest X-Ray - ED: 2 View, Read by ED Physician, Read by Radiologist and No Acute Disease Diagnostic Testing: Clinical Impression(s) from Imaging Studies Chest X-Ray 09/02/24 17:05 IMPRESSION: No acute cardiopulmonary process. Reading Location: [facility] and lateral chest x-ray was obtained. There are 2 views. On my independent interpretation, lung russell are clear. There is normal cardiac silhouette. Bony thorax is normal. There is no acute process noted. Radiologist also interpreted the x-ray and agrees. EKG Initial EKG: Attestation: I personally reviewed and interpreted this EKG as follows: Interpretation: Sinus Rhythm (96) and No Acute Injury Pattern Comments: EKG was obtained. On my independent interpretation, it showed a normal sinus rhythm with a rate of 96. MT interval, QRS interval, and QTc intervals were all normal. [place] was normal. There are no acute ST or T wave changes. Prior EKG tracings: not available for review Prior: No Prior Treatment and Re-Evaluation :: Patient was given IV fluids, Reglan, and Pepcid. Patient was also given a GI cocktail. Patient states that the GI cocktail helped. Patient was advised of her findings. Patient was advised that her hemoglobin and hematocrit are stable even though there was microscopic blood in her stool. I do not feel the patient needs to be admitted to the hospital at this time for this. Patient was advised that this could be the peptic ulcer disease. Patient was given a prescription for Carafate. Patient was instructed to continue her omeprazole as prescribed. Patient was instructed to use gqjy-bvh-zigfqql Pepcid as needed. Patient was instructed to follow-up with her primary care physician in 5 to 7 days. Patient was instructed to return if worse in any way. Patient understood and was agreeable with the plan. All questions were answered. Discharge Plan Triage Chief Complaint: General Illness ED Provider: Andres Her Dx/Rx/DC Orders Clinical Impression: Abdominal pain, Fibromyalgia Instructions: ED Gastritis Ulcer No Abx Prescriptions: New sucralfate [Carafate] 1 gram tablet 1 g PO BID Qty: 20 0RF No Action atomoxetine [Strattera] 40 mg capsule 40 mg PO BID Patient Comments: Name Brand Only lurasidone [Latuda] 80 mg tablet 60 mg PO DAILY Patient Comments: Brand Name only Rx Instructions: must administer with food (at least 350 calories) carbamazepine [Tegretol XR] 400 mg tablet extended release 12 hr 200 mg PO TID Patient Comments: Name Brand only obxalsoe-taoxxtbcv-CM 3.5-10,000-1 mg/mL-unit/mL-% drops,suspension 4 drp otic (ear) TID 7 Days Qty: 10 0RF Rx Instructions: Bilateral ear oxybutynin chloride 5 mg tablet extended release 24hr 5 mg PO DAILY Qty: 30 1RF triamcinolone acetonide [Nasacort] 55 mcg aerosol,spray 2 spray intranasal DAILY Qty: 16.9 0RF Rx Instructions: administer into each nostril phenazopyridine [Pyridium] 100 mg tablet 100 mg PO TID PRN (Reason: pain) Qty: 30 0RF Cepacol Sore Throat (kamala-men) 15-3.6 mg lozenge 1 emerson mucous membrane Q2H PRN (Reason: sore throat) Qty: 16 0RF lamotrigine [Lamictal XR] 100 mg tablet extended release 24hr 100 mg PO DAILY Patient Comments: Brand name only Fiber Laxative(methylcellulos) 500 mg tablet 500 mg PO PRN Provella 150 mg (2 billion cell) tablet,delayed release (DR/EC) 150 mg PO PRN melatonin 10 mg capsule 10 mg PO QHS levothyroxine [Synthroid] 137 mcg tablet 137 mcg PO DAILY azithromycin 250 mg tablet PO hydroxyzine pamoate 50 mg capsule 50 mg PO QHS famotidine 20 mg tablet 20 mg PO QHS calcium carbonate-vitamin D3 [Oysco 500/D] 500 mg-5 mcg (200 unit) tablet 1 tab PO BID Zelac 15.5 billion cell capsule 1 cap PO DAILY Qty: 30 2RF Women's Multivitamin Gummies 200 mcg tablet,chewable 1 tab PO DAILY Qty: 30 1RF docusate sodium 100 mg tablet 100 mg PO BID Qty: 20 0RF guaifenesin 600 mg tablet extended release 12hr 600 mg PO Q12H PRN (Reason: cough) Qty: 20 0RF Patient Comments: as needed vitamin E (dl, acetate) 180 mg (400 unit) capsule 180 mg PO DAILY Qty: 90 0RF Rx Instructions: Break open and apply one capsule to the skin daily to aid in the healing of scar lwjpimqx-zhovoshvtMu-rqhpuoldD 3.5mg-400 unit- 5,000 unit/gram ointment 1 applic topical DAILY Qty: 14.2 0RF ondansetron HCl 4 mg tablet 4 mg PO Q8H PRN (Reason: nausea and vomiting) Qty: 60 2RF ascorbic acid (vitamin C) 1,000 mg tablet 1 g PO DAILY Qty: 90 1RF ferrous sulfate [Feosol] 325 mg (65 mg iron) tablet 325 mg PO Q OTHER DAY Qty: 90 1RF tizanidine 4 mg tablet 4 mg PO QHS PRN (Reason: muscle spasticity) Qty: 90 1RF acetaminophen 500 mg capsule 1,000 mg PO BID PRN (Reason: pain) Qty: 180 3RF nicotine 21 mg/24 hr patch 24 hour 1 patch transdermal Q24H Qty: 28 0RF omeprazole 40 mg capsule,delayed release(DR/EC) 40 mg PO DAILY Qty: 90 0RF Primary Care Provider: Garrick Lopes Referrals: Garrick Lopes MD [Primary Care Provider] - 3-5 Days Print Language: Frisian Disposition Disposition: Home, Self Care
--- NOTE | 2024-09-02 16:21 | EKG12_ITS ---
Test Reason : CP Blood Pressure : */* mmHG Vent. Rate : 96 BPM Atrial Rate : 96 BPM P-R Int : 132 ms QRS Dur : 92 ms QT Int : 354 ms P-R-T Axes : 63 48 35 degrees QTcB Int : 447 ms Normal sinus rhythm Normal ECG Confirmed by MARINA ROBERSON, CHRISTOPHE ([id number]), assignment editor MELANIE ALVAREZ ([id number]) on 09/03/2024 1:34:11 PM Referred By: TONE/EMMY Confirmed By: CHRISTOPHE GRAY MD
[2024-09-02] MEDS: 0.9% Normal Saline (1000mL) 1,000 ML 1000 ML IV (16:56)
[2024-09-02] MEDS: Metoclopramide 10 MG/2 ML Vial IV (16:56)
[2024-09-02] MEDS: Mag Hydrox/Al Hydrox/Simeth 30 ML UDC PO (16:57)
[2024-09-02] MEDS: Lidocaine 2% Viscous15 ML UDC 15 ML PO (16:57)
[2024-09-02] MEDS: Famotidine 200 MG/20 ML MDV 20 MG in 0.9% Normal Saline (Pres. free 8 ML 300 MG IV (16:59)
[2024-09-02 17:00] LABS: Absolute Lymphocyte Count 2.14 X10^3/uL (0.83-4.51); Absolute Neutrophil Count 8.8 X10^3/uL (2.0-7.7); Basophil# 0.06 X10^3/uL; Basophil% 0.5 % (0-1); Eosinophil# 0.01 X10^3/uL; Eosinophils% 0.1 % (0-5); Hemoglobin 12.2 g/dL (12.0-15.0); Lymphocyte # 2.14 X10^3/ul (0.83-4.51); Lymphocyte % 18.3 % (19-41); Mean Corpuscular Hgb 28.2 pg (27.0-32.0); Mean Corpuscular Volume 85.5 fL (81-99); Monocyte# 0.64 X10^3/uL; Monocyte% 5.5 % (0-10); NRBC Flagged by Analyzer 0 % (0-5); Platelet Count 365 K/mm3 (150-450); RBC Distribution Width CV 13.4 % (11.6-14.6); Red Blood Count 4.33 M/mm3 (4.2-5.4); White Blood Count 11.7 K/mm3 (4.4-11.0)
[2024-09-02 17:02] VITALS: BP 139/86; PULSE 96; RESP 20; O2SAT 98
--- NOTE | 2024-09-02 17:05 | RAD_ITS ---
EXAM: XR Chest, 2 Views CLINICAL INDICATION: CHEST PAIN TECHNIQUE: Frontal and lateral views of the chest. COMPARISON: No relevant prior studies available. FINDINGS: LUNGS AND PLEURAL SPACES: Unremarkable. No consolidation. No pneumothorax. HEART: Unremarkable. No cardiomegaly. MEDIASTINUM: Unremarkable. Normal mediastinal contour. BONES/JOINTS: Unremarkable. No acute fracture. RAD/Chest PA and Lateral IMPRESSION: No acute cardiopulmonary process. Reading Location: [id number]
[2024-09-02 17:32] LABS: Internal QC Validated? YES +Cl - CLEAR BKGD; Pregnancy, Serum, hCG Quali. NEGATIVE Negative; Record Kit Lot#, Serum Preg. 947241
[2024-09-02 17:38] LABS: ALB/GLOB Ratio 1.3 RATIO (0.9-2.4); AST(SGOT) 19 U/L (<=31); Alanine Aminotransfer ALT/SGPT 14 U/L (<=34); Albumin, Serum 4.3 g/dL (3.5-5.0); Alkaline Phosphatase 78 U/L (35-104); Anion Gap 12 (5-15); BUN 9 mg/dL (4-19); BUN/Creat Ratio 16.2 RATIO (10-20); Calcium,Total 9.3 mg/dL (7.6-11.0); Carbon Dioxide 24.9 mmol/L (21.0-32.0); Chloride 101 mmol/L (98-108); Creatinine, Serum 0.56 mg/dL (0.70-1.20); EST Glomerular Filtration Rate 121 (>60); Estimated Creatinine Clearance 146.12 ml/min (50-250); Globulin 3.3 g/dL (2.2-4.2); Glucose 89 mg/dL (70-99); Lipase 32 U/L (13-75); Protein, Total 7.5 g/dL (5.9-8.4); Sodium Level 137 mmol/L (133-145)
[2024-09-02 17:42] LABS: Troponin T High Sensitivity < 6 ng/L (<=14)
[2024-09-02 18:37] VITALS: BP 136/78; PULSE 82; RESP 13; O2SAT 97
[2024-09-02 19:22] LABS: Bacteria 0 SEEN /hpf (None Seen); Mucous, Urine 0 SEEN /hpf (<or=2+)
[2024-09-02 19:34] LABS: Color, Urine Straw (Yellow); Glucose, Dipstick Normal (Normal); Ketone-Dipstick Negative (Negative); Leukocyte Esterase-Dipstick Negative /ul (Negative); Nitrite-Dipstick Negative (Negative); Occult Blood-Urine 10 /ul (Negative); Protein-Dipstick Negative (Negative); Specific Gravity, Urine 1.015 (1.002-1.030); Urine Bilirubin Dipstick Negative (Negative); Urine Clarity Clear (Clear); Urine Urobilinogen Normal (Normal)
[2024-09-02 19:57] LABS: Red Blood Cells-Urine 0-5 SEEN /hpf (0-5); Squamous Epithelial Cells - UA 0-5 SEEN /hpf (5-10); White Blood Cells 0-5 SEEN /hpf (0-5)
[2024-09-02 20:00] VITALS: BP 131/72; PULSE 84; RESP 18; O2SAT 98
[2024-09-02] MEDS: Morphine 4 MG/ML Syringe IV (20:40)
[2024-09-02 21:00] VITALS: BP 134/71; PULSE 78; RESP 18; TEMP 36.8; O2SAT 97
== END 2024-09-02 21:35 | disposition home or self-care (01) ==
PROVIDERS: Emergency Provider Emergency Medicine; PCP Internal Medicine; Visit Provider Emergency Medicine
DX: R07.9 Chest pain, unspecified (principal); F31.9 Bipolar disorder, unspecified; R10.9 Unspecified abdominal pain; Z87.891 Personal history of nicotine dependence; R06.02 Shortness of breath; M79.7 Fibromyalgia; K21.9 Gastro-esophageal reflux disease without esophagitis; Z79.899 Other long term (current) drug therapy; Z90.49 Acquired absence of other specified parts of digestive tract
CPT/HCPCS: 71046; 80053; 81001; 82274; 83690; 84484; 84703; 85025; 93005; 96365; 96366; 96375; 99284; A4216

== ENCOUNTER 2024-09-05 11:23 | Emergency (ER) | payer MEDICAID, SELFPAY ==
[2024-09-05 11:24] VITALS: BP 155/80; PULSE 86; RESP 14; TEMP 35.7; O2SAT 98; BMI 32.5
--- NOTE | 2024-09-05 11:52 | ED.VIS.DYS ---
HPI History of Present Illness Chief Complaint: Shortness of Breath Informant: patient Narrative Narrative: 38-year-old female presenting with shortness of breath. She states this has been going on for maybe 3 weeks or so, she is not exactly sure it did not start abruptly. It is worse with exertion, and worse when she is in the summer heat/humidity. She states she had asthma as a child and sometimes feels like she is wheezing in the last couple weeks with some mild chest tightness when she is dyspneic and feels like this may be your asthma. She has not been tested for that in a long time. She was seen here 3 days ago for chest pain and shortness of breath and had negative testing. She has no history of DVT or PE, she denies a recent cough or fever. She was started on sucralfate after having chest pain improved after a GI cocktail and having occult GI blood, and she states since she started super fate her chest pain is much improved compared with what it was, and she agrees that she suspects that is GI-related but despite this improving, she is still having dyspnea. PE Risk Factors: Negative for Cancer, OCP + Smoking + > 35, Prior DVT or PE, Recent immobilization, Recent surgery or Recent travel [facility] Medical History Urinary frequency Malaise and fatigue Dermatitis GERD (gastroesophageal reflux disease) Bipolar disorder Adrenal adenoma Wears glasses MRSA infection Cancer Depression Anxiety History of steroid therapy Thyroid disease Anemia Back pain Injury of back Injury of head and neck Gastric reflux Former smoker Shortness of breath on exertion Fibromyalgia History of pain when walking Chest pain Thyroid cancer Left wrist pain Unspecified mood [affective] disorder Hx of gastroesophageal reflux (GERD) Hx of osteoarthritis Hx of gallstones Hx of carpal tunnel syndrome Home Medications ?Medication ?Instructions ?Recorded ?Last Taken ?Type Lactobacillus 1 cap PO DAILY #30 caps 03/23/22 Unknown Rx acidophilus-Bifidobac.animalis 15.5 billion cell capsule (Zelac) atomoxetine 40 mg capsule 40 mg PO BID 04/19/22 02/10/23 History (Strattera) lurasidone 80 mg tablet (Latuda) 60 mg PO DAILY 04/19/22 02/09/23 History multivitamin with minerals-folic 1 tab PO DAILY #30 tabs 09/07/22 Unknown Rx acid 200 mcg chewable tablet (Women's Multivitamin Gummies) carbamazepine 400 mg 200 mg PO TID 11/09/22 02/10/23 History tablet,extended release,12 hr (Tegretol XR) lactobacillus combo #5 150 mg (2 150 mg PO PRN 01/27/23 02/07/23 History billion cell) tablet,delayed release (Provella) lamotrigine 100 mg tablet,extended 100 mg PO DAILY 01/27/23 02/10/23 History release 24 hr (Lamictal XR) methylcellulose (laxative) 500 mg 500 mg PO PRN 01/27/23 Unknown History tablet (Fiber Laxative (methylcellulose)) melatonin 10 mg capsule 10 mg PO QHS 02/02/23 02/09/23 History vitamin E (dl, acetate) 180 mg 180 mg PO DAILY #90 caps 03/27/23 Unknown Rx (400 unit) capsule neomycin-bacitracn Zn-polymyx 3.5 1 applic topical DAILY apply to 04/07/23 Unknown Rx mg-400 unit-5,000 unit/gram top scar tissue as directed. #14.2 oint grams fuekhqqx-sjmxqyldl-dlpsmdict 3.5 4 drp otic (ear) TID 7 days #10 mL 06/25/23 Unknown Rx mg-10,000 unit/mL-1 % ear drops,susp oxybutynin chloride 5 mg 5 mg PO DAILY #30 tabs 07/05/23 Unknown Rx tablet,extended release 24 hr ondansetron HCl 4 mg tablet 4 mg PO Q8H PRN nausea and 07/18/23 Unknown Rx vomiting #60 tabs ascorbic acid (vitamin C) 1,000 mg 1 g PO DAILY #90 tabs 08/07/23 Unknown Rx tablet triamcinolone acetonide 55 mcg 2 spray intranasal DAILY #16.9 mL 09/21/23 Unknown Rx nasal spray aerosol (Nasacort) phenazopyridine 100 mg tablet 100 mg PO TID PRN pain #30 tabs 10/28/23 Unknown Rx (Pyridium) ferrous sulfate 325 mg (65 mg 325 mg PO Q OTHER DAY #90 tabs 11/08/23 Unknown Rx iron) tablet (Feosol) tizanidine 4 mg tablet 4 mg PO QHS PRN muscle spasticity 01/04/24 Unknown Rx #90 tabs acetaminophen 500 mg capsule 1,000 mg (2 x 500 mg) PO BID PRN 01/08/24 Unknown Rx pain #180 caps nicotine 21 mg/24 hr daily 1 patch transdermal Q24H #28 ea 03/18/24 Unknown Rx transdermal patch benzocaine 15 mg-menthol 3.6 mg 1 emerson mucous membrane Q2H PRN sore 06/20/24 Unknown Rx lozenges (Cepacol Sore Throat throat #16 ea (benzocaine-menthol)) calcium 500 mg (as 1 tab PO BID 09/02/24 Unknown History carbonate)-vitamin D3 5 mcg (200 unit) tablet (Oysco 500/D) famotidine 20 mg tablet 20 mg PO QHS 09/02/24 Unknown History hydroxyzine pamoate 50 mg capsule 50 mg PO QHS 09/02/24 Unknown History levothyroxine 137 mcg tablet 137 mcg PO DAILY 09/02/24 Unknown History (Synthroid) sucralfate 1 gram tablet (Carafate) 1 g PO BID #20 tabs 09/02/24 Unknown Rx albuterol sulfate 90 mcg/actuation 1 - 2 puff inhalation Q4H PRN PRN 09/05/24 Unknown Rx aerosol inhaler (Ventolin HFA) Wheezing ##1 famotidine 40 mg tablet 40 mg PO QDAY #30 tabs 09/05/24 Unknown Rx omeprazole 40 mg capsule,delayed 40 mg PO BID #90 caps 09/05/24 Unknown Rx release prednisone 20 mg tablet 40 mg (2 x 20 mg) PO DAILY 5 days 09/05/24 Unknown Rx #10 tabs Allergy/AdvReac Type Severity Reaction Status Date / Time sulfamethoxazole (From Allergy Other Verified 09/05/24 11:24 Bactrim) Corticosteroids AdvReac Mild ANXIETY Verified 09/05/24 11:24 (Glucocorticoids) Quinolones AdvReac Mild FATIGUE Verified 09/05/24 11:24 Family History Grandmother Arthritis Mother Multiple sclerosis Surgical History Status post total thyroidectomy History of thyroidectomy History of carpal tunnel release Hx of cholecystectomy Social History household members: children housing: apartment current occupational status: unemployed sexually active: No Smoking Status: Former smoker Electronic Cigarette Use: not used alcohol intake: never substance use type: does not use what type of physical activity do you participate in: none seatbelt use: always do you feel safe at home: Yes ROS ROS ED Constitutional Constitutional ED: Denies chills or fever(s) Eyes Eyes: Denies change in vision or diplopia ENT ENT ED: Denies rhinorrhea or sore throat Cardiovascular Cardiovascular: Reports chest pain; Denies orthopnea or palpitations Respiratory/Chest Respiratory/Chest: Reports dyspnea and dyspnea on exertion; Denies cough or orthopnea Gastrointestinal Gastrointestinal: Denies diarrhea, melena, nausea or vomiting Genitourinary Genitourinary ED: Denies dysuria or hematuria Musculoskeletal Musculoskeletal: Denies back pain or neck pain Integumentary Denies abscess or rash Neurologic Neurologic: Denies headache(s), paresthesias or weakness Psychiatric Psychiatric: Reports anxiety; Denies suicidal thoughts EXAM Physical Exam Const Vital Signs: 09/05/24 11:24 09/05/24 12:12 09/05/24 12:37 Temperature 96.3 F L Temperature Source Temporal Pulse Rate 86 73 Respiratory Rate 14 17 Respiratory Effort Normal Non-Labored Respiratory Depth Normal Respiratory Pattern Normal Normal Blood Pressure 155/80 H Blood Pressure Mean 105 Pulse Ox 98 Oxygen Delivery Method Room Air Room Air 09/05/24 13:24 Temperature Temperature Source Pulse Rate 89 Respiratory Rate 16 Respiratory Effort Respiratory Depth Respiratory Pattern Blood Pressure 130/77 H Blood Pressure Mean 94 Pulse Ox 100 Oxygen Delivery Method Room Air Positive well nourished and well developed General Appearance ED: well developed and NAD HEENT Reports moist mucous membranes normocephalic and atraumatic Eyes PERRL and EOMs intact bilaterally Neck full ROM, supple and no JVD Resp normal respiratory effort and clear to auscultation bilaterally Resp Narrative: Conversive in full sentences without distress Cardio regular rate, regular rhythm and no murmurs GI non-tender and non-distended Auscultation: normoactive bowel sounds Palpation: soft Back/Spine no CVA tenderness General Back: other FROM Extremity normal to inspection General Extremety ED: Negative for edema, pulses abnormal or tenderness General Extremity: Negative for edema or pulses abnormal Neuro oriented x3, CN's II-XII intact bilaterally and no sensory deficits noted Sensorium / Orientation: awake and alert Motor Exam: strength 5/5 throughout Psych Mood & Affect: anxious Skin no rashes or lesions noted and no wounds MDM MDM MDM Narrative Medical decision making narrative: I reviewed the patient's ED visit from 3 days ago, she had a normal chest x-ray and normal labs and EKG, right now her PERC score is negative and her vital signs are normal. I do not think has a PE, I agree with the patient this certainly could be asthma-related. Therefore we gave her an albuterol treatment, and she feels better but states she has a globus sensation in her throat, she can feel it when she swallows, feels like mucus and she is wondering if she needs a mucolytic. I advise either a GI cocktail which she declines right now, or guaifenesin. She would like an inhaler and a short course of prednisone again, which seemed to help all this when she was on it for a different reason before. Prescribed both of those and advised to follow-up. History & Record Review Additional record(s) reviewed:: Prior ED visit Discharge Plan Triage Chief Complaint: Shortness of Breath ED Provider: Isaak Templeton Dx/Rx/DC Orders Clinical Impression: Acute asthma exacerbation, Chest pain due to gastrointestinal reflux disease, Globus sensation Instructions: Asthma Prescriptions: New prednisone 20 mg tablet 40 mg PO DAILY 5 Days Qty: 10 0RF albuterol sulfate [Ventolin HFA] 90 mcg/actuation HFA aerosol inhaler 1 - 2 puff inhalation Q4H PRN PRN (Reason: Wheezing) Qty: 1 0RF No Action atomoxetine [Strattera] 40 mg capsule 40 mg PO BID Patient Comments: Name Brand Only lurasidone [Latuda] 80 mg tablet 60 mg PO DAILY Patient Comments: Brand Name only Rx Instructions: must administer with food (at least 350 calories) carbamazepine [Tegretol XR] 400 mg tablet extended release 12 hr 200 mg PO TID Patient Comments: Name Brand only runwhvuw-udmsyolot-ON 3.5-10,000-1 mg/mL-unit/mL-% drops,suspension 4 drp otic (ear) TID 7 Days Qty: 10 0RF Rx Instructions: Bilateral ear oxybutynin chloride 5 mg tablet extended release 24hr 5 mg PO DAILY Qty: 30 1RF triamcinolone acetonide [Nasacort] 55 mcg aerosol,spray 2 spray intranasal DAILY Qty: 16.9 0RF Rx Instructions: administer into each nostril phenazopyridine [Pyridium] 100 mg tablet 100 mg PO TID PRN (Reason: pain) Qty: 30 0RF Cepacol Sore Throat (kamala-men) 15-3.6 mg lozenge 1 emerson mucous membrane Q2H PRN (Reason: sore throat) Qty: 16 0RF famotidine 40 mg tablet 40 mg PO QDAY Qty: 30 1RF omeprazole 40 mg capsule,delayed release(DR/EC) 40 mg PO BID Qty: 90 0RF lamotrigine [Lamictal XR] 100 mg tablet extended release 24hr 100 mg PO DAILY Patient Comments: Brand name only Fiber Laxative(methylcellulos) 500 mg tablet 500 mg PO PRN Provella 150 mg (2 billion cell) tablet,delayed release (DR/EC) 150 mg PO PRN melatonin 10 mg capsule 10 mg PO QHS levothyroxine [Synthroid] 137 mcg tablet 137 mcg PO DAILY hydroxyzine pamoate 50 mg capsule 50 mg PO QHS famotidine 20 mg tablet 20 mg PO QHS calcium carbonate-vitamin D3 [Oysco 500/D] 500 mg-5 mcg (200 unit) tablet 1 tab PO BID sucralfate [Carafate] 1 gram tablet 1 g PO BID Qty: 20 0RF Zelac 15.5 billion cell capsule 1 cap PO DAILY Qty: 30 2RF Women's Multivitamin Gummies 200 mcg tablet,chewable 1 tab PO DAILY Qty: 30 1RF vitamin E (dl, acetate) 180 mg (400 unit) capsule 180 mg PO DAILY Qty: 90 0RF Rx Instructions: Break open and apply one capsule to the skin daily to aid in the healing of scar yncgyzqz-mejnqzqwiTz-athbakeiU 3.5mg-400 unit- 5,000 unit/gram ointment 1 applic topical DAILY Qty: 14.2 0RF ondansetron HCl 4 mg tablet 4 mg PO Q8H PRN (Reason: nausea and vomiting) Qty: 60 2RF ascorbic acid (vitamin C) 1,000 mg tablet 1 g PO DAILY Qty: 90 1RF ferrous sulfate [Feosol] 325 mg (65 mg iron) tablet 325 mg PO Q OTHER DAY Qty: 90 1RF tizanidine 4 mg tablet 4 mg PO QHS PRN (Reason: muscle spasticity) Qty: 90 1RF acetaminophen 500 mg capsule 1,000 mg PO BID PRN (Reason: pain) Qty: 180 3RF nicotine 21 mg/24 hr patch 24 hour 1 patch transdermal Q24H Qty: 28 0RF Primary Care Provider: Garrick Lopes Referrals: Garrick Lopes MD [Primary Care Provider] - As soon as possible Print Language: Cameroonian Disposition Disposition: Home, Self Care
[2024-09-05] MEDS: Albuterol 2.5 MG/3 ML VIAL.NEB. INHALATION (12:11)
[2024-09-05 12:12] VITALS: PULSE 73; RESP 17
[2024-09-05 12:37] VITALS: O2SAT 98
[2024-09-05 13:24] VITALS: BP 130/77; PULSE 89; RESP 16; O2SAT 100
[2024-09-05 14:05] VITALS: BP 130/77; PULSE 89; RESP 16; TEMP 36.6; O2SAT 100
== END 2024-09-05 14:07 | disposition home or self-care (01) ==
PROVIDERS: Emergency Provider Emergency Medicine; PCP Internal Medicine; Referring Provider Emergency Medicine; Visit Provider Emergency Medicine
DX: J45.901 Unspecified asthma with (acute) exacerbation (principal); Z87.891 Personal history of nicotine dependence; K21.9 Gastro-esophageal reflux disease without esophagitis; F41.9 Anxiety disorder, unspecified
CPT/HCPCS: 94640; 99282; A4216

== ENCOUNTER → 2024-09-10 | Outpatient (CLI) | payer MEDICAID, SELFPAY ==
[2024-09-10 12:42] LABS: Hematocrit 39.0 % (37-47); Hemoglobin 12.8 g/dL (12.0-15.0); Immature Granulocytes Count 0.050 X10^3/uL (0.0-0.0); Mean Corp Hgb Conc 32.8 g/dL (32-36); Mean Corpuscular Volume 86.1 fL (81-99); Mean Platelet Vol. 9.3 fl (6.2-12.0); NRBC Flagged by Analyzer 0 % (0-5); Platelet Count 402 K/mm3 (150-450); RBC Distribution Width CV 13.7 % (11.6-14.6); RBC Distribution Width SD 43.1 fl (35.1-43.9); Red Blood Count 4.53 M/mm3 (4.2-5.4); White Blood Count 10.9 K/mm3 (4.4-11.0)
[2024-09-10 13:20] LABS: AST(SGOT) 21 U/L (<=31); Alanine Aminotransfer ALT/SGPT 18 U/L (<=34); Albumin, Serum 4.5 g/dL (3.5-5.0); Alkaline Phosphatase 92 U/L (35-104); Anion Gap 12 (5-15); BUN 7 mg/dL (4-19); BUN/Creat Ratio 11.6 RATIO (10-20); Calcium,Total 9.3 mg/dL (7.6-11.0); Carbon Dioxide 23.6 mmol/L (21.0-32.0); Chloride 101 mmol/L (98-108); Free T3 2.9 pg/mL (2.18-3.98); Globulin 3.5 g/dL (2.2-4.2); Glucose 108 mg/dL (70-99); Potassium 4.3 mmol/L (3.3-5.1); T4 Total, Thyroxin 9.7 ug/dL (4.8-13.9); Vitamin D,25 Hydroxy 36.9 ng/mL (30-100)
== END | disposition home or self-care (01) ==
LOC: BIMLAB 11:19
PROVIDERS: PCP Internal Medicine; Referring Provider Nurse Practitioner Family; Visit Provider Nurse Practitioner Family
DX: K21.9 Gastro-esophageal reflux disease without esophagitis (principal); E07.9 Disorder of thyroid, unspecified; R06.02 Shortness of breath; E55.9 Vitamin D deficiency, unspecified
CPT/HCPCS: 36415; 80053; 82306; 84436; 84443; 84481; 85025

== ENCOUNTER → 2024-09-12 | Outpatient (CLI) | payer MEDICAID, SELFPAY ==
--- NOTE | 2024-09-12 12:24 | US_ITS ---
PROCEDURE: THYROID 09/12/2024 REASON FOR EXAM: PAIN, HISTORY OF THYROID CA TECHNIQUE: THYROID COMPARISON: 11/23/2022 FINDINGS: Status post thyroidectomy. No obvious soft tissue abnormalities. No residual thyroid tissue could be visualized. US/Thyroid IMPRESSION: Status post thyroidectomy with clear operative bed. No obvious lesions Reading [facility]
== END | disposition home or self-care (01) ==
LOC: OPUS 12:23
PROVIDERS: PCP Internal Medicine; Referring Provider Nurse Practitioner Family; Visit Provider Nurse Practitioner Family
DX: E89.2 Postprocedural hypoparathyroidism (principal); E07.9 Disorder of thyroid, unspecified
CPT/HCPCS: 76536

== ENCOUNTER 2024-10-24 11:26 | Day surgery (SDC) | payer MEDICAID, SELFPAY ==
[2024-10-24] VITALS (7 sets, daily range): BP systolic 108–140; BP diastolic 75–86; PULSE 76–95; RESP 16–20; TEMP 36.1–36.8; O2SAT 97–100; BMI 33.3
[2024-10-24] MEDS: Lactated Ringers 1,000 ML 15 ML IV (11:50)
--- NOTE | 2024-10-24 11:50 | PCM.HP.STD ---
HPI - General General Date of Admission: 10/24/24 Date of Service: 10/24/24 Chief Complaint: Epigastric pain HPI Narrative AMINAH BARRETT, is a 39 F who presents with Chief Complaint: SOB, GERD [facility] ED 7.03.30 with chest pain, sob and neck tightness x2 weeks. Worse with eating and drinking. Endorsing intermittent black stools over the past 2 weeks. Work up mostly unremarkable. FOBT+. Given GI cocktail and discharged. Prescription for Carafate and omeprazole given OV 7..25 Pt here today for continued issues with reflux. Pt is having epigastric pain radiating to her throat. Her main concern is sob. She feels it is worse when standing. She notes one episode of waking up in the night choking. Symptoms are not worse with eating. SHe has been on omeprazole 40 mg daily for many years. She started taking Carafate prescribed by the ED which she feels does help. She did not try famotidine yet. No hx of EGD. Denies frequent NSAID use. famotidine 40 mg PO QDAY 30 tabs 1RF From omeprazole 40 mg PO DAILY 90 caps 0RF To omeprazole 40 mg PO BID 90 caps 0RF PFSH Medical History Fatty liver Migraine headache Smoker Difficulty chewing History of GI bleed History of ulceration Asthma History of irregular heartbeat Fullness in both ears Urinary frequency Malaise and fatigue GERD (gastroesophageal reflux disease) Adrenal adenoma Wears glasses MRSA infection Cancer Depression Anxiety History of steroid therapy Thyroid disease Anemia Back pain Injury of back Injury of head and neck Gastric reflux Shortness of breath on exertion Fibromyalgia History of pain when walking Chest pain Thyroid cancer Left wrist pain Unspecified mood [affective] disorder Hx of gastroesophageal reflux (GERD) Hx of osteoarthritis Hx of gallstones Hx of carpal tunnel syndrome Home Medications ?Medication ?Instructions ?Recorded ?Last Taken ?Type Lactobacillus 1 cap PO DAILY #30 caps 03/23/22 Unknown Rx acidophilus-Bifidobac.animalis 15.5 billion cell capsule (Zelac) lurasidone 80 mg tablet (Latuda) 60 mg PO QHS 04/19/22 02/09/23 History multivitamin with minerals-folic 1 tab PO DAILY #30 tabs 09/07/22 Unknown Rx acid 200 mcg chewable tablet (Women's Multivitamin Gummies) lactobacillus combo #5 150 mg (2 150 mg PO PRN 01/27/23 02/07/23 History billion cell) tablet,delayed release (Provella) methylcellulose (laxative) 500 mg 500 mg PO PRN 01/27/23 Unknown History tablet (Fiber Laxative (methylcellulose)) melatonin 10 mg capsule 10 mg PO QHS 02/02/23 02/09/23 History neomycin-bacitracn Zn-polymyx 3.5 1 applic topical DAILY apply to 04/07/23 Unknown Rx mg-400 unit-5,000 unit/gram top scar tissue as directed. #14.2 oint grams xodfkher-kntkrupsi-lzwbwrbln 3.5 4 drp otic (ear) TID 7 days #10 mL 06/25/23 Unknown Rx mg-10,000 unit/mL-1 % ear drops,susp ondansetron HCl 4 mg tablet 4 mg PO Q8H PRN nausea and 07/18/23 Unknown Rx vomiting #60 tabs ascorbic acid (vitamin C) 1,000 mg 1 g PO DAILY #90 tabs 08/07/23 Unknown Rx tablet phenazopyridine 100 mg tablet 100 mg PO TID PRN pain #30 tabs 10/28/23 Unknown Rx (Pyridium) ferrous sulfate 325 mg (65 mg 325 mg PO Q OTHER DAY #90 tabs 11/08/23 Unknown Rx iron) tablet (Feosol) tizanidine 4 mg tablet 4 mg PO QHS PRN muscle spasticity 01/04/24 Unknown Rx #90 tabs acetaminophen 500 mg capsule 1,000 mg (2 x 500 mg) PO BID PRN 01/08/24 Unknown Rx pain #180 caps calcium 500 mg (as 1 tab PO BID 09/02/24 Unknown History carbonate)-vitamin D3 5 mcg (200 unit) tablet (Oysco 500/D) hydroxyzine pamoate 50 mg capsule 50 mg PO QHS 09/02/24 Unknown History levothyroxine 137 mcg tablet 137 mcg PO DAILY 09/02/24 10/24/24 History (Synthroid) sucralfate 1 gram tablet (Carafate) 1 g PO BID #20 tabs 09/02/24 Unknown Rx albuterol sulfate 90 mcg/actuation 1 - 2 puff inhalation Q4H PRN PRN 09/05/24 Unknown Rx aerosol inhaler (Ventolin HFA) Wheezing ##1 cholecalciferol (vitamin D3) 125 125 mcg PO QDAY #90 caps 09/10/24 Unknown Rx mcg (5,000 unit) capsule fluticasone propionate 50 2 spray intranasal QDAY #16 grams 09/10/24 Unknown Rx mcg/actuation nasal spray,suspension (Flonase Allergy Relief) famotidine 40 mg tablet 40 mg PO QDAY #30 tabs 10/14/24 Unknown Rx omeprazole 40 mg capsule,delayed 40 mg PO BID #90 caps 10/14/24 Unknown Rx release paroxetine HCl 25 mg 25 mg PO BID 10/16/24 10/24/24 History tablet,extended release 24 hr (Paxil CR) carbamazepine 200 mg 200 mg PO TID 10/22/24 10/24/24 History tablet,extended release,12 hr (Tegretol XR) lamotrigine 150 mg tablet 150 mg PO BID 10/22/24 10/24/24 History (Lamictal) liothyronine 5 mcg tablet 5 mcg PO DAILY 10/22/24 10/24/24 History lorazepam 0.5 mg tablet 0.5 mg PO DAILY PRN anxiety 10/22/24 Unknown History nicotine 14 mg/24 hr daily 1 patch topical DAILY 10/22/24 10/24/24 History transdermal patch Allergy/AdvReac Type Severity Reaction Status Date / Time sulfamethoxazole (From Allergy Other Verified 10/24/24 11:40 Bactrim) Benzodiazepines AdvReac Intermediate Other Verified 10/24/24 11:40 Corticosteroids AdvReac Mild ANXIETY Verified 10/24/24 11:40 (Glucocorticoids) Quinolones AdvReac Mild FATIGUE Verified 10/24/24 11:40 Family History Grandmother Arthritis Mother Multiple sclerosis Surgical History History of wisdom tooth extraction History of thyroidectomy Status post total thyroidectomy History of carpal tunnel release Hx of cholecystectomy Social History household members: children housing: apartment current occupational status: unemployed sexually active: No Smoking Status: Former smoker Electronic Cigarette Use: not used alcohol intake: never substance use type: does not use what type of physical activity do you participate in: none seatbelt use: always do you feel safe at home: Yes ROS Constitutional Constitutional: Denies fatigue, fever(s), poor appetite, weight gain or weight loss Gastrointestinal Gastrointestinal: Denies belching, bloating, change in bowel habits, change in stool character, chewing difficulty, coffee ground emesis, constipation, cramping, diarrhea, dyspepsia, dysphagia, early satiety, excessive flatus, fecal incontinence, heartburn, hematemesis, hematochezia, hemorrhoids, loose stools, melena, nausea, odynophagia, rectal bleeding, tenesmus, vomiting or weight changes Vital Signs Vital Signs Vital Signs: 10/24/24 11:42 10/24/24 11:42 Temperature 98.2 F Temperature Source Temporal Pulse Rate 76 Respiratory Rate 16 Respiratory Pattern Normal Blood Pressure 140/79 H Blood Pressure Mean 99 Blood Pressure Source Monitor Blood Pressure Position Sitting Blood Pressure Location Right Arm Pulse Ox 100 Oxygen Delivery Method Room Air Weight Weight: 194 lb 0.108 oz Body Mass Index (BMI) 33.3 Physical Exam Const alert, oriented x3, no apparent distress and healthy appearing General Appearance: cooperative GI normal to inspection, nondistended, normoactive bowel sounds, soft to palpation, non-tender and non-distended Percussion: normal to percussion Rectal Exam: deferred Assessment & Plan Assessment/Plan (1) GERD (gastroesophageal reflux disease): PLAN: Assessment and Plan Assessment and Plan (1) GERD (gastroesophageal reflux disease): Status: Chronic Plan: Aminah is a 38 yo female pt here today for evaluation of worsening GERD symptoms over the past 3 weeks. Pt has had a hx of GERD for many years and has been on omeprazole 40 mg daily. SHe was seen in the ED on 09.03.24 for sob, chest pain and reflux symptoms. Work up was unremarkable besides FOBT+ and a slight WBC count. Chest X-ray negative. Troponin negative. UA negative. Vitals stable. In the office today, she has continued symptoms. SOB seems to be the most distressing to her and asks for me to prescribe an inhaler to rule out asthma. I advised she see her PCP for this. She has been taking Carafate which seems to help. I have increased her omeprazole to 40 mg BID and added famotidine 40 mg PRN. SHe will continue Carafate. She will avoid taking Carafate with her other medications. She was scheduled for EGD today to rule out gastritis, esophagitis or peptic ulcer disease. Her vitals including heart rate, BP and pulse ox were all stable. Abd exam was benign and patient appeared comfortable. I advised if SOB continues or worsens she should present back to the ED for evaluation. -Increase omeprazole to 40 mg BID -Start famotidine 40 mg PRN -Continue Carafate -Scheduled for EGD (2) Shortness of breath: Status: Acute Medications: New
[2024-10-24 11:51] LABS: Internal QC Validated? YES +Cl - CLEAR BKGD; Pregnancy, Urine Negative Negative; Record Kit Lot#,Urine Preg 0000964736
--- NOTE | 2024-10-24 12:12 | PCM.PRE.AN2 ---
ASA Classification* ASA Classification ASA Classification: 2 Assessment & Plan Anesthesia* Anesthesia Assessment Anesthesia Assessment: Discussed sedation and/or anesthesia options, risks, benefits, and alternatives with patient/parents/legal guardian/POA. Questions invited. The patient/parents/legal guardian/POA seems to understand and agrees to proceed with anesthesia plan. Reviewed the physical assessment, medical history, allergy history and patient home medications list prior to surgery/procedure/anesthetic and documented any changes. Performed airway and anesthesia risk assessments. Anesthesia Type Anesthesia Type: MAC History Source History Obtained from:: Patient and Chart Anesthesia Focused Assessment* Temperature: 98.2 F Pulse Rate: 76 Blood Pressure: 140/79 Respiratory Rate: 16 Pulse Ox: 100 Oxygen Delivery Method: Room Air Airway Assessment Mouth opens: 2 cm Mallampati Score: II Teeth Condition: Intact Neck Range of motion (ROM): Full ROM Labs Anesthesia Preop lab: CBC WBC 10.9 K/mm3 (4.4-11.0) 09/10/24 11:19 09/10/24 RBC 4.53 M/mm3 (4.2-5.4) 09/10/24 11:19 09/10/24 Hgb 12.8 g/dL (12.0-15.0) 09/10/24 11:19 09/10/24 Hct 39.0 % (37-47) 09/10/24 11:19 09/10/24 Plt Count 402 K/mm3 (150-450) 09/10/24 11:19 09/10/24 CHEMISTRY Potassium 4.3 mmol/L (3.3-5.1) 09/10/24 11:19 09/10/24 Sodium 136 mmol/L (133-145) 09/10/24 11:19 09/10/24 BUN 7 mg/dL (4-19) 09/10/24 11:19 09/10/24 Creatinine 0.62 mg/dL (0.70-1.20) L 09/10/24 11:19 09/10/24 Glucose 108 mg/dL (70-99) H 09/10/24 11:19 09/10/24 TSH 1.160 uIU/mL (0.300-4.200) 09/10/24 11:19 09/10/24 COAG Urine Test Negative Negative 10/24/24 11:30 10/24/24 Tst Clinic Negative 10/28/23 11:36 10/28/23 Pre-Assessment Diagnosis/Proposed Procedure Planned Operative Procedure(s): EGD Anesthesia History Anesthesia History - traveler changer: Anesthesia History - traveler changer Hx Hospitalization No 10/22/24 14:30 Any Problems With Anesthesia No 10/22/24 14:30 Cholinesterase deficiency No 10/22/24 14:30 You/Your Family Experience No 10/22/24 14:30 fever (hyperthermia) with Relationship Recent Exposure to Contagious No 10/24/24 11:42 Disease Does patient have nerve No 10/22/24 14:30 stimulator Patient instructed to have device shut off --Does patient have Pacemaker No 10/24/24 11:42 or ICD? When Was Last Pacemaker Check QUESTION #4 FULL TEXT: You/Your Family Experience fever (hyperthermia) with Anesthesia Last Oral Intake Last Oral intake: Last Oral Intake NPO since 07:30 10/24/24 11:42 Meds taken in AM with sips of Yes 10/24/24 11:42 water? Meds patient instructed to LIOTHYROXINE, SYNTHROID, 10/24/24 11:42 take am of surgery LAMICTAL, TEGRETOL, PAXIL PONV PONV - traveler changer: PONV - traveler changer Female Yes 10/22/24 14:30 HX of Motion Sickness No 10/22/24 14:30 HX of N/V After Surgery No 10/22/24 14:30 Non-Smoker Yes 10/22/24 14:30 Duration of Surgery greater No 10/22/24 14:30 than 60 minutes Number of Risk Factors 2 10/22/24 14:30 PONV Score Moderate Risk 10/22/24 14:30 Height & Weight Height & Weight: Anesthesia: Height & Weight Height 5 ft 4 in 10/24/24 11:42 Weight: 88 kg 10/24/24 11:42 Body Mass Index (BMI) 33.3 10/24/24 11:42 Respiratory Assessment Respiratory Assessment - traveler changer: Respiratory Tract Infection Hx - traveler changer Hx Respiratory Tract Infection No 10/22/24 14:30 STOP Sleep Apnea STOP Sleep Apnea - traveler changer: STOP Sleep Apnea - traveler changer Hx Hypertension No 10/22/24 14:30 Hx Sleep Apnea No 10/22/24 14:30 CPAP BIPAP Do you snore loudly (louder No 10/22/24 14:30 than talking or can be heard Do you often feel tired/ No 10/22/24 14:30 fatigued/ sleepy during daytime? Has anyone observed you stop No 10/22/24 14:30 breathing during sleep? STOP Results Negative 10/22/24 14:30 QUESTION #5 FULL TEXT : Do you snore loudly (louder than talking or can be heard through closed doors)? Tobacco Use History Tobacco Use History - traveler changer: Tobacco Use History - traveler changer Tobacco Use Smoking Status Former smoker 10/22/24 14:30 Hx Tobacco Use Yes 10/22/24 14:30 Years Smoking Packs Smoked per Day Smoking Cessation Date was Yes - quit smoking within 15 10/22/24 14:30 within the last 15 years years Hx Smoking Cessation Date Hx Smoking Cessation Counseling Hematologic Medial History Hematologic Hx - traveler changer: Hematologic Medical Hx - rn clinical documentation Hx of Blood Transfusion No 10/22/24 14:30 Hx of Transfusion in last 3 No 10/22/24 14:30 Months Date of Last Transfusion (if within last 3 months) Ever experience any problems No 10/22/24 14:30 with transfusion(s)? Specify any problems Hx of Preganancy in last 3 No 10/22/24 14:30 Months Nurse Filling Out Transfusion MGRILEATHA 10/22/24 14:30 & Questions: Date: 10/22/24 10/22/24 14:30 Time: 14:32 10/22/24 14:30 Patient unable to answer at this time (ie. confused, unrespo /Reproduction History /Reproductive History - traveler changer: /Reproductive Hx- traveler changer Hx Now No 10/22/24 14:30 Gestational Age (in weeks): EDC: Hx Hx Para Hx Section SAB No 10/22/24 14:30 Active Medications Active Medications: Current Medications Generic Name Dose Route Start Last Admin Trade Name Freq PRN Reason Stop Dose Admin Lactated Ringer's 1,000 mls @ 15 mls/hr 10/24/24 11:45 10/24/24 11:50 IV 15 mls/hr .Q48H WHITNEY Administration PFSH Medical History Fatty liver Migraine headache Smoker Difficulty chewing History of GI bleed History of ulceration Asthma History of irregular heartbeat Fullness in both ears Urinary frequency Malaise and fatigue GERD (gastroesophageal reflux disease) Adrenal adenoma Wears glasses MRSA infection Cancer Depression Anxiety History of steroid therapy Thyroid disease Anemia Back pain Injury of back Injury of head and neck Gastric reflux Shortness of breath on exertion Fibromyalgia History of pain when walking Chest pain Thyroid cancer Left wrist pain Unspecified mood [affective] disorder Hx of gastroesophageal reflux (GERD) Hx of osteoarthritis Hx of gallstones Hx of carpal tunnel syndrome Home Medications ?Medication ?Instructions ?Recorded ?Last Taken ?Type Lactobacillus 1 cap PO DAILY #30 caps 03/23/22 Unknown Rx acidophilus-Bifidobac.animalis 15.5 billion cell capsule (Zelac) lurasidone 80 mg tablet (Latuda) 60 mg PO QHS 04/19/22 02/09/23 History multivitamin with minerals-folic 1 tab PO DAILY #30 tabs 09/07/22 Unknown Rx acid 200 mcg chewable tablet (Women's Multivitamin Gummies) lactobacillus combo #5 150 mg (2 150 mg PO PRN 01/27/23 02/07/23 History billion cell) tablet,delayed release (Provella) methylcellulose (laxative) 500 mg 500 mg PO PRN 01/27/23 Unknown History tablet (Fiber Laxative (methylcellulose)) melatonin 10 mg capsule 10 mg PO QHS 02/02/23 02/09/23 History neomycin-bacitracn Zn-polymyx 3.5 1 applic topical DAILY apply to 04/07/23 Unknown Rx mg-400 unit-5,000 unit/gram top scar tissue as directed. #14.2 oint grams kjvrwttf-vuaqwifru-spipoleek 3.5 4 drp otic (ear) TID 7 days #10 mL 06/25/23 Unknown Rx mg-10,000 unit/mL-1 % ear drops,susp ondansetron HCl 4 mg tablet 4 mg PO Q8H PRN nausea and 07/18/23 Unknown Rx vomiting #60 tabs ascorbic acid (vitamin C) 1,000 mg 1 g PO DAILY #90 tabs 08/07/23 Unknown Rx tablet phenazopyridine 100 mg tablet 100 mg PO TID PRN pain #30 tabs 10/28/23 Unknown Rx (Pyridium) ferrous sulfate 325 mg (65 mg 325 mg PO Q OTHER DAY #90 tabs 11/08/23 Unknown Rx iron) tablet (Feosol) tizanidine 4 mg tablet 4 mg PO QHS PRN muscle spasticity 01/04/24 Unknown Rx #90 tabs acetaminophen 500 mg capsule 1,000 mg (2 x 500 mg) PO BID PRN 01/08/24 Unknown Rx pain #180 caps calcium 500 mg (as 1 tab PO BID 09/02/24 Unknown History carbonate)-vitamin D3 5 mcg (200 unit) tablet (Oysco 500/D) hydroxyzine pamoate 50 mg capsule 50 mg PO QHS 09/02/24 Unknown History levothyroxine 137 mcg tablet 137 mcg PO DAILY 09/02/24 10/24/24 History (Synthroid) sucralfate 1 gram tablet (Carafate) 1 g PO BID #20 tabs 09/02/24 Unknown Rx albuterol sulfate 90 mcg/actuation 1 - 2 puff inhalation Q4H PRN PRN 09/05/24 Unknown Rx aerosol inhaler (Ventolin HFA) Wheezing ##1 cholecalciferol (vitamin D3) 125 125 mcg PO QDAY #90 caps 09/10/24 Unknown Rx mcg (5,000 unit) capsule fluticasone propionate 50 2 spray intranasal QDAY #16 grams 09/10/24 Unknown Rx mcg/actuation nasal spray,suspension (Flonase Allergy Relief) famotidine 40 mg tablet 40 mg PO QDAY #30 tabs 10/14/24 Unknown Rx omeprazole 40 mg capsule,delayed 40 mg PO BID #90 caps 10/14/24 Unknown Rx release paroxetine HCl 25 mg 25 mg PO BID 10/16/24 10/24/24 History tablet,extended release 24 hr (Paxil CR) carbamazepine 200 mg 200 mg PO TID 10/22/24 10/24/24 History tablet,extended release,12 hr (Tegretol XR) lamotrigine 150 mg tablet 150 mg PO BID 10/22/24 10/24/24 History (Lamictal) liothyronine 5 mcg tablet 5 mcg PO DAILY 10/22/24 10/24/24 History lorazepam 0.5 mg tablet 0.5 mg PO DAILY PRN anxiety 08/19/25 Unknown History nicotine 14 mg/24 hr daily 1 patch topical DAILY 10/22/24 10/24/24 History transdermal patch Allergy/AdvReac Type Severity Reaction Status Date / Time sulfamethoxazole (From Allergy Other Verified 10/24/24 11:40 Bactrim) Benzodiazepines AdvReac Intermediate Other Verified 10/24/24 11:40 Corticosteroids AdvReac Mild ANXIETY Verified 10/24/24 11:40 (Glucocorticoids) Quinolones AdvReac Mild FATIGUE Verified 10/24/24 11:40 Family History Grandmother Arthritis Mother Multiple sclerosis Surgical History History of wisdom tooth extraction History of thyroidectomy Status post total thyroidectomy History of carpal tunnel release Hx of cholecystectomy Social History household members: children housing: apartment current occupational status: unemployed sexually active: No Smoking Status: Former smoker Electronic Cigarette Use: not used alcohol intake: never substance use type: does not use what type of physical activity do you participate in: none seatbelt use: always do you feel safe at home: Yes Review of Systems (Anesthesia) ROS Narrative System reviewed and no additional complaints, except as documented.
--- NOTE | 2024-10-24 12:15 | EGD_PTH ---
PATIENT: AMBER BARRETT LOC: EN U#:[id number] AGE/SX: 39/F ROOM: RE10/24/[address]: Dr. Chad Farris DO : 1985 BED: DIS: 10/24/2024 SPEC #: [id number] RECD: 10/24/24 13:22 STATUS: BRYAN RETasia #: [id number] THA: 10/24/24 12:[address]: Chad Farris DEPT: SURGICAL PATHOLOGY RECD BY: Adiel Fournier ENTERED: 10/24/24 14:51 SP TYPE: EGD BIOPSY BECCA DR: Dr. Garrick Lopes MD Tissues: A - Esophagus, NOS B - Gastric mucous membrane C - Duodenum, NOS Procedures: Immunohistochemical Stains Surgery Specimen Level IV HEADER OPERATION: EGD with biopsy PRE-OP DIAGNOSIS: GERD TISSUE SUBMITTED: A- Random esophagus biopsy, B- Gastric body biopsy, C- Duodenum biopsy MICROSCOPIC DIAGNOSIS A. Esophagus, random biopsy: * Benign squamous epithelium with no pathologic change B. Stomach, gastric body, biopsy: * Oxyntic mucosa with mild chronic focal active inflammation * The immunostain for Helicobacter pylori organisms is negative C. Small intestine, duodenum, biopsy: * Small bowel mucosa with no pathologic change MICROSCOPIC DESCRIPTION Slides are reviewed. All matched controls reacted appropriately. These tests were developed and their performance characteristics determined by [facility]. They may not have been cleared or approved by the U.[place]. Food and Drug Administration. The FDA has determined that such clearance or approval is not necessary. The above immunohistochemical/dualISH markers are viewed by the Pathologist. GROSS DESCRIPTION A. Received in fixative is one container labeled with the patient's name and designated Random esophagus biopsy. The specimen consists of two irregular fragments of light schulz soft tissue that measure 0.3 and 0.5 cm. The specimen is totally submitted in one cassette. B. Received in fixative is one container labeled with the patient's name and designated Gastric body biopsy. The specimen consists of two irregular fragments of light schulz soft tissue that measure 0.7 and 0.9 cm. The specimen is totally submitted in one cassette. C. Received in fixative is one container labeled with the patient's name and designated Duodenum biopsy. The specimen consists of one irregular fragment of light schulz soft tissue that measures 0.4 cm. The specimen is totally submitted in one cassette. [place] 10/24/2024 CPT:70711z0,58855
[2024-10-24] MEDS: Lidocaine 1% (5 ml sdv) 5 ML Vial 10 ML IV (12:27)
--- NOTE | 2024-10-24 12:44 | PCM.POST.ANE ---
Anesthesia: Postop Eval I Current Vital Signs Temperature: 97 F Pulse Rate: 94 Blood Pressure: 116/86 Respiratory Rate: 20 Pulse Ox: 98 Oxygen Delivery Method: Room Air Assessment Airway patent: Yes Spontaneous unlabored respirations: Yes Mental status: Awake and Calm nausea: No Vomiting: No Anesthesia Complication: No Fluid Hydration Crystalloid volume administer (ml): 100 Total IV fluid infused: 100 Progress Note Anesthesia document: Postop Eval 1 completed: Yes
--- NOTE | 2024-10-24 12:49 | OP.PROVAT_ITS ---
10/24/2024 Garrick Lopes MD [address] [place] [address] [place] [address] Re : Upper GI endoscopy procedure for Aminah Mallory Dear Dr. Lopes This procedure was performed on October. My impressions and recommendations are as follows: Impressions : - Normal esophagus. - Erythematous mucosa in the gastric body. Biopsied. - No gross lesions in the entire examined duodenum. Biopsied. - Biopsies were taken with a cold forceps for evaluation of eosinophilic esophagitis. Recommendations : - Discharge patient to home. - Resume previous diet. - Continue present medications. - Await pathology results. My findings are described in the full procedure note, which is enclosed. If I can be of further assistance, please feel free to contact me at . Sincerely, Chad Farris, 10/24/2024 12:49:21 PM This report has been signed electronically.
--- NOTE | 2024-10-24 12:49 | OP.EGD_ITS ---
Patient Name: Aminah Mallory Procedure Date: 10/24/2024 12:26 PM Date of : 1985 Age: 39 Procedure: Upper GI endoscopy Indications: Heartburn, Failure to respond to medical treatment Providers: Chad Farris DO Referring MD: Chad Farris DO Medicines: Monitored Anesthesia Care Patient Profile: This is a 39 year old female. Refer to note in patient chart for documentation of history and physical. Patient has symptoms of chronic chest pain. Complications: No immediate complications. Procedure: Pre-Anesthesia Assessment: - Prior to the procedure, a History and Physical was performed, and patient medications and allergies were reviewed. The patient is competent. The risks and benefits of the procedure and the sedation options and risks were discussed with the patient. All questions were answered and informed consent was obtained. Patient identification and proposed procedure were verified by the physician in the pre-procedure area. Mental Status Examination: alert and oriented. Airway Examination: normal oropharyngeal airway and neck mobility. Respiratory Examination: clear to auscultation. CV Examination: normal. Prophylactic Antibiotics: The patient does not require prophylactic antibiotics. Prior Anticoagulants: The patient has taken no anticoagulant or antiplatelet agents except for NSAID medication. ASA Grade Assessment: II - A patient with mild systemic disease. After reviewing the risks and benefits, the patient was deemed in satisfactory condition to undergo the procedure. The anesthesia plan was to use monitored anesthesia care (MAC). Immediately prior to administration of medications, the patient was re-assessed for adequacy to receive sedatives. The heart rate, respiratory rate, oxygen saturations, blood pressure, adequacy of pulmonary ventilation, and response to care were monitored throughout the procedure. The physical status of the patient was re-assessed after the procedure. After obtaining informed consent, the endoscope was passed under direct vision. Throughout the procedure, the patient's blood pressure, pulse, and oxygen saturations were monitored continuously. The Endoscope was introduced through the mouth, and advanced to the second part of duodenum. The upper GI endoscopy was accomplished without difficulty. The patient tolerated the procedure well. Scope In: 12:35:32 PM Scope Out: 12:42:39 PM Total Procedure Duration Time 0 hours 7 minutes 7 seconds Findings: The examined esophagus was normal. Biopsies were obtained from the proximal and distal esophagus with cold forceps for histology of suspected eosinophilic esophagitis. Patchy mildly erythematous mucosa without bleeding was found in the gastric body. Biopsies were taken with a cold forceps for histology. Biopsies were taken with a cold forceps for Helicobacter pylori testing. Verification of patient identification for the specimen was done. Estimated blood loss was minimal. No gross lesions were noted in the entire examined duodenum. Biopsies were taken with a cold forceps for histology. Verification of patient identification for the specimen was done. Estimated blood loss was minimal. Impression: - Normal esophagus. - Erythematous mucosa in the gastric body. Biopsied. - No gross lesions in the entire examined duodenum. Biopsied. - Biopsies were taken with a cold forceps for evaluation of eosinophilic esophagitis. Recommendation: - Discharge patient to home. - Resume previous diet. - Continue present medications. - Await pathology results. Procedure Code(s): --- Professional --- 54761, Esophagogastroduodenoscopy, flexible, transoral; with biopsy, single or multiple CPT copyright 2021 [employer]. All rights reserved. The codes documented in this report are preliminary and upon report specialist review may be revised to meet current compliance requirements. Chad Farris DO 10/24/2024 12:49:21 PM This report has been signed electronically. Number of Addenda: 0 Note Initiated On: 10/24/2024 12:26 PM
--- NOTE | 2024-10-24 12:49 | POSTOPAN2_ITS ---
Anesthesia Postop Eval I Sum Postop Eval Completion status Anesthesia document: Postop Eval 1 completed: Yes Anesthesia Postop Eval I Summary Anesthesia Postop Eval I Summary: Anesthesia Postop Eval I: Assessment Summary Airway patent Yes 10/24/24 12:44 SLAB MILLER OPERATOR.MDOT Spontaneous unlabored Yes 10/24/24 12:44 SLAB MILLER OPERATOR.MDOT respirations Mental status Awake,Calm 10/24/24 12:44 SLAB MILLER OPERATOR.MDOT nausea No 10/24/24 12:44 SLAB MILLER OPERATOR.MDOT Vomiting No 10/24/24 12:44 SLAB MILLER OPERATOR.MDOT Anesthesia Postop Eval I: Fluid Summary Crystalloid volume administer 100 10/24/24 12:44 SLAB MILLER OPERATOR.MDOT (ml) Colloids volume administered ( ml) Blood Product volume administered (ml) Total IV fluid infused 100 10/24/24 12:44 SLAB MILLER OPERATOR.MDOT Anesthesia Postop Eval I: Summary Notes Anesthesia Complication No 10/24/24 12:44 SLAB MILLER OPERATOR.MDOT Anesthesia Complication Comment: Post-operative progress note Anesthesia: Postop Eval II Evaluation Mental status: Awake and Calm Pain Level: 0 nausea: No Vomiting: No Complications Anesthesia Complication: No
--- NOTE | 2024-10-24 12:49 | PCM.POSTANE2 ---
Anesthesia Postop Eval I Sum Postop Eval Completion status Anesthesia document: Postop Eval 1 completed: Yes Anesthesia Postop Eval I Summary Anesthesia Postop Eval I Summary: Anesthesia Postop Eval I: Assessment Summary Airway patent Yes 10/24/24 12:44 ADMINISTRATIVE OFFICE MANAGER.MDOT Spontaneous unlabored Yes 10/24/24 12:44 ADMINISTRATIVE OFFICE MANAGER.MDOT respirations Mental status Awake,Calm 10/24/24 12:44 ADMINISTRATIVE OFFICE MANAGER.MDOT nausea No 10/24/24 12:44 ADMINISTRATIVE OFFICE MANAGER.MDOT Vomiting No 10/24/24 12:44 ADMINISTRATIVE OFFICE MANAGER.MDOT Anesthesia Postop Eval I: Fluid Summary Crystalloid volume administer 100 10/24/24 12:44 ADMINISTRATIVE OFFICE MANAGER.MDOT (ml) Colloids volume administered ( ml) Blood Product volume administered (ml) Total IV fluid infused 100 10/24/24 12:44 ADMINISTRATIVE OFFICE MANAGER.MDOT Anesthesia Postop Eval I: Summary Notes Anesthesia Complication No 10/24/24 12:44 ADMINISTRATIVE OFFICE MANAGER.MDOT Anesthesia Complication Comment: Post-operative progress note Anesthesia: Postop Eval II Evaluation Mental status: Awake and Calm Pain Level: 0 nausea: No Vomiting: No Complications Anesthesia Complication: No
--- NOTE | 2024-10-24 13:13 | POSTOPAN2_ITS ---
Anesthesia Postop Eval I Sum Postop Eval Completion status Anesthesia document: Postop Eval 1 completed: Yes Anesthesia Postop Eval I Summary Anesthesia Postop Eval I Summary: Anesthesia Postop Eval I: Assessment Summary Airway patent Yes 10/24/24 12:44 WEB DEVELOPMENT DIRECTOR.MDOT Spontaneous unlabored Yes 10/24/24 12:44 WEB DEVELOPMENT DIRECTOR.MDOT respirations Mental status Awake,Calm 10/24/24 12:49 WEB DEVELOPMENT DIRECTOR.MDOT nausea No 10/24/24 12:49 WEB DEVELOPMENT DIRECTOR.MDOT Vomiting No 10/24/24 12:49 WEB DEVELOPMENT DIRECTOR.MDOT Anesthesia Postop Eval I: Fluid Summary Crystalloid volume administer 100 10/24/24 12:44 WEB DEVELOPMENT DIRECTOR.MDOT (ml) Colloids volume administered ( ml) Blood Product volume administered (ml) Total IV fluid infused 100 10/24/24 12:44 WEB DEVELOPMENT DIRECTOR.MDOT Anesthesia Postop Eval I: Summary Notes Anesthesia Complication No 10/24/24 12:49 WEB DEVELOPMENT DIRECTOR.MDOT Anesthesia Complication Comment: Post-operative progress note Anesthesia: Postop Eval II Evaluation Mental status: Awake Pain Level: 0 nausea: No Vomiting: No Complications Anesthesia Complication: No
--- NOTE | 2024-10-24 13:13 | PCM.POSTANE2 ---
Anesthesia Postop Eval I Sum Postop Eval Completion status Anesthesia document: Postop Eval 1 completed: Yes Anesthesia Postop Eval I Summary Anesthesia Postop Eval I Summary: Anesthesia Postop Eval I: Assessment Summary Airway patent Yes 10/24/24 12:44 SUB PLANT MANAGER.MDOT Spontaneous unlabored Yes 10/24/24 12:44 SUB PLANT MANAGER.MDOT respirations Mental status Awake,Calm 10/24/24 12:49 SUB PLANT MANAGER.MDOT nausea No 10/24/24 12:49 SUB PLANT MANAGER.MDOT Vomiting No 10/24/24 12:49 SUB PLANT MANAGER.MDOT Anesthesia Postop Eval I: Fluid Summary Crystalloid volume administer 100 10/24/24 12:44 SUB PLANT MANAGER.MDOT (ml) Colloids volume administered ( ml) Blood Product volume administered (ml) Total IV fluid infused 100 10/24/24 12:44 SUB PLANT MANAGER.MDOT Anesthesia Postop Eval I: Summary Notes Anesthesia Complication No 10/24/24 12:49 SUB PLANT MANAGER.MDOT Anesthesia Complication Comment: Post-operative progress note Anesthesia: Postop Eval II Evaluation Mental status: Awake Pain Level: 0 nausea: No Vomiting: No Complications Anesthesia Complication: No
== END 2024-10-24 13:20 | disposition home or self-care (01) ==
LOC: EN 11:27 → AC 11:28
PROVIDERS: Anesthesiology; PCP Internal Medicine; Referring Provider Internal Medicine; Visit Provider Internal Medicine Gastroenterology
PROC: 0DJ08ZZ Inspection of Upper Intestinal Tract, Via Natural or Artificial Opening Endoscopic (ICD-10-PCS; CPT 43235; principal; 2024-10-24 12:10)
DX: K21.9 Gastro-esophageal reflux disease without esophagitis (principal); Z87.891 Personal history of nicotine dependence; R06.02 Shortness of breath; D64.9 Anemia, unspecified; Z79.899 Other long term (current) drug therapy; F32.A Depression, unspecified; F41.9 Anxiety disorder, unspecified; Z90.49 Acquired absence of other specified parts of digestive tract; K31.89 Other diseases of stomach and duodenum; K29.50 Unspecified chronic gastritis without bleeding
CPT/HCPCS: 43239; 81025; 88305; 88342

== ENCOUNTER → 2024-12-09 | Outpatient (CLI) | payer MEDICAID, SELFPAY ==
--- NOTE | 2024-12-09 09:52 | ECHOD_ITS ---
Reason For Study Reason For Study: Chest Pain Procedure This was a 2D Doppler, Color Flow transthoracic echocardiogram. Myocardial strain analysis was performed in this exam to aid in the assessment of cardiac function. Exam performed in department. Left Ventricle Normal LV size. The global longitudinal strain = -18.9 % (normal). The left ventricular ejection fraction is 55 %. No regional wall motion abnormalities noted. Right Ventricle Normal RV size. Normal systolic function. Atria Normal left atrium. Normal right atrium. Mitral Valve Normal mitral valve. Tricuspid Valve Normal tricuspid valve. Pulmonic Valve Normal pulmonic valve. Great Vessels Normal aortic root. The pulmonary artery is normal size. Inferior vena cava collapse with respiration. Pericardium/Pleural No pericardial effusion. MMode/2D Measurements & Calculations LVIDd: 4.8 cm IVSd: 0.79 cm Ao root diam: 3.1 cm LVIDs: 3.1 cm LVPWd: 0.82 cm RVDd: 2.9 cm FS: 34.4 % LAV(MOD-bp): 43.7 ml LVAd ap4: 29.6 cm2 SV(MOD-sp4): 44.6 ml LAV(MOD-bp) Indexed: 22.7 ml/m2 LVLd ap4: 7.7 cm SI(MOD-sp4): 23.1 ml/m2 LAV(MOD-sp2): 48.5 ml EDV(MOD-sp4): 91.6 ml LAV(MOD-sp4): 39.7 ml EDV(sp4-el): 97.1 ml LVAs ap4: 19.2 cm2 LVLs ap4: 6.5 cm ESV(MOD-sp4): 47.1 ml ESV(sp4-el): 48.3 ml EF(MOD-sp4): 48.6 % EF(sp4-el): 50.2 % SV(sp4-el): 48.8 ml LA dimension(2D): 4.4 cm LA A4 area: 15.6 cm2 RA A4 area: 13.5 cm2 TAPSE: 1.8 cm Time Measurements MV dec time: 0.16 sec Doppler Measurements & Calculations MV E max oz: 83.3 cm/sec Lat Peak E' Oz: 17.4 cm/sec Med Peak E' Oz: 8.8 cm/sec MV A max oz: 65.6 cm/sec E/E' lat: 4.8 E/E' med: 9.4 MV E/A: 1.3 MV V2 max: 73.9 cm/sec MV P1/2t max oz: 74.7 cm/sec Ao V2 max: 126.1 cm/sec MV max P.2 mmHg MV P1/2t: 50.9 msec Ao max P.4 mmHg MV V2 mean: 43.7 cm/sec Ao V2 mean: 89.5 cm/sec MV mean P.91 mmHg MV dec slope: 429.6 cm/sec2 Ao mean P.6 mmHg MV V2 VTI: 25.1 cm MVA(P1/2t): 4.3 cm2 Ao V2 VTI: 28.3 cm AV (velocity ratio): 0.75 LV V1 max: 102.2 cm/sec PA V2 max: 82.4 cm/sec LV V1 max P.2 mmHg LV V1 mean P.4 mmHg LV V1 mean: 73.1 cm/sec LV V1 VTI: 21.2 cm ECHO/Echo Complete Interpretation Summary Normal LV size. The global longitudinal strain = -18.9 % (normal). The left ventricular ejection fraction is 55 %. Structurally normal valves. Ordering Physician: Anali Card Referring Physician: Anali Card Performed By: Natan Segovia RCS
== END | disposition home or self-care (01) ==
LOC: CVS 09:50
PROVIDERS: PCP Internal Medicine; Referring Provider Nurse Practitioner Family; Visit Provider Nurse Practitioner Family
DX: R06.02 Shortness of breath (principal); R07.89 Other chest pain
CPT/HCPCS: 93306

== ENCOUNTER → 2024-12-10 | Outpatient (CLI) | payer MEDICAID, SELFPAY | END | disposition home or self-care (01) | LOC: LABSPEC 15:47 | PROVIDERS: PCP Internal Medicine | DX: J02.9 Acute pharyngitis, unspecified (principal) | CPT/HCPCS: 87070; 87077; 87186 ==

== ENCOUNTER → 2024-12-13 | Outpatient (CLI) | payer MEDICAID, SELFPAY ==
--- OUTSIDE RECORDS SUMMARY | 2025-03-12 09:26 | XMS RPT_ITS ---
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 Name Role Phone DAVID OSORIO MD Primary Care Physician Un available CONCHA SHARMA Attending Physician Tracie QUIROGA MD, DR JOB Snyder Attending Physician DAVID Azevedo MD Primary Care Physician Un available DR KAVITA VAUGHAN MD Attending Physician DAVID Azevedo MD Primary Care Physician Un available DAVID OSORIO MD Primary Care Physician Un available RAFA KEN DO Attending Physician Unavail DAVID Degroot MD Primary Care Physician Un available RAFA KEN DO Attending Physician Unavail DAVID Degroot MD Primary Care Physician Un available МАРИНА WHELAN DO Attending Physician Unavailable RAFA KEN DO Attending Physician Unavail able PHYSICIAN, NONE Primary Care Physician Unavailab le PHYSICIAN, NONE Primary Care Physician Unavailab purvi SINGH MD, DR PATTERSON Attending Physician DAVID Bishop MD Primary Care Physician Un available МАРИНА WHELAN DO Attending Physician Unavailable RENEA MARIE Attending Physician Unavail DAVID Degroot MD Primary Care Physician Un available REFERRING, TAMRA JOYNER Attending Physician Unavail DAVID Degroot MD Primary Care Physician Un available DAVID OSORIO MD Primary Care Physician Un available RENEA MARIE Attending Physician Unavail able PROBLEMS DATE TYPE CONDITION / CODE ATTENDING STATUS [facility] 12/18/2024 Unknown Encounter for sc reening, unspecified / Z13.9(ICD-10) [facility] 11/27/2024 Unknown Chest pain, unsp ecified / R07.9(ICD-10) [facility] 10/30/2024 Unknown Hypomagnesemia / E83.42(ICD-10) CLEMENT ROBERSON, DR WALLS [facility] 10/29/2024 Unknown Headache, unspec ified / R51.9(ICD-10) KIMBER ROBERSON, DR JOB Snyder [facility] 09/12/2024 Unknown Cervicalgia / M54.2(ICD-10) МАРИНА WHELAN DO [facility] 08/29/2024 Unknown Bronchitis, not specified as acute or chronic / J40(ICD-10) FRANCISCO ROBERSON, DR PATTERSON [facility] 08/21/2024 Unknown Allergy, unspeci fied, initial encounter / T78.40XA(ICD-10) [facility] RESULTS 36 Observed: 04/01/2025 10:55 AM Status: COMPLETED Source: [employer] [facility] Spoke to patient 04/01/25, h er BMI 34.8, with no major co-morbids, informed patient her BMI not within range for WLS (patient states 5'4 / 202.5 lbs) BMI 34.8 and offered her medical appt and patient declined interest in medical appt. 36 Observed: 03/31/2025 6:10 PM Status: COMPLETED Source: [employer] Name of Caller: Aminah Barrett Contact Reason for Appointment: Patient believes she has a BMI of at least 36.0 and is pre-diabetic and has high cholesterol. Patient would like to know if she qualifies for a weight loss program. Patient stated that she will call back with an accurate weight. Patient would like a call back to discuss. Patient [facility] Office Name: [facility] Medication Refills need, if any: N/A Medication Name: N/A 36 Observed: 03/31/2025 3:50 PM Status: COMPLETED Source: [employer] [facility] Name of caller: Aminah Contact phone number: [phone] Relationship to Patient: patient Provider: Any Practice: [facility] Chief Complaint/Reason for Call: Aminah states her PCP at [place] was sending a referral for Bariatric Surgery. Current BMI is 36.9 and patient has prediabetes, chronic pain and high cholesterol. Please advise patient if surgical program will accept and if referral has been received. Best time of day caller can be reached: any Patient advised that office/PCP has 24-48 business hours to return their call: No CBC Collected: 2:29 PM Status: F Source: [facility] TYPE CODE TESTS RESULT OUT OF RANGE REFERENCE UNITS LAB WBC(LOINC) WBC 9.4 4.5-10.8 10 3/mcL LAB RBCCT(LOINC) RBC 4.22 4.10-5.30 10 6/mcL LAB HGB(LOINC) Hgb 11.5 Low 12.0-16.0 G/dL LAB HCT(LOINC) Hct 34.7 34.0-46.0 % LAB MCV(LOINC) MCV 82.1 80.0-99.0 fL LAB MCH(LOINC) MCH 27.2 27.0-33.0 pg LAB MCHC(LOINC) MCHC 33.1 32.0-36.0 G/dL LAB RDW(LOINC) RDW 14.0 11.5-15.5 % LAB PLT(LOINC) Platelet 411 150-450 10 3/mcL LAB MPV(LOINC) MPV 7.1 6.6-10.5 fL Performed By: Eula loaj [address], [place] [address] .AUTO DIFF Collected: 03/12/2025 2:29 PM Status: F Source: [facility] TYPE CODE TESTS RESULT OUT OF RANGE REFERENCE UNITS LAB JENELLE(LOINC) Neutrophil % 66.4 50.0-75.0 % LAB LYM(LOINC) Lymphocyte % 25.7 20.0-40.0 % LAB MON(LOINC) Monocyte % 6.4 2.0-13.0 % LAB EO(LOINC) Eosinophil % 0.9 0.0-6.0 % LAB BAS(LOINC) Basophil % 0.6 0.0-2.5 % LAB ABLYM(LOINC) Lymphocyte, Absolute 2.4 0.9-4.3 10 3/mcL LAB LORY(LOINC) Monocyte, Absolute 0.6 0.1-1.4 10 3/mcL LAB AEOS(LOINC) Eosinophil, Absolute 0.1 0.0-0.7 10 3/mcL LAB ABAS(LOINC) Basophil, Absolute 0.1 0.0-0.3 10 3/mcL Performed By: Eula loja [address] [place] [id number] .NEUABS Collected: 2:29 PM Status: F Source: [facility] TYPE CODE TESTS RESULT OUT OF RANGE REFERENCE UNITS LAB ANEU(LOINC) Neutrophil, Absolute 6.2 2.3-8.1 10 3/mcL Performed By: Eula Mar [address] [address] MG Collected: 03/12/2025 2:29 PM Status: F Source: [facility] TYPE CODE TESTS RESULT OUT OF RANGE REFERENCE UNITS LAB MG(LOINC) Magnesium Lvl 2.0 1.8-2.4 mg/dL Performed By: Eula Mar [address] [address] TSH Collected: 2:29 PM Status: F Source: [facility] TYPE CODE TESTS RESULT OUT OF RANGE REFERENCE UNITS LAB TSH(LOINC) TSH 1.06 0.36-3.74 mcIU/mL Performed By: Eula Mar [address] [address] FT4 Collected: 2:29 PM Status: F Source: [facility] TYPE CODE TESTS RESULT OUT OF RANGE REFERENCE UNITS LAB FT4(LOINC) Free T4 0.81 0.76-1.46 ng/dL Performed By: Eula loja [address] [place] [id number] CMP Collected: 03/12/2025 2:29 PM Status: F Source: [facility] TYPE CODE TESTS RESULT OUT OF RANGE REFERENCE UNITS LAB GLU(LOINC) Glucose Level 87 70-105 mg/dL LAB NA(LOINC) Sodium Level 137 136-145 mmol/L LAB K(LOINC) Potassium Level 4.1 3.5-5.1 mmol/L LAB CL(LOINC) Chloride 100 98-107 mmol/L LAB CO2(LOINC) CO2 29 22-29 mmol/L LAB EBAL(LOINC) Electrolyte Balance 8.0 4.0-15.0 mEq/L LAB BUN(LOINC) BUN 10 7-18 mg/dL LAB CRE(LOINC) Creatinine Lvl (s) 0.59 0.51-0.95 mg/dL LAB BC(LOINC) BUN/Creatinine Ratio 17 7-27 ratio LAB CA(LOINC) Calcium Lvl 8.7 8.4-10.2 mg/dL LAB PROT(LOINC) Total Protein 7.8 6.4-8.2 G/dL LAB ALB(LOINC) Albumin Level 3.6 3.5-5.0 G/dL LAB GLB(LOINC) Globulin 4.2 2.7-4.4 G/dL LAB AG(LOINC) A/G Ratio 0.9 Low 1.1-2.5 ratio LAB BILT(LOINC) Bili Total 0.2 0.2-1.0 mg/dL LAB AP(LOINC) Alk Phos 89 40-135 U/L LAB AST(LOINC) AST/SGOT 11 10-40 U/L LAB ALT(LOINC) ALT/SGPT 26 14-59 U/L Performed By: Eula Mar [address] [address] .GFR Collected: 03/12/2025 2:29 PM Status: F Source: [facility] TYPE CODE TESTS RESULT OUT OF RANGE REFERENCE UNITS LAB eGFR(LOINC) Estimated Glomerular Filtration Rate 118 ml/min/1. 73sqm Result Comment: Stages of Chronic Kidney Disease (CKD) Stage Description eGFR(ml/min/1.73 sq.m.) CKD 1 Normal kidney function or >=90 normal kidney function with possible kidney damage (ex. Proteinuria) CKD 2 Kidney damage with mild loss 60-89 of kidney function CKD 3a Mild to moderate loss of kidney 45-59 function CKD 3b Moderate to severe loss of 30-44 of kidney function CKD 4 Severe loss of kidney function 15-29 CKD 5 Kidney failure <15 Performed By: Eula loja [address], [place] [address] LIPID Collected: 03/12/2025 2:29 PM Status: F Source: [facility] TYPE CODE TESTS RESULT OUT OF RANGE REFERENCE UNITS LAB CHOL(LOINC) Cholesterol 190 0-200 mg/dL Result Comment: Cholesterol Reference Interval: Less than 200 Desirable 200-239 Borderline high risk 240 and above High risk LAB TRIG(LOINC) Triglycerides 133 0-150 mg/dL Result Comment: Triglyceride Reference Interval: Less than 150 Normal 150-199 Borderline high risk 200-499 High risk 500 or higher Very high risk LAB HD(LOINC) HDL Cholesterol 78 High 40-60 mg/dL LAB LDL(LOINC) LDL Cholesterol 85 0-130 mg/dL Performed By: Eula loja [address] [place] [address] FT3 Collected: 2:29 PM Status: F Source: [facility] TYPE CODE TESTS RESULT OUT OF RANGE REFERENCE UNITS LAB FT3(LOINC) Free T3 2.18 Low 2.30-4.00 pg/mL Performed By: Eula loja [address] [place] [address] CBC Collected: 5 1:53 PM Status: F Source: [facility] TYPE CODE TESTS RESULT OUT OF RANGE REFERENCE UNITS LAB WBC(LOINC) WBC 11.9 High 4.5-10.8 10 3/mcL LAB RBCCT(LOINC) RBC 4.40 4.10-5.30 10 6/mcL LAB HGB(LOINC) Hgb 12.4 12.0-16.0 G/dL LAB HCT(LOINC) Hct 36.6 34.0-46.0 % LAB MCV(LOINC) MCV 83.1 80.0-99.0 fL LAB MCH(LOINC) MCH 28.1 27.0-33.0 pg LAB MCHC(LOINC) MCHC 33.9 32.0-36.0 G/dL LAB RDW(LOINC) RDW 14.3 11.5-15.5 % LAB PLT(LOINC) Platelet 439 150-450 10 3/mcL LAB MPV(LOINC) MPV 6.7 6.6-10.5 fL Performed By: Eula loja [address] [place] [id number] .AUTO DIFF Collected: 12/18/2024 1:53 PM Status: F Source: [facility] TYPE CODE TESTS RESULT OUT OF RANGE REFERENCE UNITS LAB JENELLE(LOINC) Neutrophil % 89.6 High 50.0-75.0 % LAB LYM(LOINC) Lymphocyte % 7.7 Low 20.0-40.0 % LAB MON(LOINC) Monocyte % 2.3 2.0-13.0 % LAB EO(LOINC) Eosinophil % 0.1 0.0-6.0 % LAB BAS(LOINC) Basophil % 0.3 0.0-2.5 % LAB ABLYM(LOINC) Lymphocyte, Absolute 0.9 0.9-4.3 10 3/mcL LAB LORY(LOINC) Monocyte, Absolute 0.3 0.1-1.4 10 3/mcL LAB AEOS(LOINC) Eosinophil, Absolute 0.0 0.0-0.7 10 3/mcL LAB ABAS(LOINC) Basophil, Absolute 0.0 0.0-0.3 10 3/mcL Performed By: Eula Mar [address] [address] .NEUABS Collected: 1:53 PM Status: F Source: [facility] CODE TESTS RESULT OUT OF RANGE REFERENCE UNITS LAB ANEU(LOINC) Neutrophil, Absolute 10.7 High 2.3-8.1 10 3/mcL Performed By: Eula loja [address] [place] [address] .MDW Collected: 12/18/2024 1:53 PM Status: F Source: [facility] TYPE CODE TESTS RESULT OUT OF RANGE REFERENCE UNITS LAB MDW(LOINC) Monocyte Distribution Width 17.56 0.00-20.00 Result Comment: For ED adult patients suspected of sepsis, MDW<=20.0 does not rule out sepsis or risk of sepsis Performed By: Eula loja [address] [place] [address] BMP Collected: 12/18/2024 1:53 PM Status: F Source: [facility] TYPE CODE TESTS RESULT OUT OF RANGE REFERENCE UNITS LAB GLU(LOINC) Glucose Level 123 High 70-105 mg/dL LAB NA(LOINC) Sodium Level 136 136-145 mmol/L LAB K(LOINC) Potassium Level 4.6 3.5-5.1 mmol/L LAB CL(LOINC) Chloride 101 98-107 mmol/L LAB CO2(LOINC) CO2 28 22-29 mmol/L LAB EBAL(LOINC) Electrolyte Balance 7.0 4.0-15.0 mEq/L LAB BUN(LOINC) BUN 13 7-18 mg/dL LAB CRE(LOINC) Creatinine Lvl (s) 0.44 Low 0.51-0.95 mg/dL LAB BC(LOINC) BUN/Creatinine Ratio 30 High 7-27 ratio LAB CA(LOINC) Calcium Lvl 9.3 8.4-10.2 mg/dL Performed By: Eula loja [address] [place] [address] .GFR Collected: 12/18/2024 1:53 PM Status: F Source: [facility] TYPE CODE TESTS RESULT OUT OF RANGE REFERENCE UNITS LAB eGFR(LOINC) Estimated Glomerular Filtration Rate >120 ml/min/1. 73sqm Result Comment: Stages of Chronic Kidney Disease (CKD) Stage Description eGFR(ml/min/1.73 sq.m.) CKD 1 Normal kidney function or >=90 normal kindney function with possible kidney damage (ex. Proteinuria) CKD 2 Kidney damage with mild loss 60-89 of kidney function CKD 3a Mild to moderate loss of kidney 45-59 function CKD 3b Moderate to severe loss of 30-44 of kindey function CKD 4 Severe loss of kidney function 15-29 CKD 5 Kidney failure <15 Note: (go live 2024) the eGFR calculation was updated to the 2020 CKD-EPI creatinine equation without a race factor to calculate the eGFR results. Performed By: Eula loja [address] [place] [id number] LAC Collected: 12/18/2024 1:53 PM Status: F Source: [facility] TYPE CODE TESTS RESULT OUT OF RANGE REFERENCE UNITS LAB LAC(LOINC) Lactic Acid Lvl 1.5 0.4-2.0 mmol/L Performed By: Eula loja [address] [place] [address] SOFT TISSUE NECK W/ CONTRAST Observed: 12/10/2024 9:30 AM Status: F Source: [facility] ORIGINAL EXAMINATION: CT OF THE NECK SOFT TISSUE WITH CONTRAST 12/10/2024 TECHNIQUE: CT of the neck was performed with the administration of intravenous contrast. Multiplanar reformatted images are provided for review. Automated exposure control, iterative reconstruction, and/or weight based adjustment of the mA/kV was utilized to reduce the radiation dose to as low as reasonably achievable. COMPARISON: None. HISTORY: ORDERING SYSTEM PROVIDED HISTORY: Reason for Exam: PAIN IN THROAT FINDINGS: PHARYNX/LARYNX: There is mild enlargement of the tonsillar pillars which appears symmetric. The tongue is normal in appearance. The valleculae, epiglottis, aryepiglottic folds and pyriform sinuses appear unremarkable. The true and false vocal cords are normal in appearance. No mass or abscess is seen. SALIVARY GLANDS/THYROID: The parotid and submandibular glands appear unremarkable. The thyroid gland appears unremarkable. LYMPH NODES: Enlarged submandibular and level 2 lymph nodes bilaterally. SOFT TISSUES: No appreciable soft tissue swelling or mass is seen. BRAIN/ORBITS/SINUSES: The visualized portion of the intracranial contents appear unremarkable. The visualized portion of the orbits, paranasal sinuses and mastoid air cells demonstrate no acute abnormality. LUNG APICES/SUPERIOR MEDIASTINUM: No focal consolidation is seen within the visualized lung apices. No superior mediastinal lymphadenopathy or mass. The visualized portion of the trachea appears unremarkable. BONES: No aggressive appearing lytic or blastic bony lesion. IMPRESSION: Tonsillar enlargement suggestive of tonsillitis with prominent level 2 lymph nodes presumably reactive. No parapharyngeal abscess or critical airway narrowing. Interpreted by: Andres Dutta Preliminary Report By: Andres Dutta Electronically signed By Andres Dutta Dictated Date: 12/10/2024 10:14:36 AM Prelim Date: 12/10/2024 10:16:16 AM Sign Date: 12/10/2024 10:16:16 AM Ordering Provider: TAMRA MEDEIROS RP XR CHEST 2 VIEWS Observed: 11/27/2024 1:38 PM Status: F Source: [facility] ORIGINAL EXAMINATION: TWO XRAY VIEWS OF THE CHEST11/27/2024 1:40 pm XR Chest two views COMPARISON: 08/29/2024 HISTORY: ORDERING SYSTEM PROVIDED HISTORY: Reason for Exam: Chest Pain, FINDINGS: No suspicious nodule, acute infiltrate, consolidation,mass, pneumothorax, pleural fluid, or vascular congestion is seen. Heart size and mediastinal contours are within normal limits for age and projection. No acute skeletal abnormality. IMPRESSION: No acute cardiopulmonary process. Interpreted by: Rudy Martinez MD Preliminary Report By: Rudy Martinez MD Electronically signed By Rudy Martinez MD Dictated Date: 11/27/2024 1:44:45 PM Prelim Date: 11/27/2024 1:45:11 PM Sign Date: 11/27/2024 1:45:11 PM Ordering Provider: BARBY WYATT Collected: 12:59 PM Status: F Source: [facility] TYPE CODE TESTS RESULT OUT OF RANGE REFERENCE UNITS LAB DIMER(LOINC) D-Dimer <200 0-230 ng/mL D-DU Result Comment: DDN: Results reported in D-DU ng/mL. Negative for D-dimer. DVT/PE is highly unlikely. Note: False negative results may be seen in patients on anticoagulant therapy. The result of the D-Dimer test should be evaluated in the context of all the clinical and laboratory data available. In those instances where the laboratory result does not agree with the clinical evaluation, additional tests should be performed accordingly. If the D-Dimer result is used to exclude DVT or PE, the recommended cutoff value is less than 230 ng/mL. The D-Dimer result should not be used alone to rule in DVT/PE, but should be used in conjunction with a clinical pretest probability (PTP)assessment model to exclude venous thromboembolism (VTE) in patients suspected of deep venous thrombosis (DVT) and pulmonary embolism (PE). Performed By: Eula loja [address], [place] [address] CBC Collected: 12:56 PM Status: F Source: [facility] TYPE CODE TESTS RESULT OUT OF RANGE REFERENCE UNITS LAB WBC(LOINC) WBC 8.9 4.5-10.8 10 3/mcL LAB RBCCT(LOINC) RBC 4.55 4.10-5.30 10 6/mcL LAB HGB(LOINC) Hgb 12.7 12.0-16.0 G/dL LAB HCT(LOINC) Hct 37.6 34.0-46.0 % LAB MCV(LOINC) MCV 82.5 80.0-99.0 fL LAB MCH(LOINC) MCH 27.8 27.0-33.0 pg LAB MCHC(LOINC) MCHC 33.7 32.0-36.0 G/dL LAB RDW(LOINC) RDW 14.3 11.5-15.5 % LAB PLT(LOINC) Platelet 392 150-450 10 3/mcL LAB MPV(LOINC) MPV 6.7 6.6-10.5 fL Performed By: Eula loja [address] [place] [address] .AUTO DIFF Collected: 11/27/2024 12:56 PM Status: F Source: [facility] TYPE CODE TESTS RESULT OUT OF RANGE REFERENCE UNITS LAB JENELLE(LOINC) Neutrophil % 63.3 50.0-75.0 % LAB LYM(LOINC) Lymphocyte % 28.3 20.0-40.0 % LAB MON(LOINC) Monocyte % 6.2 2.0-13.0 % LAB EO(LOINC) Eosinophil % 1.3 0.0-6.0 % LAB BAS(LOINC) Basophil % 0.9 0.0-2.5 % LAB ABLYM(LOINC) Lymphocyte, Absolute 2.5 0.9-4.3 10 3/mcL LAB LORY(LOINC) Monocyte, Absolute 0.6 0.1-1.4 10 3/mcL LAB AEOS(LOINC) Eosinophil, Absolute 0.1 0.0-0.7 10 3/mcL LAB ABAS(LOINC) Basophil, Absolute 0.1 0.0-0.3 10 3/mcL Performed By: Eula loja [address] [place] [id number] .NEUABS Collected: 12:56 PM Status: F Source: [facility] TYPE CODE TESTS RESULT OUT OF RANGE REFERENCE UNITS LAB ANEU(LOINC) Neutrophil, Absolute 5.7 2.3-8.1 10 3/mcL Performed By: Eula Mar [address] [address] .MDW Collected: 11/27/2024 12:56 PM Status: F Source: [facility] TYPE CODE TESTS RESULT OUT OF RANGE REFERENCE UNITS LAB MDW(LOINC) Monocyte Distribution Width 17.44 0.00-20.00 Result Comment: For ED adult patients suspected of sepsis, MDW<=20.0 does not rule out sepsis or risk of sepsis Performed By: Eula loja [address] [place] [address] BMP Collected: 11/27/2024 12:56 PM Status: F Source: [facility] TYPE CODE TESTS RESULT OUT OF RANGE REFERENCE UNITS LAB GLU(LOINC) Glucose Level 98 70-105 mg/dL LAB NA(LOINC) Sodium Level 138 136-145 mmol/L LAB K(LOINC) Potassium Level 3.7 3.5-5.1 mmol/L LAB CL(LOINC) Chloride 101 98-107 mmol/L LAB CO2(LOINC) CO2 29 22-29 mmol/L LAB EBAL(LOINC) Electrolyte Balance 8.0 4.0-15.0 mEq/L LAB BUN(LOINC) BUN 10 7-18 mg/dL LAB CRE(LOINC) Creatinine Lvl (s) 0.61 0.51-0.95 mg/dL LAB BC(LOINC) BUN/Creatinine Ratio 16 7-27 ratio LAB CA(LOINC) Calcium Lvl 9.0 8.4-10.2 mg/dL Performed By: Eula loja [address] [place] [id number] PBNP Collected: 12:56 PM Status: F Source: [facility] TYPE CODE TESTS RESULT OUT OF RANGE REFERENCE UNITS LAB PBNP(LOINC) N-Terminal proBNP 35 0-125 pg/mL Result Comment: NT-proBNP re sults of less than 300 pg/mL effectively rules out acute congestive heart failure with 99% negative predictive value. Performed By: Eula loja [address] [place] [address] .GFR Collected: 12:56 PM Status: F Source: [facility] TYPE CODE TESTS RESULT OUT OF RANGE REFERENCE UNITS LAB eGFR(LOINC) Estimated Glomerular Filtration Rate 117 ml/min/1. 73sqm Result Comment: Stages of Chronic Kidney Disease (CKD) Stage Description eGFR(ml/min/1.73 sq.m.) CKD 1 Normal kidney function or >=90 normal kindney function with possible kidney damage (ex. Proteinuria) CKD 2 Kidney damage with mild loss 60-89 of kidney function CKD 3a Mild to moderate loss of kidney 45-59 function CKD 3b Moderate to severe loss of 30-44 of kindey function CKD 4 Severe loss of kidney function 15-29 CKD 5 Kidney failure <15 Note: (go live 2024) the eGFR calculation was updated to the 2020 CKD-EPI creatinine equation without a race factor to calculate the eGFR results. Performed By: Eula loja [address] [place] [address] TROPHS Collected: 11/27/2024 12:56 PM Status: F Source: [facility] TYPE CODE TESTS RESULT OUT OF RANGE REFERENCE UNITS LAB HSTROP(LOINC) High Sensitivity Troponin I <4 0-51 ng/L Result Comment: Low AR check ed on instrument -GS High Sensitive Troponin I Reference Ranges: Female: 0-51 ng/L Male: 0-76 ng/L Testing performed on [employer] using a homogeneous sandwich chemiluminescent immunoassay based on [employer] technology. Performed By: Eula loja [address] [place] [id number] CBC Collected: 12:31 PM Status: F Source: [facility] TYPE CODE TESTS RESULT OUT OF RANGE REFERENCE UNITS LAB WBC(LOINC) WBC 7.5 4.5-10.8 10 3/mcL LAB RBCCT(LOINC) RBC 4.46 4.10-5.30 10 6/mcL LAB HGB(LOINC) Hgb 12.6 12.0-16.0 G/dL LAB HCT(LOINC) Hct 37.4 34.0-46.0 % LAB MCV(LOINC) MCV 84.0 80.0-99.0 fL LAB MCH(LOINC) MCH 28.2 27.0-33.0 pg LAB MCHC(LOINC) MCHC 33.6 32.0-36.0 G/dL LAB RDW(LOINC) RDW 14.4 11.5-15.5 % LAB PLT(LOINC) Platelet 417 150-450 10 3/mcL LAB MPV(LOINC) MPV 7.5 6.6-10.5 fL Performed By: Eula loja [address] [place] [address] .AUTO DIFF Collected: 11/05/2024 12:31 PM Status: F Source: [facility] TYPE CODE TESTS RESULT OUT OF RANGE REFERENCE UNITS LAB JENELLE(LOINC) Neutrophil % 61.0 50.0-75.0 % LAB LYM(LOINC) Lymphocyte % 31.2 20.0-40.0 % LAB MON(LOINC) Monocyte % 6.2 2.0-13.0 % LAB EO(LOINC) Eosinophil % 0.9 0.0-6.0 % LAB BAS(LOINC) Basophil % 0.7 0.0-2.5 % LAB ABLYM(LOINC) Lymphocyte, Absolute 2.3 0.9-4.3 10 3/mcL LAB LORY(LOINC) Monocyte, Absolute 0.5 0.1-1.4 10 3/mcL LAB AEOS(LOINC) Eosinophil, Absolute 0.1 0.0-0.7 10 3/mcL LAB ABAS(LOINC) Basophil, Absolute 0.1 0.0-0.3 10 3/mcL Performed By: Eula loja [address] [place] [id number] .NEUABS Collected: 12:31 PM Status: F Source: [facility] TYPE CODE TESTS RESULT OUT OF RANGE REFERENCE UNITS LAB ANEU(LOINC) Neutrophil, Absolute 4.6 2.3-8.1 10 3/mcL Performed By: Eula Mar [address] [address] TSH Collected: 12:31 PM Status: F Source: [facility] TYPE CODE TESTS RESULT OUT OF RANGE REFERENCE UNITS LAB TSH(LOINC) TSH 0.19 Low 0.36-3.74 mcIU/mL Performed By: Eula loja [address] [place] [address] FT4 Collected: 12:31 PM Status: F Source: [facility] TYPE CODE TESTS RESULT OUT OF RANGE REFERENCE UNITS LAB FT4(LOINC) Free T4 0.94 0.76-1.46 ng/dL Performed By: Eula Mar [address] [address] CMP Collected: 11/05/2024 12:31 PM Status: F Source: [facility] TYPE CODE TESTS RESULT OUT OF RANGE REFERENCE UNITS LAB GLU(LOINC) Glucose Level 101 70-105 mg/dL LAB NA(LOINC) Sodium Level 136 136-145 mmol/L LAB K(LOINC) Potassium Level 3.9 3.5-5.1 mmol/L LAB CL(LOINC) Chloride 99 98-107 mmol/L LAB CO2(LOINC) CO2 32 High 22-29 mmol/L LAB EBAL(LOINC) Electrolyte Balance 5.0 4.0-15.0 mEq/L LAB BUN(LOINC) BUN 12 7-18 mg/dL LAB CRE(LOINC) Creatinine Lvl (s) 0.56 0.51-0.95 mg/dL LAB BC(LOINC) BUN/Creatinine Ratio 21 7-27 ratio LAB CA(LOINC) Calcium Lvl 9.5 8.4-10.2 mg/dL LAB PROT(LOINC) Total Protein 8.1 6.4-8.2 G/dL LAB ALB(LOINC) Albumin Level 3.9 3.5-5.0 G/dL LAB GLB(LOINC) Globulin 4.2 2.7-4.4 G/dL LAB AG(LOINC) A/G Ratio 0.9 Low 1.1-2.5 ratio LAB BILT(LOINC) Bili Total 0.3 0.2-1.0 mg/dL Result Comment: Use of this assay is not recommended for patients undergoing treatment with eltrombopag due to the potential for falsely elevated results. LAB AP(LOINC) Alk Phos 81 40-135 U/L LAB AST(LOINC) AST/SGOT 17 10-40 U/L LAB ALT(LOINC) ALT/SGPT 24 14-59 U/L Performed By: Eula loja [address] [place] [id number] .GFR Collected: 5 12:31 PM Status: F Source: [facility] TYPE CODE TESTS RESULT OUT OF RANGE REFERENCE UNITS LAB eGFR(LOINC) Estimated Glomerular Filtration Rate 120 ml/min/1. 73sqm Result Comment: Stages of Chronic Kidney Disease (CKD) Stage Description eGFR(ml/min/1.73 sq.m.) CKD 1 Normal kidney function or >=90 normal kindney function with possible kidney damage (ex. Proteinuria) CKD 2 Kidney damage with mild loss 60-89 of kidney function CKD 3a Mild to moderate loss of kidney 45-59 function CKD 3b Moderate to severe loss of 30-44 of kindey function CKD 4 Severe loss of kidney function 15-29 CKD 5 Kidney failure <15 Note: (go live 2024) the eGFR calculation was updated to the 2020 CKD-EPI creatinine equation without a race factor to calculate the eGFR results. Performed By: Eula loja [address] [place] [id number] LIPID Collected: 11/05/2024 12:31 PM Status: F Source: [facility] TYPE CODE TESTS RESULT OUT OF RANGE REFERENCE UNITS LAB CHOL(LOINC) Cholesterol 274 High 0-200 mg/dL Result Comment: Cholesterol Reference Interval: Less than 200 Desirable 200-239 Borderline high risk 240 and above High risk LAB TRIG(LOINC) Triglycerides 101 0-150 mg/dL Result Comment: Triglyceride Reference Interval: Less than 150 Normal 150-199 Borderline high risk 200-499 High risk 500 or higher Very high risk LAB HD(LOINC) HDL Cholesterol 83 High 40-60 mg/dL LAB LDL(LOINC) LDL Cholesterol 171 High 0-130 mg/dL Performed By: Eula loja [address] [place] [address] FT3 Collected: 12:31 PM Status: F Source: [facility] TYPE [facility] RESULT OUT OF RANGE REFERENCE UNITS LAB FT3(LOINC) Free T3 2.99 2.30-4.00 pg/mL Performed By: Eula loja [address] [place] [address] VIDH Collected: 12:31 PM Status: F Source: [facility] TYPE CODE TESTS RESULT OUT OF RANGE REFERENCE UNITS LAB VIDH(LOINC) Vit. D 25-Hydroxy 35.0 ng/mL Result Comment: Interpretive Values Based on Total 25(OH) Vitamin D: Deficient <20 ng/mL Insufficient 20 - <30 ng/mL Sufficient 30-100 ng/mL Performed By: Eula loja [address] [place] [address] A1C Collected: 12:31 PM Status: F Source: [facility] TYPE CODE TESTS RESULT OUT OF RANGE REFERENCE UNITS LAB A1C(LOINC) Hgb A1c 5.7 4.3-6.4 % LAB eAG(LOINC) Est Avg Glucose 117 mg/dL Result Comment: Estimated Av erage Glucose calculated by equation ((28.7xA1C)- 46.7) Estimated average glucose (eAG) is a calculated value from Hemoglobin A1C and is retail service representative of the average blood glucose level in the last 2-3 month period. Normal range: less than 114 mg/dL Performed By: Eula Mar [address] [address] THYAB Collected: 11/05/2024 12:31 PM Status: F Source: [facility] TYPE CODE TESTS RESULT OUT OF RANGE REFERENCE UNITS LAB THYRG(LOINC) Thyroglobulin Ab 20 15-60 un its/ml LAB MCRSO(LOINC) anti-Thyroid Peroxidase 86 High 0-60 units/ml Performed By: [address] [address] FARIDEH Collected: 11/05/2024 12:31 PM Status: F Source: [facility] Order Comment: AM TYPE CODE TESTS RESULT OUT OF RANGE REFERENCE UNITS LAB FARIDEH(LOINC) Cortisol Level 21.0 mcg/d L Result Comment: Cortisol AM Reference Range 6.5-26.0 mcg/dL Cortisol PM Reference Range 3.5-15.0 mcg/dL Performed By: [address] [address] ACTH2 Collected: 12:31 PM Status: F Source: [facility] TYPE CODE TESTS RESULT OUT OF RANGE REFERENCE UNITS LAB 661316(LOINC) ACTH 42.6 7.2-63.3 pg/mL Result Comment: ACTH referen ce interval for samples collected between 7 and 10 AM. Performed At: [facility] [id number] Ange Rao PhD Ph:[phone] Performed By: Eula Mar [address] [address] THYRORF Collected: 12:31 PM Status: F Source: [facility] TYPE CODE TESTS RESULT OUT OF RANGE REFERENCE UNITS LAB 919345(LOINC) Thyroglob Ab <1.0 0.0-0.9 IU/mL Result Comment: Thyroglobuli n Antibody measured by Vernell Effingham Methodology It should be noted that the presence of thyroglobulin antibodies may not be pathogenic nor diagnostic, especially at very low levels. The assay biodiesel production technician has found that four percent of individuals without evidence of thyroid disease or autoimmunity will have positive TgAb levels up to 4 IU/mL. Performed At: [address] [id number] Ange Rao PhD Ph:[phone] Performed By: Eula Mar [place] [address] .THYROGLOBULIN BY ЕКАТЕРИНА [id number] Collected: 11/05/2024 12:31 PM Status: F Source: [facility] TYPE CODE TESTS RESULT OUT OF RANGE REFERENCE UNITS LAB 624459(LOINC) Thyroglob ЕКАТЕРИНА <0.1 Low 1.5-38.5 ng/ mL Result Comment: According to the National Academy of Clinical Biochemistry, the reference interval for Thyroglobulin (TG) should be related to euthyroid patients and not for patients who underwent thyroidectomy. TG reference intervals for these patients depend on the residual mass of the thyroid tissue left after surgery. Establishing a post-operative baseline is recommended. The assay limit of quantitation is 0.1 ng/mL Thyroglobulin measured by Vernell David Immunometric Assay Performed At: [address] [id number] Ange Rao PhD Ph:[phone] Performed By: Eula Mar [place] [address] ALDOS Collected: 12:31 PM Status: F Source: [facility] TYPE CODE TESTS RESULT OUT OF RANGE REFERENCE UNITS LAB 492542(LOINC) Aldosterone. 8.9 0.0-30.0 ng/d L Result Comment: This test wa s developed and its performance characteristics determined by [facility]. It has not been cleared or approved by the Food and Drug Administration. Performed At: [address] [id number] Matheus Figueredo MD Ph:[phone] Performed By: [place] [address] METP Collected: 11/05/2024 12:31 PM Status: F Source: [facility] TYPE CODE TESTS RESULT OUT OF RANGE REFERENCE UNITS LAB 453987(LOINC) Normetanephrine Lvl 68.9 0.0-210.1 pg/mL Result Comment: This test wa s developed and its performance characteristics determined by [facility]. It has not been cleared or approved by the Food and Drug Administration. LAB 707085(LOINC) Metanephrine Lvl 38.7 0.0-88.0 pg/mL Result Comment: This test wa s developed and its performance characteristics determined by [facility]. It has not been cleared or approved by the Food and Drug Administration. Performed At: [facility] [id number] Matheus Figueredo MD Ph:[phone] Performed By: Eula Mar [address] [address] RENIN Collected: 12:31 PM Status: F Source: [facility] TYPE CODE TESTS RESULT OUT OF RANGE REFERENCE UNITS LAB 618149(LOINC) Renin Activity 1.590 0.167-5.380 ng/mL/hr Result Comment: This test wa s developed and its performance characteristics determined by [facility]. It has not been cleared or approved by the Food and Drug Administration. Performed At: [address] [id number] Matheus Figueredo MD Ph:[phone] Performed By: Eularyder Mar [address] [address] CBC Collected: 5 1:31 PM Status: F Source: [facility] TYPE CODE TESTS RESULT OUT OF RANGE REFERENCE UNITS LAB WBC(LOINC) WBC 8.4 4.5-10.8 10 3/mcL LAB RBCCT(LOINC) RBC 4.53 4.10-5.30 10 6/mcL LAB HGB(LOINC) Hgb 12.8 12.0-16.0 G/dL LAB HCT(LOINC) Hct 38.0 34.0-46.0 % LAB MCV(LOINC) MCV 83.9 80.0-99.0 fL LAB MCH(LOINC) MCH 28.2 27.0-33.0 pg LAB MCHC(LOINC) MCHC 33.6 32.0-36.0 G/dL LAB RDW(LOINC) RDW 13.9 11.5-15.5 % LAB PLT(LOINC) Platelet 383 150-450 10 3/mcL LAB MPV(LOINC) MPV 6.7 6.6-10.5 fL Performed By: Eula loja [address] [place] [address] .AUTO DIFF Collected: 10/30/2024 1:31 PM Status: F Source: [facility] TYPE CODE TESTS RESULT OUT OF RANGE REFERENCE UNITS LAB JENELLE(LOINC) Neutrophil % 69.1 50.0-75.0 % LAB LYM(LOINC) Lymphocyte % 23.1 20.0-40.0 % LAB MON(LOINC) Monocyte % 6.7 2.0-13.0 % LAB EO(LOINC) Eosinophil % 0.4 0.0-6.0 % LAB BAS(LOINC) Basophil % 0.7 0.0-2.5 % LAB ABLYM(LOINC) Lymphocyte, Absolute 1.9 0.9-4.3 10 3/mcL LAB LORY(LOINC) Monocyte, Absolute 0.6 0.1-1.4 10 3/mcL LAB AEOS(LOINC) Eosinophil, Absolute 0.0 0.0-0.7 10 3/mcL LAB ABAS(LOINC) Basophil, Absolute 0.1 0.0-0.3 10 3/mcL Performed By: Eula loja [address] [place] [address] .NEUABS Collected: 1:31 PM Status: F Source: [facility] TYPE CODE TESTS RESULT OUT OF RANGE REFERENCE UNITS LAB ANEU(LOINC) Neutrophil, Absolute 5.8 2.3-8.1 10 3/mcL Performed By: Eula loja [address] [place] [address] .MDW Collected: 10/30/2024 1:31 PM Status: F Source: [facility] TYPE CODE TESTS RESULT OUT OF RANGE REFERENCE UNITS LAB MDW(LOINC) Monocyte Distribution Width 18.57 0.00-20.00 Result Comment: For ED adult patients suspected of sepsis, MDW<=20.0 does not rule out sepsis or risk of sepsis Performed By: Eula Mar [address] [address] BMP Collected: 10/30/2024 1:31 PM Status: F Source: [facility] TYPE CODE TESTS RESULT OUT OF RANGE REFERENCE UNITS LAB GLU(LOINC) Glucose Level 103 70-105 mg/dL LAB NA(LOINC) Sodium Level 135 Low 136-145 mmol/L LAB K(LOINC) Potassium Level 3.7 3.5-5.1 mmol/L LAB CL(LOINC) Chloride 100 98-107 mmol/L LAB CO2(LOINC) CO2 28 22-29 mmol/L LAB EBAL(LOINC) Electrolyte Balance 7.0 4.0-15.0 mEq/L LAB BUN(LOINC) BUN 8 7-18 mg/dL LAB CRE(LOINC) Creatinine Lvl (s) 0.49 Low 0.51-0.95 mg/dL LAB BC(LOINC) BUN/Creatinine Ratio 16 7-27 ratio LAB CA(LOINC) Calcium Lvl 9.1 8.4-10.2 mg/dL Performed By: Eula Mar [address] [address] MG Collected: 10/30/2024 1:31 PM Status: F Source: [facility] TYPE CODE TESTS RESULT OUT OF RANGE REFERENCE UNITS LAB MG(LOINC) Magnesium Lvl 1.7 Low 1.8-2.4 mg/dL Performed By: Eula Mar [address] [address] TSHR Collected: 1:31 PM Status: F Source: [facility] TYPE CODE TESTS RESULT OUT OF RANGE REFERENCE UNITS LAB TSH(LOINC) TSH 0.17 Low 0.36-3.74 mcIU/mL Performed By: Eula Carreno[address] [address] .GFR Collected: 10/30/2024 1:31 PM Status: F Source: [facility] TYPE CODE TESTS RESULT OUT OF RANGE REFERENCE UNITS LAB eGFR(LOINC) Estimated Glomerular Filtration Rate >120 ml/min/1. 73sqm Result Comment: Stages of Chronic Kidney Disease (CKD) Stage Description eGFR(ml/min/1.73 sq.m.) CKD 1 Normal kidney function or >=90 normal kindney function with possible kidney damage (ex. Proteinuria) CKD 2 Kidney damage with mild loss 60-89 of kidney function CKD 3a Mild to moderate loss of kidney 45-59 function CKD 3b Moderate to severe loss of 30-44 of kindey function CKD 4 Severe loss of kidney function 15-29 CKD 5 Kidney failure <15 Note: (go live 2024) the eGFR calculation was updated to the 2020 CKD-EPI creatinine equation without a race factor to calculate the eGFR results. Performed By: [facility] loja [address] [place], [place] [address] FT4 Collected: 1:31 PM Status: F Source: [facility] Order Comment: Ordered by Hina schaefer TYPE CODE TESTS RESULT OUT OF RANGE REFERENCE UNITS LAB FT4(LOINC) Free T4 0.87 0.76-1.46 ng/dL Performed By: [facility] [address] [place], [place] [address] CT HEAD OR BRAIN W/O CONTRAST Observed: 10/29/2024 2:27 PM Status: F Source: [facility] ORIGINAL HISTORY: Headache COMPARISON: No TECHNIQUE: Routine noncontrast head CT, with sagittal and coronal reconstructions. This exam was performed according to our departmental dose optimization program, and includes the following measures where applicable: automated exposure control, adjustment of the mAs and/or kVp according to patient size and/or exam, and an iterative reconstruction algorithm. FINDINGS: The ventricles and sulci are normal in size and configuration. There are no abnormal intra or extra-axial fluid collections. Phillips-white matter differentiation is maintained. The calvaria and the bones of the base of the skull are intact. IMPRESSION: Negative. Interpreted by: Benjamin Steele MD Preliminary Report By: Benjamin Steele MD Electronically signed By Benjamin Steele MD Dictated Date: 10/29/2024 3:06:32 PM Prelim Date: 10/29/2024 3:07:13 PM Sign Date: 10/29/2024 3:07:13 PM Ordering Provider: JALEN ALLISON CT SOFT TISSUE NECK W/ CONTRAST Observed: 09/12/2024 9:39 PM Status: F Source: [facility] ORIGINAL EXAMINATION: CT OF THE NECK SOFT TISSUE WITH CONTRAST 09/12/2024 TECHNIQUE: CT of the neck was performed with the administration of intravenous contrast. Multiplanar reformatted images are provided for review. Automated exposure control, iterative reconstruction, and/or weight based adjustment of the mA/kV was utilized to reduce the radiation dose to as low as reasonably achievable. COMPARISON: None. HISTORY: ORDERING SYSTEM PROVIDED HISTORY: Reason for Exam: neck pain FINDINGS: PHARYNX/LARYNX: The tonsillar pillars are normal in appearance. The tongue is normal in appearance. The valleculae, epiglottis, aryepiglottic folds and pyriform sinuses appear unremarkable. The true and false vocal cords are normal in appearance. No mass or abscess is seen. SALIVARY GLANDS/THYROID: The parotid and submandibular glands appear unremarkable. The thyroid gland is surgically absent. LYMPH NODES: No cervical or supraclavicular lymphadenopathy is seen. SOFT TISSUES: No appreciable soft tissue swelling or mass is seen. BRAIN/ORBITS/SINUSES: The visualized portion of the intracranial contents appear unremarkable. The visualized portion of the orbits, paranasal sinuses and mastoid air cells demonstrate no acute abnormality. Bilateral maxillary mucosal retention cyst. LUNG APICES/SUPERIOR MEDIASTINUM: No focal consolidation is seen within the visualized lung apices. No superior mediastinal lymphadenopathy or mass. The visualized portion of the trachea appears unremarkable. BONES: Right mandibular 1st molar periapical lucency which may relate to prosthesis. IMPRESSION: No acute abnormality of the soft tissue structures of the neck. Interpreted by: Shantanu Wilson Preliminary Report By: Shantanu Wilson Electronically signed By Shantanu Wilson Dictated Date: 09/12/2024 10:11:59 PM Prelim Date: 09/12/2024 10:24:30 PM Sign Date: 09/12/2024 10:24:30 PM Ordering Provider: МАРИНА WHELAN CBC Collected: 9:20 PM Status: F Source: [facility] TYPE CODE TESTS RESULT OUT OF RANGE REFERENCE UNITS LAB WBC(LOINC) WBC 12.3 High 4.5-10.8 10 3/mcL LAB RBCCT(LOINC) RBC 4.35 4.10-5.30 10 6/mcL LAB HGB(LOINC) Hgb 12.4 12.0-16.0 G/dL LAB HCT(LOINC) Hct 37.0 34.0-46.0 % LAB MCV(LOINC) MCV 85.1 80.0-99.0 fL LAB MCH(LOINC) MCH 28.5 27.0-33.0 pg LAB MCHC(LOINC) MCHC 33.4 32.0-36.0 G/dL LAB RDW(LOINC) RDW 14.7 11.5-15.5 % LAB PLT(LOINC) Platelet 355 150-450 10 3/mcL LAB MPV(LOINC) MPV 6.9 6.6-10.5 fL Performed By: Eula loja [address] [place] [id number] .AUTO DIFF Collected: 09/12/2024 9:20 PM Status: F Source: [facility] TYPE CODE TESTS RESULT OUT OF RANGE REFERENCE UNITS LAB JENELLE(LOINC) Neutrophil % 66.7 50.0-75.0 % LAB LYM(LOINC) Lymphocyte % 25.2 20.0-40.0 % LAB MON(LOINC) Monocyte % 7.5 2.0-13.0 % LAB EO(LOINC) Eosinophil % 0.3 0.0-6.0 % LAB BAS(LOINC) Basophil % 0.3 0.0-2.5 % LAB ABLYM(LOINC) Lymphocyte, Absolute 3.1 0.9-4.3 10 3/mcL LAB LORY(LOINC) Monocyte, Absolute 0.9 0.1-1.4 10 3/mcL LAB AEOS(LOINC) Eosinophil, Absolute 0.0 0.0-0.7 10 3/mcL LAB ABAS(LOINC) Basophil, Absolute 0.0 0.0-0.3 10 3/mcL Performed By: Eula loja [address] [place] [address] .NEUABS Collected: 9:20 PM Status: F Source: [facility] TYPE CODE TESTS RESULT OUT OF RANGE REFERENCE UNITS LAB ANEU(LOINC) Neutrophil, Absolute 8.2 High 2.3-8.1 10 3/mcL Performed By: Eula Mar [address] [address] .MDW Collected: 09/12/2024 9:20 PM Status: F Source: [facility] TYPE CODE TESTS RESULT OUT OF RANGE REFERENCE UNITS LAB MDW(LOINC) Monocyte Distribution Width 16.47 0.00-20.00 Result Comment: For ED adult patients suspected of sepsis, MDW<=20.0 does not rule out sepsis or risk of sepsis Performed By: Eula loja [address] [place], [place] [address] BMP Collected: 09/12/2024 9:20 PM Status: F Source: [facility] TYPE CODE TESTS RESULT OUT OF RANGE REFERENCE UNITS LAB GLU(LOINC) Glucose Level 90 70-105 mg/dL LAB NA(LOINC) Sodium Level 141 136-145 mmol/L LAB K(LOINC) Potassium Level 3.5 3.5-5.1 mmol/L LAB CL(LOINC) Chloride 104 98-107 mmol/L LAB CO2(LOINC) CO2 28 22-29 mmol/L LAB EBAL(LOINC) Electrolyte Balance 9.0 4.0-15.0 mEq/L LAB BUN(LOINC) BUN 7 7-18 mg/dL LAB CRE(LOINC) Creatinine Lvl (s) 0.56 0.51-0.95 mg/dL LAB BC(LOINC) BUN/Creatinine Ratio 12 7-27 ratio LAB CA(LOINC) Calcium Lvl 9.0 8.4-10.2 mg/dL Performed By: Eula loja [address] [place] [address] .GFR Collected: 09/12/2024 9:20 PM Status: F Source: [facility] TYPE CODE TESTS RESULT OUT OF RANGE REFERENCE UNITS LAB eGFR(LOINC) Estimated Glomerular Filtration Rate 120 ml/min/1. 73sqm Result Comment: Stages of Chronic Kidney Disease (CKD) Stage Description eGFR(ml/min/1.73 sq.m.) CKD 1 Normal kidney function or >=90 normal kindney function with possible kidney damage (ex. Proteinuria) CKD 2 Kidney damage with mild loss 60-89 of kidney function CKD 3a Mild to moderate loss of kidney 45-59 function CKD 3b Moderate to severe loss of 30-44 of kindey function CKD 4 Severe loss of kidney function 15-29 CKD 5 Kidney failure <15 Note: (go live 2024) the eGFR calculation was updated to the 2020 CKD-EPI creatinine equation without a race factor to calculate the eGFR results. Performed By: Eula loja [address] [place], [place] [address] CT ANGIOGRAPHY CHEST W/CONTRAST Observed: 08/29/2024 5:06 PM Status: F Source: [facility] ORIGINAL EXAMINATION: CTA OF THE CHEST08/29/2024 5:21 pm CTA CHEST WITH CONTRAST TECHNIQUE: CTA of the chest was performed after the administration of intravenous contrast. Multiplanar reformatted images are provided for review. MIP images are provided for review. Automated exposure control, iterative reconstruction, and/or weight based adjustment of the mA/kV was utilized to reduce the radiation dose to as low as reasonably achievable. CTA of the thorax was acquired in the axial plane. Coronal and sagittal reformatted images were reviewed. Three dimensional reconstructions were created on a separate workstation. This exam was performed according to our departmental dose optimization program, and includes the following measures where applicable: automated exposure control, adjustment of the mAs and/or kVp according to patient size and/or exam, and an iterative reconstruction algorithm. COMPARISON: No CT chest comparison. Correlation with CT abdomen pelvis 03/01/2024 HISTORY: ORDERING SYSTEM PROVIDED HISTORY: Reason for Exam: SOB, fatigue for several days Pulmonary hypertension suspected FINDINGS: Pulmonary Arteries:Main pulmonary artery is nondilated. Contrast bolus is adequate to exclude pulmonary arterial embolus to the segmental level. No evidence of right heart strain. Mediastinum: Thoracic aorta is normal in size. Heart is normal in size. No pericardial effusion. No pathologically enlarged mediastinal or hilar lymph nodes by size criteria. Lungs: Central tracheobronchial tree is patent. No focal consolidation, pneumothorax, or pleural effusion. Upper Abdomen:Limited evaluation demonstrates a 2.6 cm left adrenal mass measuring 22 Hounsfield units. Status post cholecystectomy. Bones/Soft Tissues: No evidence of acute fracture. Unremarkable soft tissues. IMPRESSION: 1. No evidence of pulmonary embolus. 2. Left adrenal mass measuring 2.6 cm, probable benign adenoma. Recommend CT or MRI adrenals for further evaluation. Interpreted by: Kirby Montes Preliminary Report By: Kirby Montes Electronically signed By Kirby Montes Dictated Date: 08/29/2024 5:34:01 PM Prelim Date: 08/29/2024 5:39:53 PM Sign Date: 08/29/2024 5:39:53 PM Ordering Provider: YESENIA SINGH Interpreted by: Kirby Montes Preliminary Report By: Kirby Montes Electronically signed By Kirby Montes Dictated Date: 08/29/2024 5:34:01 PM Prelim Date: 08/29/2024 5:39:53 PM Sign Date: 08/29/2024 5:39:53 PM Ordering Provider: YESENIA SINGH XR CHEST 2 VIEWS Observed: 08/29/2024 2:40 PM Status: F Source: [facility] ORIGINAL EXAMINATION: TWO XRAY VIEWS OF THE CHEST 08/29/2024 2:51 pm COMPARISON: None. HISTORY: ORDERING SYSTEM PROVIDED HISTORY: Reason for Exam: SOB/Cough/Fever FINDINGS: Normal cardiomediastinal silhouette. Clear lungs, sharp costophrenic angles. No pneumothorax. Intact bones. IMPRESSION: Normal study Interpreted by: Alcides Johnson Preliminary Report By: Alcides Johnson Electronically signed By Alcides Johnson Dictated Date: 08/29/2024 3:00:23 PM Prelim Date: 08/29/2024 3:00:47 PM Sign Date: 08/29/2024 3:00:47 PM Ordering Provider: YESENIA SINGH Interpreted by: Alcides Johnson Preliminary Report By: Alcides Johnson Electronically signed By Alcides Johnson Dictated Date: 08/29/2024 3:00:23 PM Prelim Date: 08/29/2024 3:00:47 PM Sign Date: 08/29/2024 3:00:47 PM Ordering Provider: YESENIA SINGH CBC Collected: 1:41 PM Status: F Source: [facility] TYPE CODE TESTS RESULT OUT OF RANGE REFERENCE UNITS LAB WBC(LOINC) WBC 8.7 4.5-10.8 10 3/mcL LAB RBCCT(LOINC) RBC 4.23 4.10-5.30 10 6/mcL LAB HGB(LOINC) Hgb 12.0 12.0-16.0 G/dL LAB HCT(LOINC) Hct 35.8 34.0-46.0 % LAB MCV(LOINC) MCV 84.8 80.0-99.0 fL LAB MCH(LOINC) MCH 28.4 27.0-33.0 pg LAB MCHC(LOINC) MCHC 33.5 32.0-36.0 G/dL LAB RDW(LOINC) RDW 14.1 11.5-15.5 % LAB PLT(LOINC) Platelet 357 150-450 10 3/mcL LAB MPV(LOINC) MPV 6.6 6.6-10.5 fL Performed By: Eula loja [address] [place] [id number] .AUTO DIFF Collected: 08/29/2024 1:41 PM Status: F Source: [facility] TYPE CODE TESTS RESULT OUT OF RANGE REFERENCE UNITS LAB JENELLE(LOINC) Neutrophil % 75.7 High 50.0-75.0 % LAB LYM(LOINC) Lymphocyte % 17.9 Low 20.0-40.0 % LAB MON(LOINC) Monocyte % 5.4 2.0-13.0 % LAB EO(LOINC) Eosinophil % 0.4 0.0-6.0 % LAB BAS(LOINC) Basophil % 0.6 0.0-2.5 % LAB ABLYM(LOINC) Lymphocyte, Absolute 1.6 0.9-4.3 10 3/mcL LAB LORY(LOINC) Monocyte, Absolute 0.5 0.1-1.4 10 3/mcL LAB AEOS(LOINC) Eosinophil, Absolute 0.0 0.0-0.7 10 3/mcL LAB ABAS(LOINC) Basophil, Absolute 0.1 0.0-0.3 10 3/mcL Performed By: Eula loja [address] [place] [address] .NEUABS Collected: 1:41 PM Status: F Source: [facility] TYPE CODE TESTS RESULT OUT OF RANGE REFERENCE UNITS LAB ANEU(LOINC) Neutrophil, Absolute 6.6 2.3-8.1 10 3/mcL Performed By: Eula loja [address] [place] [address] .MDW Collected: 08/29/2024 1:41 PM Status: F Source: [facility] TYPE CODE TESTS RESULT OUT OF RANGE REFERENCE UNITS LAB MDW(LOINC) Monocyte Distribution Width 16.45 0.00-20.00 Result Comment: For ED adult patients suspected of sepsis, MDW<=20.0 does not rule out sepsis or risk of sepsis Performed By: Eula Mar [place] [address] TROPHS Collected: 08/29/2024 1:41 PM Status: F Source: [facility] TYPE CODE TESTS RESULT OUT OF RANGE REFERENCE UNITS LAB HSTROP(LOINC) High Sensitivity Troponin I 5 0-51 ng/L Result Comment: High Sensiti ve Troponin I Reference Ranges: Female: 0-51 ng/L Male: 0-76 ng/L Testing performed on [employer] using a homogeneous sandwich chemiluminescent immunoassay based on [employer] technology. Performed By: Eula Carrenozuri loja [address] [place], [place] [address] DIMER Collected: 1:41 PM Status: F Source: [facility] TYPE CODE TESTS RESULT OUT OF RANGE REFERENCE UNITS LAB DIMER(LOINC) D-Dimer <200 0-230 ng/mL D-DU Result Comment: DDN: Results reported in D-DU ng/mL. Negative for D-dimer. DVT/PE is highly unlikely. Note: False negative results may be seen in patients on anticoagulant therapy. The result of the D-Dimer test should be evaluated in the context of all the clinical and laboratory data available. In those instances where the laboratory result does not agree with the clinical evaluation, additional tests should be performed accordingly. If the D-Dimer result is used to exclude DVT or PE, the recommended cutoff value is less than 230 ng/mL. The D-Dimer result should not be used alone to rule in DVT/PE, but should be used in conjunction with a clinical pretest probability (PTP)assessment model to exclude venous thromboembolism (VTE) in patients suspected of deep venous thrombosis (DVT) and pulmonary embolism (PE). Performed By: Eularyder Carrenozuri loja [address] [place], [place] [address] BMP Collected: 08/29/2024 1:41 PM Status: F Source: [facility] TYPE CODE TESTS RESULT OUT OF RANGE REFERENCE UNITS LAB GLU(LOINC) Glucose Level 95 70-105 mg/dL LAB NA(LOINC) Sodium Level 140 136-145 mmol/L LAB K(LOINC) Potassium Level 3.8 3.5-5.1 mmol/L LAB CL(LOINC) Chloride 104 98-107 mmol/L LAB CO2(LOINC) CO2 29 22-29 mmol/L LAB EBAL(LOINC) Electrolyte Balance 7.0 4.0-15.0 mEq/L LAB BUN(LOINC) BUN 14 7-18 mg/dL LAB CRE(LOINC) Creatinine Lvl (s) 0.58 0.51-0.95 mg/dL LAB BC(LOINC) BUN/Creatinine Ratio 24 7-27 ratio LAB CA(LOINC) Calcium Lvl 9.2 8.4-10.2 mg/dL Performed By: Eula loja [address] [place], [place] [address] PBNP Collected: 08/29/2024 1:41 PM Status: F Source: [facility] TYPE CODE TESTS RESULT OUT OF RANGE REFERENCE UNITS LAB PBNP(LOINC) N-Terminal proBNP 86 0-125 pg/mL Result Comment: NT-proBNP re sults of less than 300 pg/mL effectively rules out acute congestive heart failure with 99% negative predictive value. Performed By: Eula loja [address] [place] [address] .GFR Collected: 08/29/2024 1:41 PM Status: F Source: [facility] TYPE CODE TESTS RESULT OUT OF RANGE REFERENCE UNITS LAB eGFR(LOINC) Estimated Glomerular Filtration Rate 119 ml/min/1. 73sqm Result Comment: Stages of Chronic Kidney Disease (CKD) Stage Description eGFR(ml/min/1.73 sq.m.) CKD 1 Normal kidney function or >=90 normal kindney function with possible kidney damage (ex. Proteinuria) CKD 2 Kidney damage with mild loss 60-89 of kidney function CKD 3a Mild to moderate loss of kidney 45-59 function CKD 3b Moderate to severe loss of 30-44 of kindey function CKD 4 Severe loss of kidney function 15-29 CKD 5 Kidney failure <15 Note: (go live 2024) the eGFR calculation was updated to the 2020 CKD-EPI creatinine equation without a race factor to calculate the eGFR results. Performed By: Eula loja [address] [place] [address] ENCOUNTERS ADMIT/DISCHARGE ACCOUNT NUMBER ADMITTING ENCOUNTER CLASS LOC ATION SOURCE 03/12/2025/ 6 [id number] [facility] [place] [facility] 12/22/2024 [id number] [facility] [place] [facility] 12/18/2024/ 5 [id number] Emergency [place] [facility] 12/10/2024/ 5 [id number] [facility] [place] [facility] 11/27/2024/ 5 [id number] [facility] [place] [facility] 11/05/2024/ 5 [id number] [facility] [place] [facility] 10/30/2024/ 5 [id number] [facility] [place] [facility] 10/29/2024/ 5 [id number] [facility] [place] [facility] 09/12/2024/ 5 [id number] [facility] [place] [facility] 09/02/2024/ 5 [id number] [facility] [place] [facility] 08/29/2024/ 5 [id number] [facility] [place] [facility] 08/21/2024/ 5 [id number] [facility] [place] [facility] PAYERS ENCOUNTER GUARANTOR PAYER SUBSCRIBER SOURCE 03/12/2025 AMINAH BACA: [id number] [place] [address] [address]~[email or web address] (JZ) Primary Insurance:[facility] Number: [id number] e Date:8567-65-50Jviv Name:[facility] [address] [address]EZ: AMINAH OSBORNB: [id number] [address] [address]Qyk: (HP) (WP) [facility] 12/22/2024 AMINAH BARRETTDOB: [id number] [address]~[email or web address] (HP) Primary Insurance:[employer] Number: [id number] e Date:0833-49-93Omyq Name:[place] [address]CO: AMINAH BARRETTDOB: 7307-17-39[place] [address]Kwf: (HP) (WP) [facility] 12/18/2024 AMINAH BARRETTDOB: 4005-27-16[place] [address]~[email or web address] (HP) Primary Insurance:[employer] Number: [id number] e Date:1564-66-27Ctvq Name:ALYCIA [place] [address]CO: AMINAH BARRETTDOB: 1618-57-78[place] [address]Pem: (HP) (WP) [facility] 12/10/2024 AMINAH BARRETTDOB: 1367-94-42[place] [address]~[email or web address] (HP) Primary Insurance:[employer] Number: [id number] e Date:2810-47-69Iqzm Name:[place] [address]SA: AMINAH OSBORNB: [id number] [address]Fsn: (HP) (WP) [facility] 11/27/2024 AMINAH OSBORNB: [id number] [address]~[email or web address] [email or web address] (HP) Primary Insurance:[employer] Number: [id number] e Date:2493-19-13Hkcc Name:XPO Shellie [address] [place] [address]HV: AMINAH OSBORNB: [id number] [address]Dme: (HP) (WP) [facility] 11/05/2024 AMINAH OSBORNB: [id number] [address]~[email or web address] [email or web address] (HP) Primary Insurance:[employer] Number: [id number] e Date:6499-32-09Njky Name:XPO Shellie [address] [place] [address]TV: AMINAH OSBORNB: [id number] [address]Xwi: (HP) (WP) [facility] 10/30/2024 AMINAH OSBORNB: [id number] [address]~holyspi [email or web address] (HP) Primary Insurance:[employer] Number: [id number] e Date:5997-63-60Hbkz Name:[place] [address]JE: AMINAH BARRETTDOB: 6157-00-01[address] [place] [address]Iso: (HP) (WP) [facility] 10/29/2024 AMINAH BARRETTDOB: 8260-37-74[place] [address]~holyspi [email or web address] (HP) Primary Insurance:[employer] Number: [id number] e Date:6115-84-42Udjf Name:[place] [address]GC: AMINAH BARRETTDOB: 8671-65-30[place] [address]Ivs: (HP) (WP) [facility] 09/12/2024 AMINAH BARRETTDOB: 9772-43-49[place] [address]~[email or web address] [email or web address] (HP) Primary Insurance:[employer] Number: [id number] e Date:3637-63-55Umfw Name:[place] [address]YQ: AMINAH BARRETTDOB: 3271-27-02[place] [address]Qho: (HP) (WP) [facility] 09/02/2024 AMINAH BARRETTDOB: 7262-30-78[place] [address]~[email or web address] [email or web address] (HP) Primary Insurance:[employer] Number: [id number] e Date:2155-51-92Xnxn Name:[place] [address]QL: AMINAH OSBORNB: [id number] [address]Dtu: (HP) (WP) [facility] 08/29/2024 AMINAH OSBORNB: [id number] [facility] [place] [facility] [place] [address]~[email or web address] [email or web address] (HP) Primary Insurance:[employer] Number: [id number] e Date:1259-85-78Ejuz Name:[place] [address]OY: AMINAH OSBORNB: [id number] [address]Oaa: (HP) (WP) [facility] 08/21/2024 AMINAH OSBORNB: [id number] [address]~holyspi [email or web address] (HP) Primary Insurance:[employer] Number: [id number] e Date:4655-53-12Jyju Name:[place] [address]EV: AMINAH OSBORNB: [id number] [address]Lva: (HP) (WP) [facility]
== END | disposition home or self-care (01) ==
LOC: EN 04-15 11:39
PROVIDERS: PCP Internal Medicine; Referring Provider Internal Medicine; Visit Provider Internal Medicine Gastroenterology
DX: Z53.8 Procedure and treatment not carried out for other reasons (principal)

== ENCOUNTER → 2025-01-10 | Outpatient (CLI) | payer MEDICAID, SELFPAY | END | disposition home or self-care (01) | LOC: LABSPEC 15:20 | PROVIDERS: PCP Internal Medicine | DX: J02.9 Acute pharyngitis, unspecified (principal) | CPT/HCPCS: 87070 ==